=== PATIENT | female | born 1945 | race Caucasian/White ===

== ENCOUNTER 2016-11-19 14:57 | Inpatient (IN) ==
[2016-11-19] MEDS ORDERED: DUONEB NEB ONE (15:05)
[2016-11-19] MEDS ORDERED: SOLU-MEDROL 125 MG IVP STA ×2 (15:19→22:19)
[2016-11-19] MEDS ORDERED: DUONEB NEB STA ×2 (15:19→16:57)
[2016-11-19 15:28] LABS: ABG BASE EXCESS 1 (-2.0-2.0); ABG HCO3 25.6 (22.0-26.0); ABG PCO2 38.9 mmHg (35-45); ABG PH 7.426 (7.35-7.45); ABG TCO2 27 (22.0-28.0)
[2016-11-19 15:47] LABS: BASOPHILS % (AUTO) 0.5 % (0.0-3.0); EOSINOPHILS # (AUTO) 0.1 K/ul (0.0-0.7); EOSINOPHILS % (AUTO) 1.6 % (0.0-7.0); HEMATOCRIT 36.3 % (37.0-47.0); HEMOGLOBIN 12.2 g/dl (12.0-16.0); IMMATURE GRANULOCYTE % (AUTO) 1.1 % (0.0-5.0); LYMPHOCYTES # (AUTO) 1.6 K/uL (0.60-3.4); LYMPHOCYTES % (AUTO) 25.2 (10.0-50.0); MEAN CORPUSCULAR HEMOGLOBIN 30.3 pg (27.0-31.0); MEAN CORPUSCULAR HGB CONC 33.6 (31.8-35.4); MEAN CORPUSCULAR VOLUME 90.1 fl (81.0-99.0); MONOCYTES # (AUTO) 0.8 K/uL (0.4-2.0); NEUTROPHILS # (AUTO) 3.8 K/ul (2.0-6.9); NEUTROPHILS % (AUTO) 59.6; PLATELET COUNT 170 10^3/uL (140-440); RED BLOOD COUNT 4.03 10^6/ul (4.20-5.40); WHITE BLOOD COUNT 6.42 K/ul (4.6-10.2)
[2016-11-19 16:09] LABS: FLU INTERNAL QC INTERNAL QC VALID; RAPID FLU A NEGATIVE (NEGATIVE); RAPID FLU B NEGATIVE (NEGATIVE)
[2016-11-19 16:25] LABS: ALBUMIN 3.5 g/dL (3.4-5.0); ANION GAP 12.9; BILIRUBIN,TOTAL 0.55 mg/dL (0.00-1.20); BUN/CREATININE RATIO 10.58; CALCIUM 8.8 mg/dL (8.2-10.2); CREATININE 0.85 mg/dL (0.60-1.30); POTASSIUM 2.9 mmol/L (3.5-5.10); TROPONIN I 0.012 ng/ml (0.0000-0.4000)
--- NOTE | 2016-11-19 17:05 | DI ---
EXAM: Chest two views HISTORY: Shortness of air COMPARISON: 04/29/2014 TECHNIQUE: Two views of the chest were performed FINDINGS: No airspace consolidation. There is suture line in the right upper lung. Lungs are hype rinflated. There is no pleural effusion or pneumothorax. The heart is normal in size. The mediast inal contour is unchanged, noting atherosclerosis. There are no acute abnormalities of the bones. C alcified breast implant noted. IMPRESSION: 1. No acute cardiopulmonary process. 2. Hyperinflated lungs suggest chronic obstructive pulmonary disease.
--- NOTE | 2016-11-19 17:19 | ED.PDOC ---
General ED Provider: Dr. NORM GERMAIN Chief Complaint: Shortness of Air Stated Complaint: short of air Time Seen by Physician: 15:00 Mode of Arrival: Stretcher Information Source: Patient Exam Limitations: No limitations [facility] and Triage Documentation Reviewed and Agree: Yes Respiratory Complaint Exam - Respiratory Complaint/Exam Symptoms Are: Resolved Timing: Intermittent Initial Severity: Moderate Current Severity: Moderate Location: Chest Character: Reports: Non-productive cough Aggravating: Reports: Weather, Deep breaths, Recumbent position Alleviating: Reports: Bronchodilators Associated Signs and Symptoms: Denies: Rapid breathing, Dyspnea, Fever, Chills, Chest pain, Pleuritic chest pain, Wheezing, Hemoptysis, Dizziness, Calf pain, Calf swelling, Edema, URI, Nasal congestion, Hoarseness, Sinus discomfort, Vomiting, Sore throat, Weight loss, Decreased oral intake, Increased thirst, Increased appetite, Increased urination Related History: Reports: Similar episode History of Healthcare-Acquired Pneumonia: No Related Surgical History: Reports: None Pseudomonas Risk Factors: Reports: Chronic Lung Disease Review of Systems - Review Of Systems Constitutional: Reports: Malaise Eyes: Reports: No symptoms Ears, Nose, Mouth, Throat: Reports: No symptoms Respiratory: Reports: Cough, Short of air, Wheezing Cardiac: Reports: No symptoms GI: Reports: No symptoms : Reports: No symptoms Musculoskeletal: Reports: No symptoms Skin: Reports: No symptoms Neurological: Reports: No symptoms Endocrine: Reports: No symptoms Hematologic/Lymphatic: Reports: No symptoms All Other Systems: Reviewed and Negative Past Medical History - Past Medical History Previously Healthy: No Endocrine: Reports: None Cardiovascular: Reports: Hypertension Respiratory: Reports: COPD Hematological: Reports: None Gastrointestinal: Reports: None Genitourinary: Reports: None Neuro/Psych: Reports: None Musculoskeletal: Reports: None Cancer: Reports: None Last Menstrual Period: hysterectomy - Surgical History General Surgical History: Reports: Hysterectomy - Family History Family History: Reports: Unknown - Social History Smoking Status: Former smoker Hx Substance Use: No Alcohol Screening: Occasionally Physical Exam - Physical Exam Appearance: Ill-appearing Ill-appearing: Moderate Pain Distress: Moderate Eyes: LAURIE, EOMI, Conjunctiva clear ENT: Ears normal, Nose normal, Oropharynx normal Respiratory: Breath sounds diminished, Wheezes Cardiovascular: RRR, Pulses normal, No rub, No murmur GI/: Soft, Nontender, No masses, Bowel sounds normal, No Organomegaly Musculoskeletal: Normal strength, ROM intact, No edema, No calf tenderness Skin: Warm, Dry, Normal color Neurological: Sensation intact, Motor intact, Reflexes intact, Cranial nerves intact, Alert, Oriented Psychiatric: Affect appropriate, Mood appropriate Physician Notification - Case Discussed Physician Notified: pmd Time of Notification: 17:20 Admit To: Inpatient Critical Care Note - Critical Care Note Total Time (mins): 0 Course - Course Hematology/Chemistry: 11/19/16 15:30 11/19/16 15:30 Orders, Labs, Meds: Lab Review 11/19/16 11/19/16 11/19/16 15:19 15:30 15:42 WBC 6.42 RBC 4.03 L Hgb 12.2 Hct 36.3 L MCV 90.1 MCH 30.3 MCHC 33.6 RDW Coeff of Kizzy 12.3 Plt Count 170 Immature Gran % (Auto) 1.1 Neut % (Auto) 59.6 Lymph % (Auto) 25.2 [place] % (Auto) 12.0 H Eos % (Auto) 1.6 Baso % (Auto) 0.5 Immature Gran # (Auto) 0.1 Neut # 3.8 Lymph # 1.6 [place] # 0.8 Eos # 0.1 Baso # 0.0 D-Dimer 0.93 Puncture Site R radial O2 Saturation 89.0 L ABG pH 7.426 ABG pCO2 38.9 ABG pO2 56.0 L* ABG HCO3 25.6 ABG Total CO2 27 ABG Base Excess 1 Keenan Test + FiO2 % 21.0 Sodium 124 L Potassium 2.9 L Chloride 87 L Carbon Dioxide 27 Anion Gap 12.9 BUN 9 Creatinine 0.85 Estimated GFR (MDRD) 66.00 BUN/Creatinine Ratio 10.58 Glucose 116 H Calcium 8.8 Total Bilirubin 0.55 AST 53 H ALT 54 Alkaline Phosphatase 68 Total Creatine Kinase 113 Troponin I 0.0120 B-Natriuretic Peptide 43 Total Protein 7.0 Albumin 3.5 Globulin 3.5 Albumin/Globulin Ratio 1.00 Influenza A (Rapid) Negative Influenza B (Rapid) Negative Orders Category Date Time Status ABG DRAW REQUEST Stat CARDIO 11/19/16 15:19 Completed EKG-(ED ONLY) Stat CARDIO 11/19/16 15:19 Completed EKG-(ED ONLY) Stat CARDIO 11/19/16 17:13 Ordered NEBULIZER TREATMENT Routine CARDIO 11/19/16 17:12 Ordered NEBULIZER TREATMENT Stat CARDIO 11/19/16 15:19 Completed NEBULIZER TREATMENT Stat CARDIO 11/19/16 16:57 Ordered NEBULIZER TREATMENT Stat CARDIO 11/19/16 17:11 Ordered ED IV/MEDIPORT/POWERPORT .ONCE EMERGENCY 11/19/16 15:19 Active ABG Stat LAB 11/19/16 15:19 Completed B-TYPE NATRIURETIC PEPTIDE Stat LAB 11/19/16 15:30 Completed BLOOD CULTURE Stat LAB 11/19/16 15:30 Received CBC W/ AUTO DIFF Stat LAB 11/19/16 15:30 Completed COMPREHENSIVE METABOLIC PANEL Stat LAB 11/19/16 15:30 Completed CREATINE KINASE Stat LAB 11/19/16 15:30 Completed D-DIMER Stat LAB 11/19/16 15:30 Completed RAPID FLU A/B Stat LAB 11/19/16 15:42 Completed TROPONIN I Stat LAB 11/19/16 15:30 Completed 0.9 % Sodium Chloride [Saline Flush] MEDS 11/19/16 15:19 Active 1 syr IVF PRN PRN Albuterol Sulfate 0.083% Neb [Albuterol 0.083% Neb] MEDS 11/19/16 18:00 Ordered 1 vial NEB RTQ4H Ipratropium/Albuterol Neb [Duoneb] MEDS 11/19/16 15:05 Discontinued 1 vial NEB .STK-MED ONE Ipratropium/Albuterol Neb [Duoneb] MEDS 11/19/16 15:19 Discontinued 1 vial NEB ONCE STA Ipratropium/Albuterol Neb [Duoneb] MEDS 11/19/16 16:57 Discontinued 1 vial NEB ONCE STA Ipratropium/Albuterol Neb [Duoneb] MEDS 11/19/16 18:00 Ordered 1 vial NEB RTQ4H Methylprednisolone Sod Succ/Pf [Solu-Medrol 125 mg] MEDS 11/19/16 15:19 Discontinued 125 mg IVP ONCE STA CHEST, 2 VIEWS PA & LAT Stat RADS 11/19/16 16:25 Completed Medications Generic Name Dose Route Start Last Admin Trade Name Freq PRN Reason Stop Dose Admin Albuterol Sulfate 1 vial 11/19/16 18:00 Albuterol 0.083% Neb NEB RTQ4H DONOVAN Albuterol/Ipratropium 1 vial 11/19/16 18:00 Duoneb NEB RTQ4H DONOVAN Sodium Chloride 1 syr 11/19/16 15:19 Saline Flush IVF PRN PRN To flush IV Discontinued Medications Generic Name Dose Route Start Last Admin Trade Name Freq PRN Reason Stop Dose Admin Albuterol/Ipratropium 1 vial 11/19/16 15:19 11/19/16 17:09 Duoneb NEB 11/19/16 15:20 Not Given ONCE STA Albuterol/Ipratropium 1 vial 11/19/16 16:57 Duoneb NEB 11/19/16 16:58 ONCE STA Methylprednisolone Sodium Succinate 125 mg 11/19/16 15:19 11/19/16 15:55 Solu-Medrol 125 Mg IVP 11/19/16 15:20 125 mg ONCE STA Administration Vital Signs: Temp Pulse Resp BP Pulse Ox 11/19/16 14:58 99.1 F 89 28 H 135/70 92 L Departure - Departure Time of Disposition: 17:20 Disposition: ADMITTED INPATIENT Discharge Problem: Obstructive chronic bronchitis with exacerbation, Hyponatremia Instructions: COPD (Chronic Obstructive Pulmonary Disease) (ED) Condition: Good Pt referred to PMD for follow-up: Yes (admitt now) Allergies/Adverse Reactions: Allergies Iodinated Contrast Media - Oral and [Iodinated Contrast Media - IV Dye] Allergy (Verified 11/19/16 15:06) latex Allergy (Verified 11/19/16 15:06) TAPE Adverse Reaction (Mild, Uncoded 04/25/13 07:56) Rash Home Medications: Ambulatory Orders Aspirin [Aspirin Chewable] 81 mg PO DAILY 04/25/13 Losartan/Hydrochlorothiazide [Losartan-Hctz 100-12.5 mg Tab] 1 each PO DAILY 08/04 Pantoprazole Sodium [Protonix] 40 mg PO DAILY 04/29/14 Amlodipine Besylate 5 mg PO DAILY 07/11/15 Guaifenesin [Mucus Relief] 400 mg PO DAILY PRN tab-cap 04/02/16 Meloxicam 15 mg PO DAILY tab-cap 04/02/16 Umeclidinium Brm/Vilanterol Tr [Anoro Ellipta 62.5-25 Mcg Inh] 1 each IH DAILY inha 04/02/16 Albuterol Sulfate 0.083% Neb [Albuterol 0.083% Neb] 1 vial NEB RTQ4H PRN Levofloxacin [Levaquin] 750 mg PO DAILY 11/19/16 Disposition Discussed With: Patient, Family
[2016-11-19] MEDS ORDERED: POTASSIUM CHLORIDE PREMIX RUN 10 MEQ in PREMIX 100 ML WATER 1 BAG IV STA (17:28)
[2016-11-19] MEDS ORDERED: SODIUM CHLORIDE 1,000 ML IV SCH (17:30)
[2016-11-19] MEDS ORDERED: ALBUTEROL 0.083% NEB NEB SCH (18:00)
[2016-11-19] MEDS: DUONEB NEB SCH ×2 (18:00→22:15)
[2016-11-19] MEDS ORDERED: SOLU-CORTEF 250 MG IVP SCH (19:00)
[2016-11-19 19:48] VITALS: BMI 32.3
[2016-11-19] MEDS: ALBUTEROL 0.083% NEB NEB PRN (20:35)
[2016-11-19] MEDS ORDERED: ALBUTEROL 0.083% NEB NEB ONE ×2 (20:37→23:58)
[2016-11-19] MEDS ORDERED: ZITHROMAX 500 MG in SODIUM CHLORIDE 250 ML IV SCH (21:00)
[2016-11-19] MEDS ORDERED: POTASSIUM CHLORIDE 20 MEQ VIAL-ADDITIVE ONLY IV ONE (23:21)
[2016-11-19 23:28] LABS: ABG BASE EXCESS -1 (-2.0-2.0); ABG HCO3 23.4 (22.0-26.0); ABG PCO2 37.3 mmHg (35-45); ABG PH 7.405 (7.35-7.45); ABG TCO2 25 (22.0-28.0)
[2016-11-19] MEDS: [UNRECOGNIZED DRUG - MIXTURE] IV SCH (23:32)
[2016-11-19 23:43] LABS: ALBUMIN 3.7 g/dL (3.4-5.0); ALBUMIN/GLOBULIN RATIO 0.97; ANION GAP 18.6; BILIRUBIN,TOTAL 0.51 mg/dL (0.00-1.20); BUN/CREATININE RATIO 10.11; CALCIUM 9.1 mg/dL (8.2-10.2); CREATININE 0.89 mg/dL (0.60-1.30); TOTAL PROTEIN 7.5 g/dL (5.8-8.1); TROPONIN I 0.026 ng/ml (0.0000-0.4000)
[2016-11-19 23:46] LABS: CREATINE KINASE MB 4.8 ng/ml (0.0-3.6); POTASSIUM 2.6 mmol/L (3.5-5.10)
--- NOTE | 2016-11-19 23:47 | CT ---
Exam: CT of the chest without contrast History: Shortness of breath Technique: [address] of the chest without intravascular contrast FINDINGS: The lung windows show severe emphysematous change. Parenchymal scarring on the right wit h postoperative changes. No suspicious nodules masses or infiltrates. Medial left lung base scarrin g and atelectasis. Atherosclerotic calcification of the aorta and coronary arteries. No pathologic lymph node enlargement or abundance. No acute findings of the chest wall soft tissues or bony thora x. Bilateral breast prosthesis with capsule calcification. No acute findings of the upper abdomen. Impression: 1. Medial left lung base scarring and atelectasis. Otherwise, no acute findings of the chest 2. Emphysema. 3. Partial pneumonectomy on the right.
[2016-11-19] MEDS ORDERED: ROCEPHIN 1 GM in SODIUM CHLORIDE 50 ML IV STA (23:51)
[2016-11-20] MEDS: ALBUTEROL 0.083% NEB NEB PRN ×3 (00:05→12:35)
[2016-11-20] MEDS: SOLU-CORTEF 250 MG IVP SCH ×5 (00:48→23:43)
[2016-11-20] MEDS: POTASSIUM CHLORIDE PREMIX RUN 100 ML IV ONE ×2 (01:26→02:49)
[2016-11-20] MEDS: DUONEB NEB SCH ×6 (02:09→22:33)
[2016-11-20] MEDS ORDERED: HYDROCORTISONE ONE (05:41)
[2016-11-20 06:25] LABS: ABG BASE EXCESS -1 (-2.0-2.0); ABG HCO3 23.4 (22.0-26.0); ABG PCO2 37.3 mmHg (35-45); ABG PH 7.405 (7.35-7.45); ABG TCO2 25 (22.0-28.0)
[2016-11-20 07:27] LABS: ABG BASE EXCESS -3 (-2.0-2.0); ABG HCO3 21.8 (22.0-26.0); ABG PCO2 35.4 mmHg (35-45); ABG PH 7.397 (7.35-7.45); ABG TCO2 23 (22.0-28.0)
[2016-11-20] MEDS ORDERED: GUAIFENESIN 400 MG PO PRN (08:02)
[2016-11-20] MEDS ORDERED: MUCINEX PO PRN (08:09)
[2016-11-20 08:35] LABS: BASOPHILS % (AUTO) 0.3 % (0.0-3.0); HEMATOCRIT 35.2 % (37.0-47.0); HEMOGLOBIN 12.1 g/dl (12.0-16.0); IMMATURE GRANULOCYTE % (AUTO) 1.8 % (0.0-5.0); LYMPHOCYTES # (AUTO) 0.5 K/uL (0.60-3.4); LYMPHOCYTES % (AUTO) 7.8 (10.0-50.0); MEAN CORPUSCULAR HEMOGLOBIN 30.3 pg (27.0-31.0); MEAN CORPUSCULAR HGB CONC 34.4 (31.8-35.4); MEAN CORPUSCULAR VOLUME 88.2 fl (81.0-99.0); MONOCYTES # (AUTO) 0.3 K/uL (0.4-2.0); MONOCYTES % (AUTO) 4.1 (0-10); NEUTROPHILS # (AUTO) 5.3 K/ul (2.0-6.9); PLATELET COUNT 191 10^3/uL (140-440); RED BLOOD COUNT 3.99 10^6/ul (4.20-5.40); WHITE BLOOD COUNT 6.14 K/ul (4.6-10.2)
[2016-11-20] MEDS ORDERED: LASIX TAB PO PRN (08:36)
[2016-11-20] MEDS: COZAAR PO SCH (08:46)
[2016-11-20] MEDS: ASPIRIN CHEWABLE PO SCH (08:46)
[2016-11-20] MEDS: HYDROCHLOROTHIAZIDE PO SCH (08:46)
[2016-11-20] MEDS: ZITHROMAX 500 MG in SODIUM CHLORIDE 250 ML IV SCH (08:53)
[2016-11-20] MEDS: PROTONIX PO SCH (08:53)
[2016-11-20] MEDS: NON-FORMULARY MEDICATION (Umeclidinium Brm/Vilanterol Tr [Anoro Ellipta 62.5-25 Mcg Inh] 1 IH SCH ×2 (08:58→15:22)
[2016-11-20] MEDS ORDERED: ROCEPHIN 1 GM in SODIUM CHLORIDE 50 ML IV SCH (09:00)
[2016-11-20] MEDS ORDERED: NON-FORMULARY MEDICATION (Meloxicam [Meloxicam] 15 MG) PO SCH ×22 (09:00)
[2016-11-20] MEDS ORDERED: NORVASC PO SCH (09:00)
[2016-11-20] MEDS ORDERED: NON-FORMULARY MEDICATION (Losartan/Hydrochlorothiazide [Losartan-Hctz 100-12.5 Mg Tab] 1 E PO SCH (09:00)
[2016-11-20] MEDS ORDERED: LASIX TAB PO SCH (09:00)
[2016-11-20 09:30] LABS: ALBUMIN 3.5 g/dL (3.4-5.0); ALBUMIN/GLOBULIN RATIO 0.95; BILIRUBIN,TOTAL 0.33 mg/dL (0.00-1.20); BUN/CREATININE RATIO 8.33; CALCIUM 9.1 mg/dL (8.2-10.2); CREATININE 0.84 mg/dL (0.60-1.30); TOTAL PROTEIN 7.2 g/dL (5.8-8.1); TROPONIN I 0.035 ng/ml (0.0000-0.4000)
[2016-11-20 09:42] LABS: CREATINE KINASE MB 8.9 ng/ml (0.0-3.6)
[2016-11-20] MEDS ORDERED: POTASSIUM CHLORIDE 10 MEQ VIAL-ADDITIVE ONLY 40 MEQ in SODIUM CHLORIDE 1,000 ML IV SCH (13:00)
[2016-11-20] MEDS: CARDIZEM PO SCH ×2 (13:40→20:53)
[2016-11-20] MEDS ORDERED: TYLENOL PO STA (13:46)
[2016-11-20] MEDS ORDERED: SODIUM CHLORIDE 0.9%-KCL 40MEQ 1,000 ML IV SCH (15:30)
[2016-11-20] MEDS: [UNRECOGNIZED DRUG - MIXTURE] IV SCH (17:59)
[2016-11-20] MEDS ORDERED: ROCEPHIN ONE ×2 (20:53)
[2016-11-20] MEDS: ROCEPHIN 2 GM in SODIUM CHLORIDE 50 ML IV SCH (20:53)
[2016-11-21] MEDS: DUONEB NEB SCH ×6 (02:18→22:30)
[2016-11-21] MEDS: ALBUTEROL 0.083% NEB NEB PRN ×2 (04:12→23:50)
[2016-11-21] MEDS: SOLU-CORTEF 250 MG IVP SCH ×3 (05:31→17:33)
[2016-11-21] MEDS: PROTONIX PO SCH (05:33)
[2016-11-21 06:37] LABS: BASOPHILS % (AUTO) 0.1 % (0.0-3.0); HEMOGLOBIN 11.7 g/dl (12.0-16.0); IMMATURE GRANULOCYTE % (AUTO) 1.3 % (0.0-5.0); LYMPHOCYTES # (AUTO) 0.6 K/uL (0.60-3.4); LYMPHOCYTES % (AUTO) 3.7 (10.0-50.0); MEAN CORPUSCULAR HEMOGLOBIN 30.6 pg (27.0-31.0); MEAN CORPUSCULAR HGB CONC 34.4 (31.8-35.4); MONOCYTES # (AUTO) 0.6 K/uL (0.4-2.0); MONOCYTES % (AUTO) 3.7 (0-10); NEUTROPHILS # (AUTO) 14.7 K/ul (2.0-6.9); NEUTROPHILS % (AUTO) 91.2; PLATELET COUNT 197 10^3/uL (140-440); RED BLOOD COUNT 3.82 10^6/ul (4.20-5.40); WHITE BLOOD COUNT 16.15 K/ul (4.6-10.2)
[2016-11-21 06:57] LABS: ALBUMIN 3.3 g/dL (3.4-5.0); ANION GAP 13.9; BILIRUBIN,TOTAL 0.38 mg/dL (0.00-1.20); BUN/CREATININE RATIO 13.75; CALCIUM 8.9 mg/dL (8.2-10.2); CREATININE 0.8 mg/dL (0.60-1.30); POTASSIUM 2.9 mmol/L (3.5-5.10); TOTAL PROTEIN 6.6 g/dL (5.8-8.1)
[2016-11-21] MEDS: NON-FORMULARY MEDICATION (Umeclidinium Brm/Vilanterol Tr [Anoro Ellipta 62.5-25 Mcg Inh] 1 IH SCH (08:36)
[2016-11-21] MEDS: HYDROCHLOROTHIAZIDE PO SCH (08:36)
[2016-11-21] MEDS: COZAAR PO SCH (08:37)
[2016-11-21] MEDS: ZITHROMAX 500 MG in SODIUM CHLORIDE 250 ML IV SCH (08:38)
[2016-11-21] MEDS: ASPIRIN CHEWABLE PO SCH (08:38)
[2016-11-21] MEDS: CARDIZEM PO SCH ×2 (09:52→21:07)
[2016-11-21] MEDS ORDERED: NORCO 5-325 PO STA (10:58)
[2016-11-21] MEDS ORDERED: MILK OF MAGNESIA PO STA (17:51)
[2016-11-21] MEDS ORDERED: INFUVITE ADULT IV ONE (18:02)
[2016-11-21] MEDS: INFUVITE ADULT 10 ML in D5%-NS-KCL 20 MEQ/L IV SOL 1,000 ML IV SCH (18:08)
[2016-11-21] MEDS: K-DUR PO SCH (21:07)
[2016-11-21] MEDS: ROCEPHIN 2 GM in SODIUM CHLORIDE 50 ML IV SCH (21:07)
[2016-11-21] MEDS ORDERED: ROCEPHIN ONE ×2 (21:07)
[2016-11-22] MEDS: SOLU-CORTEF 250 MG IVP SCH ×4 (00:02→18:59)
[2016-11-22] MEDS: DUONEB NEB SCH ×6 (02:41→21:10)
[2016-11-22 04:47] LABS: BASOPHILS # (AUTO) 0.1 K/uL (0-0.2); BASOPHILS % (AUTO) 0.3 % (0.0-3.0); HEMOGLOBIN 12.1 g/dl (12.0-16.0); IMMATURE GRANULOCYTE % (AUTO) 2.5 % (0.0-5.0); LYMPHOCYTES # (AUTO) 0.8 K/uL (0.60-3.4); LYMPHOCYTES % (AUTO) 4.1 (10.0-50.0); MEAN CORPUSCULAR HEMOGLOBIN 30.3 pg (27.0-31.0); MEAN CORPUSCULAR HGB CONC 33.6 (31.8-35.4); MEAN CORPUSCULAR VOLUME 90.2 fl (81.0-99.0); MONOCYTES # (AUTO) 0.9 K/uL (0.4-2.0); MONOCYTES % (AUTO) 4.7 (0-10); NEUTROPHILS # (AUTO) 16.4 K/ul (2.0-6.9); NEUTROPHILS % (AUTO) 88.4; PLATELET COUNT 206 10^3/uL (140-440); RED BLOOD COUNT 3.99 10^6/ul (4.20-5.40)
[2016-11-22 05:14] LABS: ALBUMIN 3.5 g/dL (3.4-5.0); ALBUMIN/GLOBULIN RATIO 1.06; ANION GAP 13.7; BILIRUBIN,TOTAL 0.35 mg/dL (0.00-1.20); BUN/CREATININE RATIO 11.53; CALCIUM 8.4 mg/dL (8.2-10.2); CREATININE 0.78 mg/dL (0.60-1.30); TOTAL PROTEIN 6.8 g/dL (5.8-8.1)
[2016-11-22] MEDS: PROTONIX PO SCH (05:30)
[2016-11-22 05:53] LABS: POTASSIUM 2.7 mmol/L (3.5-5.10)
[2016-11-22] MEDS ORDERED: INFUVITE ADULT IV ONE ×3 (08:09→15:00)
[2016-11-22] MEDS: INFUVITE ADULT 10 ML in D5%-NS-KCL 20 MEQ/L IV SOL 1,000 ML IV SCH (08:23)
[2016-11-22] MEDS: COZAAR PO SCH (08:26)
[2016-11-22] MEDS: HYDROCHLOROTHIAZIDE PO SCH (08:26)
[2016-11-22] MEDS: ALBUTEROL 0.083% NEB NEB PRN ×2 (08:26→22:55)
[2016-11-22] MEDS: NON-FORMULARY MEDICATION (Umeclidinium Brm/Vilanterol Tr [Anoro Ellipta 62.5-25 Mcg Inh] 1 IH SCH (08:26)
[2016-11-22] MEDS: CARDIZEM PO SCH ×2 (08:26→21:20)
[2016-11-22] MEDS: K-DUR PO SCH ×2 (08:26→21:20)
[2016-11-22] MEDS: ZITHROMAX 500 MG in SODIUM CHLORIDE 250 ML IV SCH (08:27)
[2016-11-22] MEDS: ASPIRIN CHEWABLE PO SCH (08:27)
--- NOTE | 2016-11-22 10:06 | PN ---
DATE OF VISIT: 11/20/16 SUBJECTIVE: The patient today is much better, much more alert and less dyspneic or tachypneic. LUNGS: Now has some air exchange and no wheezing that is audible both anterior and posteriorly. She also generally feels better. VITALS SIGNS: Temperature 97, pulse 93, blood pressure 169/69, respiratory rate 28 and oxygen saturation 94% with Nebulizer Treatment. It was 95 at 35% venturi. I did advised the patient that she needed to lose weight, this is a must she should. MATTHIASD
[2016-11-22] MEDS ORDERED: INFUVITE ADULT IV SCH (11:00)
[2016-11-22] MEDS ORDERED: [UNRECOGNIZED DRUG - OTHER] IV SCH (11:00)
[2016-11-22 11:32] LABS: ABG PCO2 44.5 mmHg (35-45); ABG PH 7.467 (7.35-7.45)
[2016-11-22 11:35] LABS: ABG BASE EXCESS 8 (-2.0-2.0); ABG HCO3 32.2 (22.0-26.0); ABG TCO2 34 (22.0-28.0)
[2016-11-22] MEDS ORDERED: POTASSIUM CHLORIDE 20 MEQ VIAL-ADDITIVE ONLY IV ONE ×2 (12:25→12:27)
--- NOTE | 2016-11-22 14:13 | ECHO2D ---
Date of Exam: 11/20/16 Ordering Physician: HOSPITALIST--DOROTEO Reason for Echo: RESPIRATORY FAILURE M-Mode Normal Adult Results LV Dimensions Normal Adult Results AoV Opening excursions >1.6 >1.6 LVEDD-base- 3.5-5.8 4.6 Ao root dimensions 2.0-3.7 3.0 LVESD-base- 3.1-4.6 L. Atrium dimensions 1.9-3.8 3.7 Post. Wall thickness 0.8-1.1 1.0 IV septum (thickness) 0.7-1.2 1.1 Post. Wall excursion 0.72-1.3 NORMAL Septal motion NORMAL Systolic motion R. Ventricular cavity 1.5-2.0 NORMAL LVEF 60% 72% Paradoxical septal wall motion NORMAL 2-D : 2-D M Mode Echocardiogram was performed using apical four chamber and left parasternal long and short axis views. Mitral, tricuspid and aortic valves appear to be normal. Contractility of the left ventricle seems to be normal, so is the cavity size. Left atrial cavity size and aortic root appear to be normal. There is no pericardial effusion. There is no thrombus noted in the left ventricular or left aortic cavity. No mitral valve prolapse noted. M-MODE: MV: NORMAL AV: NORMAL TV: NORMAL PV: CHAMBER SIZE: NORMAL WALL MOTION: NORMAL PERICARDIUM: NORMAL INTERPRETATION: 1. NORMAL LEFT VENTRICULAR CONTRACTILITY 2. NORMAL VALVES MTDD
[2016-11-22] MEDS ORDERED: LASIX IVP STA (14:41)
[2016-11-22] MEDS: [UNRECOGNIZED DRUG - OTHER] IV SCH (15:00)
[2016-11-22] MEDS: INFUVITE ADULT IV SCH (15:00)
--- NOTE | 2016-11-22 15:11 | CONS ---
DATE OF CONSULTATION: 11/21/16 HISTORY OF PRESENT ILLNESS: The patient is a 71 year old white female hospitalized with acute bronchitis and chronic lung disease. The patient has hypokalemia and hyponatremia. The patient's condition has steadily improved and her blood pressure today looks better and the pulse rate is 82. The patient has been taken off of Norvasc and put on Cardizem. Saline has been infused with some potassium in it. REVIEW OF SYSTEMS: CONSTITUTIONAL: No night sweats. No fatigue, malaise, lethargy. No fever or chills. HEENT: Eyes: No visual changes. No eye pain. No eye discharge. ENT: No runny nose. No epistaxis. No sinus pain. No sore throat. No odynophagia. No ear pain. No congestion. RESPIRATORY: Cough and congestion is better. Feels better. No hemoptysis. CARDIOVASCULAR: No angina symptoms. No CHF symptoms. No atypical chest pain for CAD. No palpitations. No shortness of breath. No. PND. No Orthopnea. GASTROINTESTINAL: No abdominal pain. No nausea or vomiting. No diarrhea or constipation. No hematemesis. No hematochezia. GENITOURINARY: No urgency. No frequency. No dysuria. No hematuria. No obstructive symptoms. No discharge. No pain. No significant abnormal bleeding. MUSCULOSKELETAL: No musculoskeletal pain. No joint swelling. NEUROLOGICAL: No headache. No neck pain. No syncope. No seizures. No dizziness. PSYCHIATRIC: Not anxious. No depression. No suicidal thoughts. No homicidal thoughts. SKIN: No rash. No lesions. No wounds. ENDOCRINE: No unexplained weight loss. No weight gain. HEMATOLOGIC/LYMPHATIC: No anemia. No purpura. No petechiae. No prolonged or excessive bleeding. No palpable lymph nodes. PHYSICAL EXAMINATION: GENERAL: The patient is oriented to time, place and person. VITAL SIGNS: Temperature 97.3, pulse 82, respiratory 24, blood pressure 139/66 and pulse ox 94%. HEENT: Head normocephalic, atraumatic. Eyes: Extraocular muscles are intact. Pupils are equal, round and reactive to light and accommodation. Ears: No lesions. Nose appeared normal. Throat: No exudate or erythema. NECK: Supple. No JVD, no carotid bruit. No lymphadenopathy or thyromegaly. LUNGS: Decreased breath sounds but clear to auscultation. Percussion note normal. Chest symmetrical. HEART: S1, S2, no S3. No murmurs. No cyanosis or clubbing. No ascites. Pulses: Dorsalis pedis and posterior tibial pulses +1 to +2 both sides. ABDOMEN: Soft. Nontender. Bowel sounds active. No CVA tenderness. No mass felt. EXTREMITIES: No edema. Full range of motion of all extremities, equal. NEUROLOGIC: No focal deficit. Cranial nerves II through XII are grossly intact. No headache, no double vision or headache. SKIN: Not dry. Intact. Turgor - normal. LYMPHATIC: No palpable lymph nodes/no lymphedema. MUSCULOSKELETAL: Normal joints with no swelling. Muscle tone is normal. LABS: Yesterday echocardiogram 2DM- mode was done which showed normal LV contractility with borderline LVH. CK-MB with 8.9 likely source bronchitis and gastritis, seems to be non-cardiac. ASSESSMENT: 1. Acute bronchitis with sever chronic lung disease 2. Hypertension 3. Hyponatremia 4. Hypokalemia 5. CK-MB positive, borderline RECOMMENDATIONS: 1. No change. 2. Continue steroids 3. Continue antibiotic 4. Blood pressure within acceptable range 5. Continue Cardizem 60mg twice a day along with the rest of the medication. 6. Continue Sodium infusion with potassium supplement. 7. Monitor CBC and CMP daily 8. Monitor Cardiac rhythm. CONDITION: Stable MTDD
--- NOTE | 2016-11-22 16:20 | CT ---
EXAM: CT scan of the chest without contrast HISTORY: Extreme shortness of breath, wheezing, rales. TECHNIQUE: Imaging of the chest was performed without contrast. 5 mm thick axial images and bradford l and sagittal images were provided for interpretation. Comparison 11/19/2016 CT scan of the chest. FINDINGS: The heart is normal size. Emphysematous changes are seen throughout the lungs. There is no evidence of focal infiltrate. Bilateral breast implants are again seen. No lytic or blastic le sions are seen within the osseous structures. IMPRESSION: No evidence of infiltrate. Pulmonary emphysema.
[2016-11-22] MEDS ORDERED: SOLU-MEDROL 125 MG IVP STA (18:45)
[2016-11-22] MEDS ORDERED: ROCEPHIN ONE (21:20)
[2016-11-22] MEDS: ROCEPHIN 2 GM in SODIUM CHLORIDE 50 ML IV SCH (21:20)
[2016-11-23] MEDS: SOLU-CORTEF 250 MG IVP SCH ×4 (00:08→18:40)
[2016-11-23] MEDS: DUONEB NEB SCH ×6 (01:08→21:12)
[2016-11-23 05:23] LABS: BASOPHILS # (AUTO) 0.1 K/uL (0-0.2); BASOPHILS % (AUTO) 0.4 % (0.0-3.0); HEMATOCRIT 33.9 % (37.0-47.0); HEMOGLOBIN 11.6 g/dl (12.0-16.0); IMMATURE GRANULOCYTE % (AUTO) 4.1 % (0.0-5.0); LYMPHOCYTES # (AUTO) 0.9 K/uL (0.60-3.4); LYMPHOCYTES % (AUTO) 6.1 (10.0-50.0); MEAN CORPUSCULAR HGB CONC 34.2 (31.8-35.4); MEAN CORPUSCULAR VOLUME 87.6 fl (81.0-99.0); MONOCYTES # (AUTO) 1.3 K/uL (0.4-2.0); MONOCYTES % (AUTO) 8.5 (0-10); NEUTROPHILS # (AUTO) 12.3 K/ul (2.0-6.9); NEUTROPHILS % (AUTO) 80.9; PLATELET COUNT 200 10^3/uL (140-440); RED BLOOD COUNT 3.87 10^6/ul (4.20-5.40); WHITE BLOOD COUNT 15.21 K/ul (4.6-10.2)
[2016-11-23 05:40] LABS: ALBUMIN 3.5 g/dL (3.4-5.0); ALBUMIN/GLOBULIN RATIO 1.13; ANION GAP 11.6; BILIRUBIN,TOTAL 0.49 mg/dL (0.00-1.20); BUN/CREATININE RATIO 12.32; CALCIUM 8.7 mg/dL (8.2-10.2); CREATININE 0.73 mg/dL (0.60-1.30); TOTAL PROTEIN 6.6 g/dL (5.8-8.1)
[2016-11-23] MEDS: PROTONIX PO SCH (05:50)
[2016-11-23 05:54] LABS: POTASSIUM 2.6 mmol/L (3.5-5.10)
[2016-11-23] MEDS: K-DUR PO SCH ×4 (06:17→20:23)
[2016-11-23] MEDS: CARDIZEM PO SCH ×2 (08:00→20:24)
[2016-11-23] MEDS: HYDROCHLOROTHIAZIDE PO SCH (08:00)
[2016-11-23] MEDS: ASPIRIN CHEWABLE PO SCH (08:00)
[2016-11-23] MEDS: ZITHROMAX 500 MG in SODIUM CHLORIDE 250 ML IV SCH (08:01)
[2016-11-23] MEDS: COZAAR PO SCH (08:01)
[2016-11-23] MEDS: NON-FORMULARY MEDICATION (Umeclidinium Brm/Vilanterol Tr [Anoro Ellipta 62.5-25 Mcg Inh] 1 IH SCH (08:08)
[2016-11-23] MEDS ORDERED: K-DUR PO SCH (09:00)
[2016-11-23] MEDS ORDERED: LASIX IVP STA (10:45)
[2016-11-23] MEDS ORDERED: POTASSIUM CHLORIDE PREMIX RUN 10 MEQ in PREMIX 100 ML WATER 1 BAG IV STA (10:45)
[2016-11-23] MEDS ORDERED: K-DUR PO ONE (11:00)
--- NOTE | 2016-11-23 11:35 | PCM.CONS ---
CONSULTING PROVIDER: Dr. MAGDALENA FLETCHER ATTENDING PROVIDER: Dr. Kermit SADLER DATE OF SERVICE: 11/23/16 SUBJECTIVE: This 71 year old WHITE/ F was hospitalized 11/19/16. The patient was admitted with respiratory failure. Her condition is slowly improving. She was given IV Lasix yesterday which helped her. Respiratory status has improved. She is able to talk now and is no distress. REVIEW OF SYSTEMS: CONSTITUTIONAL: No night sweats. No fatigue, malaise, lethargy. No fever or chills. HEENT: Eyes: No visual changes. No eye pain. No eye discharge. ENT: No runny nose. No epistaxis. No sinus pain. No odynophagia. No congestion. RESPIRATORY: No cough, no congestion. No hemoptysis. CARDIOVASCULAR: No angina symptoms. No CHF symptoms. No atypical chest pain for CAD. No palpitations. Less shortness of breath. No PND, no orthopnea. GASTROINTESTINAL: No abdominal pain. No nausea or vomiting. No diarrhea or constipation. No hematemesis. No hematochezia. GENITOURINARY: No urgency. No frequency. No dysuria. No hematuria. No obstructive symptoms. No discharge. No pain. No significant abnormal bleeding. MUSCULOSKELETAL: No musculoskeletal pain; no joint swelling. NEUROLOGICAL: Awake, alert, oriented to time, place and person. No headache. No neck pain. No syncope. No seizures. No dizziness. PSYCHIATRIC: Not anxious. No depression. No suicidal thoughts. No homicidal thoughts. SKIN: No rash. No lesions. No wounds. ENDOCRINE: No unexplained weight loss. No weight gain. HEMATOLOGIC/LYMPHATIC: No anemia. No purpura. No petechiae. No prolonged or excessive bleeding. No palpable lymph nodes. PHYSICAL EXAMINATION: GENERAL: The patient is awake, alert and oriented, lying/sitting in bed in no distress. VITAL SIGNS: Temperature 97.7 F, Pulse 82, Respiratory Rate 26, BP 163/69, Pulse Ox 89% HEENT: Head normocephalic, atraumatic. Eyes: Extraocular muscles are intact. Pupils are equal, round and reactive to light and accommodation. Ears: No lesions. Nose appeared normal. Throat: No exudate or erythema. NECK: Supple. No JVD, no carotid bruit. No lymphadenopathy or thyromegaly. LUNGS: Decreased breath sounds with mild wheeze. Percussion note normal. Chest symmetrical. HEART: S1, S2, no S3. No murmurs. No cyanosis or clubbing. No ascites. Pulses: Dorsalis pedis and posterior tibial pulses +1 to +2 both sides. ABDOMEN: Soft. Non-tender. Bowel sounds active. No CVA tenderness. No mass felt. EXTREMITIES: No edema. Full range of motion of all extremities, equal. NEUROLOGIC: No focal deficit. Cranial nerves II through XII are grossly intact. No headache, no double vision or headache. SKIN: Not dry. Intact. Turgor-normal. LYMPHATIC: No palpable lymph nodes/no lymphedema. MUSCULOSKELETAL: Normal joints with no swelling. Muscle tone is normal. LAB REVIEW: 11/23/16 05:20 11/23/16 05:20 11/23/16 05:20: WBC 15.21 H, RBC 3.87 L, Hgb 11.6 L, Hct 33.9 L, MCV 87.6, MCH 30.0, MCHC 34.2, RDW Coeff of Kizzy 12.8, Plt Count 200, Immature Gran % (Auto) 4.1, Neut % (Auto) 80.9, Lymph % (Auto) 6.1 L, [place] % (Auto) 8.5, Eos % (Auto) 0.0, Baso % (Auto) 0.4, Immature Gran # (Auto) 0.6, Neut # 12.3 H, Lymph # 0.9, [place] # 1.3, Eos # 0.0, Baso # 0.1, Sodium 129 L, Potassium 2.6 L*, Chloride 82 L , Carbon Dioxide 38 H D, Anion Gap 11.6, BUN 9, Creatinine 0.73, Estimated GFR ( MDRD) 78.00, BUN/Creatinine Ratio 12.32, Glucose 148 H, Calcium 8.7, Total Bilirubin 0.49, AST 91 H, ALT 72, Alkaline Phosphatase 54, B-Natriuretic Peptide 194 H, Total Protein 6.6, Albumin 3.5, Globulin 3.1, Albumin/Globulin Ratio 1.13 11/22/16 13:55: B-Natriuretic Peptide 263 H 11/22/16 11:00: Puncture Site Rbrach, O2 Saturation 92.0 L, ABG pH 7.467 H, ABG pCO2 44.5, ABG pO2 59.0 L*, ABG HCO3 32.2 H, ABG Total CO2 34 H, ABG Base Excess 8 H, O2 Delivery Device Vm, Oxygen Liter Flow 3.00, FiO2 % 35.0 ASSESSMENT: 1. Respiratory failure seems to be resolving. 2. Bronchitis is resolving. 3. Hyponatremia resolving. RECOMMENDATIONS/PLAN: 1. Continue same treatment with steroids and antibiotics. 2. Potassium 40 mEq about [address] scan showed no pneumonia. 4. The patient is being given potassium supplements IV and p.o. for hypokalemia , will monitor. Plan and coordination of the patient's care discussed in the presence of Technology Sales Representative and Nurse. CONDITION: Stable SCRIBED BY: TONI BUTCHER Supervisor [employer] scribed while in presence of service performed by Dr. MAGDALENA FLETCHER on 11/23/16 ([id number])
--- NOTE | 2016-11-23 13:07 | CONS ---
DATE OF SERVICE: 11/22/16 CONSULT FOLLOWUP SUBJECTIVE: The patient is a 71 year old white female hospitalized with acute respiratory failure with severe COPD. The patient's respiratory status is stable as long as she is at rest but with any exertion she gets out of breath. The patient is being treated with steroids and antibiotics and NEBS treatment. The patient's pulse rate has been brought under control to some extent with Cardizem. We will increase the Cardizem to 90mg twice a day and may have to go up to 120mg twice a day. The systolic blood pressure is still elevated but it fluctuates. The patient has history of right pneumonectomy and C of the lung. Total right upper lobe was removed in 2010. She quit smoking in 1985. Her other problems are hypernatremia and hypokalemia which are being taken care with the supplements. REVIEW OF SYSTEMS: CONSTITUTIONAL: No night sweats. No fatigue, malaise, lethargy. No fever or chills. HEENT: Eyes: No visual changes. No eye pain. No eye discharge. ENT: No runny nose. No epistaxis. No sinus pain. No sore throat. No odynophagia. No ear pain. No congestion. RESPIRATORY: Mild cough, no congestion. No hemoptysis. CARDIOVASCULAR: No angina symptoms. No CHF symptoms. No atypical chest pain for CAD. No palpitations. Shortness of breath on minimal exertion. No PND. No orthopnea. GASTROINTESTINAL: No abdominal pain. No nausea or vomiting. No diarrhea or constipation. No hematemesis. No hematochezia. GENITOURINARY: No urgency. No frequency. No dysuria. No hematuria. No obstructive symptoms. No discharge. No pain. No significant abnormal bleeding. MUSCULOSKELETAL: No musculoskeletal pain. No joint swelling. No arthritis. NEUROLOGICAL: No headache. No neck pain. No syncope. No seizures. No dizziness. PSYCHIATRIC: Not anxious. No depression. No suicidal thoughts. No homicidal thoughts. SKIN: No rash. No lesions. No wounds. ENDOCRINE: No unexplained weight loss. No weight gain. HEMATOLOGIC/LYMPHATIC: No anemia. No purpura. No petechiae. No prolonged or excessive bleeding. No palpable lymph nodes. PHYSICAL EXAMINATION: GENERAL: The patient is oriented to time, place and person. VITAL SIGNS: Temperature 96.8, pulse 90, respiratory 24, blood pressure 190/74 and pulse ox 92% on 2 liters. HEENT: Head normocephalic, atraumatic. Eyes: Extraocular muscles are intact. Pupils are equal, round and reactive to light and accommodation. Ears: No lesions. Nose appeared normal. Throat: No exudate or erythema. NECK: Supple. No JVD, no carotid bruit. No lymphadenopathy or thyromegaly. LUNGS: Decreased breath sounds with mild wheeze bilaterally. Percussion note normal. Chest symmetrical. HEART: S1, S2, no S3. No murmurs. No cyanosis or clubbing. No ascites. Pulses: Dorsalis pedis and posterior tibial pulses +1 to +2 both sides. ABDOMEN: Soft. Nontender. Bowel sounds active. No CVA tenderness. No mass felt. EXTREMITIES: No edema. Full range of motion of all extremities, equal. NEUROLOGIC: No focal deficit. Cranial nerves II through XII are grossly intact. No headache, no double vision or headache. SKIN: Not dry. Intact. Turgor - normal. LYMPHATIC: No palpable lymph nodes/no lymphedema. MUSCULOSKELETAL: Normal joints with no swelling. Muscle tone is normal. LABS: Hgb 12.1, hct 36, WBC 18,000 normal differential, creatinine 1.7, BUN 9, sodium has gone up to 129, potassium 2.7, glucose 157, BNP and D-dimer negative. As mentioned in earlier notes Echo 2DM- Mode showed normal LV contractility. ASSESSMENT: 1. Acute respiratory failure with chronic lung disease with acute bronchitis 2. Obesity 3. Hypokalemia 4. Hyponatremia 5. C of the lung with severe chronic lung disease with pneumonectomy RECOMMENDATIONS: 1. Continue the same management with IV steroids, antibiotics, NEBS treatment and potassium supplements 2. Continue Sodium infusion 3. Watch for fluid overload 4. The patient's in the room and this discussed. CONDITION: Stable MTDD
--- NOTE | 2016-11-23 13:36 | CONS ---
DATE OF CONSULTATION: 11/20/16 REASON FOR CONSULTATION: Chronic lung disease, bronchitis and shortness of breath. HISTORY OF PRESENT ILLNESS: The patient is a 71 year old white female was hospitalized on 11/19/16 with acute respiratory failure with pO2 less then 50. The patient has been treated as an outpatient by the primary physician for past three weeks with two rounds of Levaquin. The patient was hospitalized after being seen in the ER by the ER attending. The patient's condition has improved according to the patient she is feeling a lot of better. REVIEW OF SYSTEMS: CONSTITUTIONAL: No night sweats. Weakness and fatigue. No fever or chills. HEENT: Eyes: No visual changes. No eye pain. No eye discharge. ENT: No runny nose. No epistaxis. No sinus pain. No sore throat. No odynophagia. No ear pain. No congestion. RESPIRATORY: Cough and congestion with yellowish sputum production. No hemoptysis. CARDIOVASCULAR: No angina symptoms. No CHF symptoms. No atypical chest pain for CAD. No palpitations. Shortness of breath on minimal exertion. No PND. No Orthopnea. GASTROINTESTINAL: No abdominal pain. No nausea or vomiting. No diarrhea or constipation. No hematemesis. No hematochezia. Appetite is improving. GENITOURINARY: No urgency. No frequency. No dysuria. No hematuria. No obstructive symptoms. No discharge. No pain. No significant abnormal bleeding. MUSCULOSKELETAL: No musculoskeletal pain. No joint swelling. NEUROLOGICAL: No headache. No neck pain. No syncope. No seizures. No dizziness. PSYCHIATRIC: Not anxious. No depression. No suicidal thoughts. No homicidal thoughts. SKIN: No rash. No lesions. No wounds. ENDOCRINE: No unexplained weight loss. No weight gain. HEMATOLOGIC/LYMPHATIC: No anemia. No purpura. No petechiae. No prolonged or excessive bleeding. No palpable lymph nodes. MEDICATIONS: Aspirin 81mg PO daily Losartan/ Hydrochlorothiazide 100-12.5 PO daily Protonix 40mg PO daily Amlodipine 5mg PO daily Meloxicam 15mg PO daily Lasix 20mg PO daily Albuterol NEBS Q 4 as needed ALLERGIES: Iodinated Contrast Latex Tape PAST MEDICAL HISTORY/PAST SURGICAL HISTORY: Hypertension Dyslipidemia Severe chronic lung disease Osteoarthritis Hysterectomy SOCIAL/PERSONAL/FAMILY HISTORY: The patient is non-smoker, no alcohol abuse, leaves by herself with help from family members. She does all activity of daily living. The patient is a heavy former smoker. PHYSICAL EXAMINATION: GENERAL: The patient is oriented to time, place and person. VITAL SIGNS: Temperature 97.4, pulse 94, respiratory 24, blood pressure 170/82 and pulse ox 93%. HEENT: Head normocephalic, atraumatic. Eyes: Extraocular muscles are intact. Pupils are equal, round and reactive to light and accommodation. Ears: No lesions. Nose appeared normal. Throat: No exudate or erythema. NECK: Supple. No JVD, no carotid bruit. No lymphadenopathy or thyromegaly. LUNGS: Decreased breath sounds but clear to auscultation. Percussion note normal. Chest symmetrical. HEART: S1, S2, no S3. No murmurs. No cyanosis or clubbing. No ascites. Pulses: Dorsalis pedis and posterior tibial pulses +2 bilaterally. Increased AP Diameter of the chest. ABDOMEN: Soft. Nontender. Bowel sounds active. No CVA tenderness. No mass felt. EXTREMITIES: No edema. Full range of motion of all extremities, equal. NEUROLOGIC: No focal deficit. Cranial nerves II through XII are grossly intact. No headache, no double vision or headache. SKIN: Not dry. Intact. Turgor - normal. LYMPHATIC: No palpable lymph nodes/no lymphedema. MUSCULOSKELETAL: Normal joints with no swelling. Muscle tone is normal. LABS: hgb 12.1, hct 35, WBC 6,100 normal differential, creatinine 0.8, BUN 7, potassium 3, sodium 123, D-dimer negative, BNP normal, CK-MB positive borderline high 9.0 likely non-cardiac. EKG sinus rhythm, no acute changes. Telemetry strips sinus rhythm, no ST-T wave change. ABG on admission pO2 56, pCO2 38, pH 7.42 with 89% saturation done on 11/19/16. Troponin was negative on admission. Influenza A & B negative. ASSESSMENT: 1. Acute respiratory failure with acute bronchitis 2. Severe chronic lung disease 3. Hypertension 4. Obesity PLAN: 1. The patient had Dobutamine Stress echo done which no evidence of ischemia by ST-T wave change. This was done on 09/27/16. 2. Echocardiogram was done today. 2DM-Mode which showed LVH with normal LV contractility, paradoxical septal wall motion and LV size is normal. RECOMMENDATION: 1. Discontinue Norvasc 2. Add Cardizem 60mg twice a day. The change will be beneficial and will try to increase the dose of Cardizem depending upon the systolic blood pressures. Systolic blood pressure is high because of possibility of mild respiratory distress with cough and congestion. The patient has been running heart rate of more than 90 with Cardizem we can bring it down to 70-80. 3. The patient has hyponatremia and hypokalemia we will change the IV fluids to 1,000cc normal saline with 40 meq KCL. 4. There is no evidence of acute MA or ischemia. The patient's source CK-MB could be from respiratory failure with acute pneumonitis/bronchitis. 5. The rest of the of the patient's management agreed with it. CONDITION: Stable The patient's case discussed with attending. Will follow. Thank you. KING
[2016-11-23] MEDS: NYSTATIN ORAL SUSP PO SCH (20:23)
[2016-11-23] MEDS ORDERED: ROCEPHIN ONE (20:26)
[2016-11-23] MEDS: ROCEPHIN 2 GM in SODIUM CHLORIDE 50 ML IV SCH (20:26)
[2016-11-24] MEDS: SOLU-CORTEF 250 MG IVP SCH ×4 (00:47→17:14)
[2016-11-24] MEDS: DUONEB NEB SCH ×6 (01:23→22:43)
[2016-11-24] MEDS ORDERED: INFUVITE ADULT IV ONE ×2 (05:14→05:26)
[2016-11-24 05:22] LABS: BASOPHILS # (AUTO) 0.1 K/uL (0-0.2); BASOPHILS % (AUTO) 0.7 % (0.0-3.0); HEMATOCRIT 34.9 % (37.0-47.0); HEMOGLOBIN 11.8 g/dl (12.0-16.0); IMMATURE GRANULOCYTE % (AUTO) 4.7 % (0.0-5.0); LYMPHOCYTES # (AUTO) 1.1 K/uL (0.60-3.4); LYMPHOCYTES % (AUTO) 7.2 (10.0-50.0); MEAN CORPUSCULAR HEMOGLOBIN 29.8 pg (27.0-31.0); MEAN CORPUSCULAR HGB CONC 33.8 (31.8-35.4); MEAN CORPUSCULAR VOLUME 88.1 fl (81.0-99.0); MONOCYTES # (AUTO) 1.2 K/uL (0.4-2.0); MONOCYTES % (AUTO) 8.1 (0-10); NEUTROPHILS # (AUTO) 11.8 K/ul (2.0-6.9); NEUTROPHILS % (AUTO) 79.3; PLATELET COUNT 215 10^3/uL (140-440); RED BLOOD COUNT 3.96 10^6/ul (4.20-5.40); WHITE BLOOD COUNT 14.94 K/ul (4.6-10.2)
[2016-11-24] MEDS: INFUVITE ADULT IV SCH (05:26)
[2016-11-24] MEDS: [UNRECOGNIZED DRUG - OTHER] IV SCH (05:26)
[2016-11-24] MEDS: NYSTATIN ORAL SUSP PO SCH ×4 (05:30→22:17)
[2016-11-24] MEDS: PROTONIX PO SCH (05:30)
[2016-11-24 05:51] LABS: ALBUMIN 3.5 g/dL (3.4-5.0); ALBUMIN/GLOBULIN RATIO 1.17; ANION GAP 10.4; BILIRUBIN,TOTAL 0.55 mg/dL (0.00-1.20); BUN/CREATININE RATIO 14.49; CALCIUM 9.2 mg/dL (8.2-10.2); CREATININE 0.69 mg/dL (0.60-1.30); POTASSIUM 3.4 mmol/L (3.5-5.10); TOTAL PROTEIN 6.5 g/dL (5.8-8.1)
[2016-11-24] MEDS: ASPIRIN CHEWABLE PO SCH (07:59)
[2016-11-24] MEDS: COZAAR PO SCH (08:00)
[2016-11-24] MEDS: CARDIZEM PO SCH ×3 (08:00→22:16)
[2016-11-24] MEDS: K-DUR PO SCH ×3 (08:00→22:16)
[2016-11-24] MEDS: HYDROCHLOROTHIAZIDE PO SCH (08:01)
[2016-11-24] MEDS: NON-FORMULARY MEDICATION (Umeclidinium Brm/Vilanterol Tr [Anoro Ellipta 62.5-25 Mcg Inh] 1 IH SCH (08:02)
[2016-11-24] MEDS: ZITHROMAX 500 MG in SODIUM CHLORIDE 250 ML IV SCH (09:28)
[2016-11-24] MEDS ORDERED: LASIX IVP STA (10:20)
[2016-11-24] MEDS: COLACE PO SCH ×2 (11:48→22:16)
[2016-11-24] MEDS: ROCEPHIN 2 GM in SODIUM CHLORIDE 100 ML IV SCH (22:41)
[2016-11-25] MEDS: SOLU-CORTEF 250 MG IVP SCH ×4 (00:47→19:10)
[2016-11-25] MEDS: DUONEB NEB SCH ×6 (01:52→22:50)
[2016-11-25] MEDS: PROTONIX PO SCH (06:20)
[2016-11-25] MEDS: NYSTATIN ORAL SUSP PO SCH ×4 (06:20→20:24)
[2016-11-25 06:36] LABS: HEMATOCRIT 35.2 % (37.0-47.0); HEMOGLOBIN 11.9 g/dl (12.0-16.0); MEAN CORPUSCULAR HEMOGLOBIN 30.4 pg (27.0-31.0); MEAN CORPUSCULAR HGB CONC 33.8 (31.8-35.4); PLATELET COUNT 201 10^3/uL (140-440); RED BLOOD COUNT 3.91 10^6/ul (4.20-5.40)
[2016-11-25 06:38] LABS: ANISOCYTOSIS NOT PRESENT (NOT PRESENT)
[2016-11-25 07:04] LABS: ALBUMIN 3.4 g/dL (3.4-5.0); CALCIUM 9.1 mg/dL (8.2-10.2); POTASSIUM 3.3 mmol/L (3.5-5.10); TOTAL PROTEIN 6.3 g/dL (5.8-8.1)
[2016-11-25 07:05] LABS: ALBUMIN/GLOBULIN RATIO 1.17; ANION GAP 10.3; BILIRUBIN,TOTAL 0.51 mg/dL (0.00-1.20); BUN/CREATININE RATIO 12.85; CREATININE 0.7 mg/dL (0.60-1.30)
[2016-11-25] MEDS: ASPIRIN CHEWABLE PO SCH (08:51)
[2016-11-25] MEDS: CARDIZEM PO SCH ×4 (08:51→20:25)
[2016-11-25] MEDS: COZAAR PO SCH (08:53)
[2016-11-25] MEDS: COLACE PO SCH ×2 (08:53→20:24)
[2016-11-25] MEDS: HYDROCHLOROTHIAZIDE PO SCH (08:54)
[2016-11-25] MEDS: ZITHROMAX 500 MG in SODIUM CHLORIDE 250 ML IV SCH (08:55)
[2016-11-25] MEDS: K-DUR PO SCH ×3 (08:55→20:25)
[2016-11-25] MEDS: NON-FORMULARY MEDICATION (Umeclidinium Brm/Vilanterol Tr [Anoro Ellipta 62.5-25 Mcg Inh] 1 IH SCH (08:55)
[2016-11-25] MEDS ORDERED: LASIX IVP STA (11:28)
--- NOTE | 2016-11-25 13:25 | CONS ---
DATE OF SERVICE: 11/24/16 CONSULT FOLLOWUP SUBJECTIVE: The patient is a 71 year old white female hospitalized with COPD, acute bronchitis/pneumonitis, hypokalemia and hyponatremia. The patient's condition has slowly improved and today she is resting well with no distress. REVIEW OF SYSTEMS: CONSTITUTIONAL: No night sweats. No fatigue, malaise, lethargy. No fever or chills. HEENT: Eyes: No visual changes. No eye pain. No eye discharge. ENT: No runny nose. No epistaxis. No sinus pain. No sore throat. No odynophagia. No ear pain. No congestion. RESPIRATORY: Mild cough, no congestion. No hemoptysis. CARDIOVASCULAR: No angina symptoms. No CHF symptoms. No atypical chest pain for CAD. No palpitations. No shortness of breath. Mild distress with exertion. GASTROINTESTINAL: No abdominal pain. No nausea or vomiting. No diarrhea or constipation. No hematemesis. No hematochezia. GENITOURINARY: No urgency. No frequency. No dysuria. No hematuria. No obstructive symptoms. No discharge. No pain. No significant abnormal bleeding. MUSCULOSKELETAL: No musculoskeletal pain. No joint swelling. No arthritis. NEUROLOGICAL: No headache. No neck pain. No syncope. No seizures. No dizziness. PSYCHIATRIC: Not anxious. No depression. No suicidal thoughts. No homicidal thoughts. SKIN: No rash. No lesions. No wounds. ENDOCRINE: No unexplained weight loss. No weight gain. HEMATOLOGIC/LYMPHATIC: No anemia. No purpura. No petechiae. No prolonged or excessive bleeding. No palpable lymph nodes. PHYSICAL EXAMINATION: GENERAL: The patient is oriented to time, place and person. VITAL SIGNS: Temperature 97., pulse 93, respiratory rate 17, blood pressure 150/ 76 and pulse ox 95%. HEENT: Head normocephalic, atraumatic. Eyes: Extraocular muscles are intact. Pupils are equal, round and reactive to light and accommodation. Ears: No lesions. Nose appeared normal. Throat: No exudate or erythema. NECK: Supple. No JVD, no carotid bruit. No lymphadenopathy or thyromegaly. LUNGS: Decreased breath sounds but clear to auscultation. Percussion note normal. Chest symmetrical. HEART: S1, S2, no S3. No murmurs. No cyanosis or clubbing. No ascites. Pulses: Dorsalis pedis and posterior tibial pulses +1 to +2 both sides. ABDOMEN: Soft. Nontender. Bowel sounds active. No CVA tenderness. No mass felt. EXTREMITIES: No edema. Full range of motion of all extremities, equal. NEUROLOGIC: No focal deficit. Cranial nerves II through XII are grossly intact. No headache, no double vision or headache. SKIN: Not dry. Intact. Turgor - normal. LYMPHATIC: No palpable lymph nodes/no lymphedema. MUSCULOSKELETAL: Normal joints with no swelling. Muscle tone is normal. LABS: hgb 11.8, hct 34, Wbc14,000 normal differential, creatinine 0.6, BUN 10, potassium 3.4, BNP 194 done on 11/23/16. ASSESSMENT: 1. Acute respiratory failure with severe chronic lung disease. The patient's CK- MB elevated likely from pulled muscle from the stomach and or respiratory muscles. There is no evidence of acute marker event. RECOMMENDATIONS: 1. Agreed with patient's present management. 2. The patient has been on 90mg Cardizem twice a day. 3. Norvasc as been discontinued CONDITION: Stable. MTDD
[2016-11-25] MEDS: ROCEPHIN 2 GM in SODIUM CHLORIDE 100 ML IV SCH (20:25)
[2016-11-25] MEDS ORDERED: INFUVITE ADULT IV ONE ×2 (21:59→22:22)
[2016-11-25] MEDS ORDERED: POTASSIUM CHLORIDE 20 MEQ VIAL-ADDITIVE ONLY IV ONE (22:07)
[2016-11-25] MEDS: [UNRECOGNIZED DRUG - OTHER] IV SCH ×2 (22:11→22:22)
[2016-11-25] MEDS: INFUVITE ADULT IV SCH ×2 (22:11→22:22)
[2016-11-26] MEDS: SOLU-CORTEF 250 MG IVP SCH ×4 (00:06→18:10)
[2016-11-26] MEDS: DUONEB NEB SCH ×6 (01:22→22:48)
[2016-11-26] MEDS: PROTONIX PO SCH (06:14)
[2016-11-26] MEDS: NYSTATIN ORAL SUSP PO SCH ×4 (06:14→20:53)
[2016-11-26 06:55] LABS: BASOPHILS # (AUTO) 0.1 K/uL (0-0.2); BASOPHILS % (AUTO) 0.7 % (0.0-3.0); HEMATOCRIT 35.6 % (37.0-47.0); HEMOGLOBIN 11.9 g/dl (12.0-16.0); IMMATURE GRANULOCYTE % (AUTO) 6.5 % (0.0-5.0); LYMPHOCYTES # (AUTO) 1.3 K/uL (0.60-3.4); LYMPHOCYTES % (AUTO) 7.9 (10.0-50.0); MEAN CORPUSCULAR HEMOGLOBIN 30.4 pg (27.0-31.0); MEAN CORPUSCULAR HGB CONC 33.4 (31.8-35.4); MEAN CORPUSCULAR VOLUME 90.8 fl (81.0-99.0); MONOCYTES # (AUTO) 1.4 K/uL (0.4-2.0); MONOCYTES % (AUTO) 8.6 (0-10); NEUTROPHILS # (AUTO) 12.1 K/ul (2.0-6.9); NEUTROPHILS % (AUTO) 76.3; PLATELET COUNT 217 10^3/uL (140-440); RED BLOOD COUNT 3.92 10^6/ul (4.20-5.40)
[2016-11-26 07:02] LABS: ALBUMIN 3.3 g/dL (3.4-5.0); ALBUMIN/GLOBULIN RATIO 1.22; ANION GAP 9.1; BILIRUBIN,TOTAL 0.47 mg/dL (0.00-1.20); BUN/CREATININE RATIO 14.7; CREATININE 0.68 mg/dL (0.60-1.30); POTASSIUM 3.1 mmol/L (3.5-5.10)
[2016-11-26] MEDS ORDERED: LASIX IVP STA (07:53)
[2016-11-26] MEDS: CARDIZEM PO SCH ×4 (09:10→20:54)
[2016-11-26] MEDS: ASPIRIN CHEWABLE PO SCH (09:10)
[2016-11-26] MEDS: ZITHROMAX 500 MG in SODIUM CHLORIDE 250 ML IV SCH (09:10)
[2016-11-26] MEDS: K-DUR PO SCH ×3 (09:10→20:55)
[2016-11-26] MEDS: COLACE PO SCH ×2 (09:10→20:54)
[2016-11-26] MEDS: HYDROCHLOROTHIAZIDE PO SCH (09:11)
[2016-11-26] MEDS: COZAAR PO SCH (09:11)
[2016-11-26] MEDS: NON-FORMULARY MEDICATION (Umeclidinium Brm/Vilanterol Tr [Anoro Ellipta 62.5-25 Mcg Inh] 1 IH SCH (09:12)
[2016-11-26] MEDS: ALDACTONE PO SCH (09:12)
--- NOTE | 2016-11-26 11:08 | CONS ---
DATE OF SERVICE: 11/25/16 CONSULT FOLLOWUP SUBJECTIVE: The patient is a 71 year old white female hospitalized with multiple medical problems, mainly chronic lung disease with exacerbation. The patient has chronic respiratory failure with hypokalemia. The patient seems to be stabilizing she is laughing, cutting up and feeling somewhat better. The blood pressure clearly was noted to be high. REVIEW OF SYSTEMS: CONSTITUTIONAL: No night sweats. No fatigue, malaise, lethargy. No fever or chills. HEENT: Eyes: No visual changes. No eye pain. No eye discharge. ENT: No runny nose. No epistaxis. No sinus pain. No sore throat. No odynophagia. No ear pain. No congestion. RESPIRATORY: No cough, no congestion. No hemoptysis. CARDIOVASCULAR: No angina symptoms. No CHF symptoms. No atypical chest pain for CAD. No palpitations. Shortness of breath on minimal exertion but not at rest anymore. No chest pain. No PND. No orthopnea. GASTROINTESTINAL: No abdominal pain. No nausea or vomiting. No diarrhea or constipation. No hematemesis. No hematochezia. GENITOURINARY: No urgency. No frequency. No dysuria. No hematuria. No obstructive symptoms. No discharge. No pain. No significant abnormal bleeding. MUSCULOSKELETAL: No musculoskeletal pain. No joint swelling. No arthritis. NEUROLOGICAL: No headache. No neck pain. No syncope. No seizures. No dizziness. PSYCHIATRIC: Not anxious. No depression. No suicidal thoughts. No homicidal thoughts. SKIN: No rash. No lesions. No wounds. ENDOCRINE: No unexplained weight loss. No weight gain. HEMATOLOGIC/LYMPHATIC: No anemia. No purpura. No petechiae. No prolonged or excessive bleeding. No palpable lymph nodes. PHYSICAL EXAMINATION: GENERAL: The patient is oriented to time, place and person. VITAL SIGNS: Temperature 98.2, pulse 80, respiratory rate 17, blood pressure 140 /79 and pulse 99%. HEENT: Head normocephalic, atraumatic. Eyes: Extraocular muscles are intact. Pupils are equal, round and reactive to light and accommodation. Ears: No lesions. Nose appeared normal. Throat: No exudate or erythema. NECK: Supple. No JVD, no carotid bruit. No lymphadenopathy or thyromegaly. LUNGS:Decreased breath sounds but clear to auscultation. Percussion note normal. Chest symmetrical. HEART: S1, S2, no S3. No murmurs. No cyanosis or clubbing. No ascites. Pulses: Dorsalis pedis and posterior tibial pulses +1 to +2 both sides. ABDOMEN: Soft. Nontender. Bowel sounds active. No CVA tenderness. No mass felt. The patient has intercostal space retractions and abdominal breathing. EXTREMITIES: No edema. Full range of motion of all extremities, equal. NEUROLOGIC: No focal deficit. Cranial nerves II through XII are grossly intact. No headache, no double vision or headache. SKIN: Not dry. Intact. Turgor - normal. LYMPHATIC: No palpable lymph nodes/no lymphedema. MUSCULOSKELETAL: Normal joints with no swelling. Muscle tone is normal. LABS: hgb 11.9, hct 35, WBC 13,000 normal differential, creatinine 0.6, BUN 10, potassium 3.4, glucose 141, CK-MB 8.9 on . So far the patient has no evidence of any acute marker event or problems. The patient's pulse is 80, the Cardizem seems to be working. Fluctuations in the blood pressure dependants on the DVT and distress. ASSESSMENT: 1. Acute on chronic respiratory failure seems to be under control 2. Chronic lung disease with bronchitis, seems to be improving some. 3. Hypertension 4. Obesity 5. Hypokalemia, seems to be resolving slowly 6. Hyponatremia, seems to be resolving slowly. RECOMMENDATIONS: 1. Will monitor blood pressure. 2. Advised weight loss diet 3. The patient's cardiovascular status is stable, the patient's echo showed normal LV contractility. I will sign out of the case. Thanks for referral. [facility]
--- NOTE | 2016-11-26 11:11 | PN ---
The patient was seen on Consultation, Hospitalist. Last time the patient was seen was 11/25/16. The patient was seen in the hospital 4-5 times MTDD
[2016-11-27] MEDS: SOLU-CORTEF 250 MG IVP SCH ×5 (00:15→23:05)
[2016-11-27] MEDS: DUONEB NEB SCH ×6 (02:06→22:50)
[2016-11-27] MEDS: LASIX TAB PO SCH ×2 (05:12→14:40)
[2016-11-27] MEDS: MUCINEX PO SCH ×3 (05:12→20:30)
[2016-11-27] MEDS: PROTONIX PO SCH (06:02)
[2016-11-27] MEDS: NYSTATIN ORAL SUSP PO SCH ×4 (06:02→20:29)
[2016-11-27 06:51] LABS: BASOPHILS # (AUTO) 0.1 K/uL (0-0.2); BASOPHILS % (AUTO) 0.6 % (0.0-3.0); HEMATOCRIT 35.7 % (37.0-47.0); IMMATURE GRANULOCYTE % (AUTO) 7.6 % (0.0-5.0); LYMPHOCYTES % (AUTO) 6.1 (10.0-50.0); MEAN CORPUSCULAR HEMOGLOBIN 30.4 pg (27.0-31.0); MEAN CORPUSCULAR HGB CONC 33.6 (31.8-35.4); MEAN CORPUSCULAR VOLUME 90.4 fl (81.0-99.0); MONOCYTES # (AUTO) 1.1 K/uL (0.4-2.0); MONOCYTES % (AUTO) 6.7 (0-10); NEUTROPHILS # (AUTO) 12.8 K/ul (2.0-6.9); PLATELET COUNT 209 10^3/uL (140-440); RED BLOOD COUNT 3.95 10^6/ul (4.20-5.40); WHITE BLOOD COUNT 16.23 K/ul (4.6-10.2)
[2016-11-27 07:10] LABS: ALBUMIN 3.3 g/dL (3.4-5.0); ALBUMIN/GLOBULIN RATIO 1.18; BILIRUBIN,TOTAL 0.71 mg/dL (0.00-1.20); BUN/CREATININE RATIO 15.38; CALCIUM 8.9 mg/dL (8.2-10.2); CREATININE 0.65 mg/dL (0.60-1.30); TOTAL PROTEIN 6.1 g/dL (5.8-8.1)
[2016-11-27] MEDS: NON-FORMULARY MEDICATION (Umeclidinium Brm/Vilanterol Tr [Anoro Ellipta 62.5-25 Mcg Inh] 1 IH SCH (08:51)
[2016-11-27] MEDS: CARDIZEM PO SCH ×4 (08:52→20:30)
[2016-11-27] MEDS: COLACE PO SCH ×2 (08:53→20:29)
[2016-11-27] MEDS: ASPIRIN CHEWABLE PO SCH (08:53)
[2016-11-27] MEDS: COZAAR PO SCH (08:53)
[2016-11-27] MEDS: ALDACTONE PO SCH (08:53)
[2016-11-27] MEDS: K-DUR PO SCH ×3 (08:54→20:29)
[2016-11-27] MEDS: HYDROCHLOROTHIAZIDE PO SCH (08:54)
[2016-11-27] MEDS ORDERED: INFUVITE ADULT IV ONE ×2 (09:51→09:56)
[2016-11-27] MEDS: [UNRECOGNIZED DRUG - OTHER] IV SCH (09:56)
[2016-11-27] MEDS: INFUVITE ADULT IV SCH (09:56)
[2016-11-28] MEDS: DUONEB NEB SCH ×6 (02:16→22:53)
[2016-11-28] MEDS: NYSTATIN ORAL SUSP PO SCH ×4 (05:43→21:05)
[2016-11-28] MEDS: PROTONIX PO SCH (05:43)
[2016-11-28] MEDS: LASIX TAB PO SCH ×2 (05:43→15:52)
[2016-11-28] MEDS: SOLU-CORTEF 250 MG IVP SCH ×4 (05:44→23:08)
[2016-11-28] MEDS: NON-FORMULARY MEDICATION (Umeclidinium Brm/Vilanterol Tr [Anoro Ellipta 62.5-25 Mcg Inh] 1 IH SCH (08:32)
[2016-11-28] MEDS: COZAAR PO SCH (08:33)
[2016-11-28] MEDS: ALDACTONE PO SCH (08:33)
[2016-11-28] MEDS: CARDIZEM PO SCH ×4 (08:33→21:06)
[2016-11-28] MEDS: ASPIRIN CHEWABLE PO SCH (08:34)
[2016-11-28] MEDS: MUCINEX PO SCH ×2 (08:34→21:06)
[2016-11-28] MEDS: COLACE PO SCH ×2 (08:34→21:05)
[2016-11-28] MEDS: K-DUR PO SCH ×3 (08:34→21:05)
[2016-11-28] MEDS: HYDROCHLOROTHIAZIDE PO SCH (08:35)
[2016-11-28] MEDS ORDERED: INFUVITE ADULT IV ONE ×2 (16:29→16:39)
[2016-11-28] MEDS: INFUVITE ADULT IV SCH (16:39)
[2016-11-28] MEDS: [UNRECOGNIZED DRUG - OTHER] IV SCH (16:39)
[2016-11-28 19:10] LABS: ALBUMIN 3.2 g/dL (3.4-5.0); ANION GAP 14.4; BUN/CREATININE RATIO 19.48; CREATININE 0.77 mg/dL (0.60-1.30); PHOSPHORUS 2.9 mg/dL (2.8-4.1)
[2016-11-28 19:11] LABS: POTASSIUM 2.4 mmol/L (3.5-5.10)
[2016-11-28] MEDS: MAG-OX PO SCH (21:12)
[2016-11-29] MEDS: DUONEB NEB SCH ×4 (02:10→14:16)
[2016-11-29] MEDS ORDERED: LASIX TAB ONE (02:33)
[2016-11-29] MEDS: LASIX TAB PO SCH ×2 (04:41→15:58)
[2016-11-29 05:12] LABS: BILIRUBIN,URINE Negative (NEGATIVE); KETONES,URINE Negative (NEGATIVE); LEUKOCYTE ESTERASE ,URINE Trace (NEGATIVE); NITRITE,URINE Negative (NEGATIVE); PH,URINE 7.5 (5-9); PROTEIN,URINE Negative (NEGATIVE); URINE, BLOOD 2+ (NEGATIVE)
[2016-11-29 05:15] LABS: ADD URINE MICROSCOPIC YES
[2016-11-29] MEDS: PROTONIX PO SCH (05:39)
[2016-11-29] MEDS: NYSTATIN ORAL SUSP PO SCH ×2 (05:39→12:00)
[2016-11-29] MEDS ORDERED: SOLU-CORTEF 100 MG IVP SCH (06:00)
[2016-11-29] MEDS ORDERED: SODIUM CHLORIDE IV SCH (06:00)
[2016-11-29] MEDS ORDERED: SOLU CORTEF IV SCH (06:00)
[2016-11-29] MEDS: ASPIRIN CHEWABLE PO SCH (08:18)
[2016-11-29] MEDS: K-DUR PO SCH ×2 (08:19→15:58)
[2016-11-29] MEDS: MUCINEX PO SCH (08:19)
[2016-11-29] MEDS: CARDIZEM PO SCH ×2 (08:19)
[2016-11-29] MEDS: ALDACTONE PO SCH (08:19)
--- NOTE | 2016-11-29 08:19 | PN ---
DATE OF VISIT: 11/25/16 SUBJECTIVE: The patient seems to be better and the breath sounds are now audible and wheezing is mostly in the right side lower. The wheezing is also much less. She seemed to be comfortable and indeed was able to sleep well during the day. HEART: Normal sinus rhythm LABS: Potassium today has been more or less the same as yesterday 3.3 from 3.4. Previous to the other potassium was from 2.6 to 2.7. Blood sugars 155, AST and ALT is still elevated although the AST is declining. Serology showed that the influenza A antibody titer is 1:128 and B 1:32, IgG CMV is greater than 10, IGM is less than 30, Dinora-Arredondo IgG is less than 9, Dinora-Arredondo Nuclear antigen 232 markedly elevated. CONDITION: Improved. MTDD
[2016-11-29] MEDS: COLACE PO SCH (08:20)
[2016-11-29] MEDS: NON-FORMULARY MEDICATION (Umeclidinium Brm/Vilanterol Tr [Anoro Ellipta 62.5-25 Mcg Inh] 1 IH SCH (08:20)
[2016-11-29] MEDS: COZAAR PO SCH (08:20)
[2016-11-29] MEDS: SOLU-CORTEF 100 MG IVP SCH ×2 (08:31→12:14)
[2016-11-29] MEDS: MAG-OX PO SCH (08:31)
--- NOTE | 2016-11-29 08:58 | PN ---
DATE OF VISIT: 11/26/16 SUBJECTIVE: The patient is alert and cheerful and now has a smile. She is not significantly dyspneic or tachypneic. She is now using nasal oxygen. The patient had a CO2 rise with 35% FiO2 via venturi. It was reduced to 28. VITAL SIGNS: Temperature 97.9, pulse 77, blood pressure 134/74, respiratory rate 21, oxygen saturation 91 at 2 liter per nasal. This patient was advised to take a breath and blow it out slowly and take three breaths in a row and rest. She should do this several times a day. LABS: Blood cultures negative after 5 days. PLAN: 1. This patient had received 7 days of Zithromax and will discontinued today. 2. The patient has not had any lose bowel movements. 3. Also we will try to decrease the frequency of the Solu-Cortef beginning tomorrow depending upon how she looks and how she feels as well as the labs reports and physical exam. The patient has improved remarkably from admission. KING
--- NOTE | 2016-11-29 09:57 | PN ---
DATE OF VISIT: 11/26/16 SUBJECTIVE: The patient today is alert and feeling better but not well. She does have audible breath sounds with rales and minimal wheezing more on the right. Her potassium is 3.1 and CO2 is 42, O2 Sat from 88-97%. The patient is getting 35% Venturi this will decreased to 28%. Respiratory rate is about 20. We will see what a decreased FiO2 will do to the CO2. General condition improved, general appearance improved. MTDD
--- NOTE | 2016-11-29 10:05 | PN ---
DATE OF VISIT: 11/27/16 SUBJECTIVE: The patient is alert and examined in the sitting posture in the chair. Her color is good and she is significantly dyspneic or tachypneic. Respiratory rate counted at 18 at 6:00 this morning. LUNG: Breath sounds are markedly diminished in both sides with minimal expiratory wheeze. HEART: Normal sinus rhythm Oxygen saturation at 10:00 in the morning was 95% at 2 liter and 93% at 2 liters at 2:00pm. LABS: Hgb and hct essentially the same, WBC still elevated secondary to the steroids most likely. CO2 is now decreased to 39 from 42. Sugars are slightly elevated 151, AST and ALT slightly elevated at 59 and 88 respectively and has been for the last 4 days. The patient had received 7-8 days of Zithromax and that was discontinued and also Rocephin. This patient had been receiving antibiotics prior to this admission. Solu-Cortef dose and frequency will be left in place. Once the patient has been improved remarkably then this will be converted to oral. She still has come burning in the mouth but no obvious whitish collections on tongue or the buccal mucosa. MTDD
--- NOTE | 2016-11-29 13:12 | PN ---
DATE OF VISIT: 11/28/16 SUBJECTIVE: The patient is alert and sitting and cheerful with smiles. Her daughter is combing her hair. VITAL SIGNS: Temperature 97.6, pules 77, blood pressure 145/66, respiratory rate 18 and oxygen saturation 93% at 2 liters. It was 96% before that on three occasions. LUNGS: Has better air exchange with still some expiratory wheeze in the upper posterior chest. PRESENT MEDICATIONS: DUONEB one vial Q 4 hours by nebulizer Lasix 20mg PO on empty stomach listed as PRN Cozaar 100mg daily Hydrochlorothiazide 12.5mg daily Protonix 40mg daily Anoro Ellipta one inhalation daily IV with potassium plus multivitamin Solu-Cortef 125mg Q 6 hours scheduled K-Dur 40 milliequivalent three times a day Nystatin oral susp one teaspoon four times a day, swish around the mouth either spit or swallow Colace 100mg twice a day Cardizem 60mg twice a day Cardizem 30mg twice a day Aspirin 81mg daily Aldactone 25mg daily Mucinex 1,200mg twice a day Lasix scheduled 40mg at 5am and 3pm No antibiotics onboard. Both were discontinued. Renal panel to see what the potassium and it may need to be discontinued. The IV would be discontinued also. Heparin lock will be inserted. OBJECTIVE: PLAN: MTDD
[2016-11-29 15:02] VITALS: BP 135/61; TEMP 98.7
--- NOTE | 2016-12-02 11:33 | PN ---
The patient was last seen on Consultation on 11/29/16 [facility]
--- NOTE | 2016-12-03 14:13 | HP ---
CHIEF COMPLAINT: Wheezing, increasing shortness of breath. HISTORY OF PRESENT ILLNESS: The patient had experienced cough, some nasal congestion and fullness of the head. She had consulted the wreath machine operator and was seen by midlevel. She was prescribed Levaquin and had finished the medication. The problem improved but reoccurred and was again given another round of the pain medication. The patient 's shortness of breath has increased remarkably the last two days. The patient presented to the emergency room and was transported by ambulance from home. The patient, while in the emergency room, received a Duoneb nebulization plus Solu-Medrol intravenously. The patient may have improved. The patient was admitted. When I first examined the patient, the patient is markedly dyspneic and tachypneic. She was wheezing both anteriorly and posteriorly, both inspiratory and expiratory. She was in a significant respiratory distress. PAST PERSONAL HISTORY: 1. Left breast carcinoma treated with segmental resection plus radiation 2. 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 Colonoscopy with polyp, no malignancy 4. Also had endoscopy 5. Cataract surgery 2010 6. Lung surgery 2010 7. Previous pneumonitis times three 8. Hypertension 9. GERD 10. Hysterectomy 1979 11. Chronic tobacco use, stopped in 1985 FAMILY HISTORY: No significant hereditary disease in the family. SOCIAL HISTORY: The patient is , retired from the [employer] [place], the [employer]. She stopped smoking in 1985. She is I, Para I. Denies any significant use of alcohol. MEDICATIONS: (Prior to admission) 1. Aspirin 81 mg daily 2. Protonix 40 mg daily 3. Losartan/Hydrochlorothiazide 100/12.5 daily 4. Amlodipine 5 mg daily 7. Guiafenisin 400 mg tablet daily 8. Meloxicam 15 mg tablet daily 9. Anoro Ellipta one inhalation daily 10. Lasix 20 mg daily 11. Albuterol Sulfate 0.083 3 cc vial for nebulizer q.4hr p.r.n. 12. Levaquin prescribed from the wreath machine operator midlevel provider ALLERGIES: IODOINE CONTRAST MEDIA, LATEX (TAPE) REVIEW OF SYSTEMS: CONSTITUTIONAL: The patient had no fever or chills but markedly weak from the dyspnea and tachypnea. TRAVEL JOURNALIST: No significant headaches. No loss of consciousness. No seizure disorder. VISUAL: Denies any double vision, blurred or transient loss of vision. AUDITORY: Hearing is adequate. No tinnitus. No pain. No drainage. RESPIRATORY: The patient is markedly dyspneic or tachypneic, respiratory distress. The patient is wheezing all over. CARDIOVASCULAR: Denies any chest pain or chest oppression. GASTROINTESTINAL: The patient has difficulty eating because of the significant shortness of breath. No abdomoinal pain. No diarrhea. GENITOURINARY: The patient has no pain or frequency of urination or urgency. INTEGUMENT: No rash or pruritus. MUSCULOSKELETAL: The patient does have some joint pains with ambulation. ENDOCRINE: Negative. HEMATOLOGIC: The patient has no history of prolonged bleeding. PSYCHIATRIC: Affect normal although the patient is having difficulty even to smile because of the difficulty of breathing. PHYSICAL EXAMINATION: GENERAL: 72-year-old female , who is admitted to the hospital because of increased respiratory distress in spite of two rounds of antibiotics. The patient was given Solu-Medrol in the emergency room plus nebulizer consisting of Duonebs. The patient's problem however persisted in spite of what the documentation in the emergency room mentioned that the patient's problem has resolved. HEAD: Unremarkable. Face is symmetrical and equal with no facial weakness. The patient denies any remarkable tenderness to palpation and/or pressure in the frontomaxillary sinus areas. EYES: Pupils equal/reactive to light about 3 mm in size. Conjunctivae not pale. Sclerae not icteric. MOUTH: Unremarkable. THROAT: No inflammation, tumors or exudate. NECK: No masses. No bruit. No tenderness. No rigidity. CHEST: Essentially symmetrical and equal with diminished expansion. LUNGS: Breath sounds are not audible. The patient has inspiratory plus expiratory wheezing. No rales appreciated probably because of limited air exchange. HEART: Audible, tachycardic. ABDOMEN: Protuberant, soft with no remarkable tenderness. No guarding. Bowel sounds active. No masses palpable. LOWER EXTREMITIES: Some ankle, leg edema. UPPER EXTREMITIES: Symmetrical and equal. ASSESSMENT: 1. ACUTE EXACERBATION OF CHRONIC BRONCHITIS, SEVERE 2. RESPIRATORY FAILURE SECONDARY TO #1 3. HISTORY OF COPD FOLLOWED BY CARDROOM MANAGER 4. HISTORY OF LEFT BREAST CARCINOMA TREATED WITH LUMPECTOMY AND RADIATION 5. HISTORY OF RIGHT UPPER LOBE CARCINOMA RESECTED 6. HISTORY OF HYPERTENSION 7. ELEVATED BMI MTDD
--- NOTE | 2016-12-07 14:12 | DS ---
HOSPITAL COURSE: The patient on admission had hypokalemia with 2.6 potassium. D -Dimer normal 0.93. Blood sugar 217. The patient was given FIO2 55% and the PO2 was 106. PCO2 37.3, pH 7.405. Oxygen saturation 98. The FIO2 was decreased to 35 and the arterial blood gases showed a PO2 of 72, PCO2 35.4, pH 7.397, oxygen saturation 94. The patient was continued on Solu-Cortef 250 mg every 6 hours IV. She also received Zithromax 500 mg daily and Rocephin 1 gram IV daily. The patient had gradually improved over time, but developed some gurgling rales. The patient was felt to have developed some congestive heart failure. The patient was given Lasix IV. Cardiology consultation also was requested. The patient's hypokalemia persisted in spite of increasing oral potassium supplementation of 40 mEq three times a day. She also was given 10 meq at the emergency room with 100 cc of saline and also on the floor. The serum potassium level, however, did not go below 2.6. The patient was maintained on 35 FIO2. The patient's general condition had improved after the IV Lasix. The AST and ALT has elevated to about 3 to 4 times above the upper limits of normal. The Influenza A antibody titers elevated as 1:128 and the B is 1:32. CMV IGG is greater than 10. IGM is less than 30. Nayeli Arredondo Virus IGG 9. Nayeli Arredondo nuclear antigen 232. Both of them are elevated. This was on 11/25/16 and the patient had improved from where she was. She continued to improve and the Zithromax was discontinued and later the Rocephin. The patient still had a Stallworth catheter in place. The patient is still receiving pulmonary nebulization for her problems. On 11/27/16, the patient's breath sounds are still markedly diminished with minimal expiratory wheeze mostly in the upper posterior chest. This patient was then discharged from acute care to [facility] since she is still receiving pulmonary treatment and her condition has not improved to the point that she can go home and be managed at home. She is still receiving also Solu-Cortef IV. The patient was discharged on 2016 to [facility]. FINAL DIAGNOSES: 1. ACUTE EXACERBATION OF CHRONIC BRONCHITIS, SEVERE 2. RESPIRATORY FAILURE, ACUTE. SECONDARY TO #1. 3. HISTORY OF CHRONIC OBSTRUCTIVE PULMONARY DISEASE 4. HISTORY OF RIGHT UPPER LOBE CARCINOMA, STATUS POST SURGERY 5. HISTORY OF LEFT BREAST CARCINOMA, STATUS POST LUMPECTOMY AND RADIATION 6. INFLUENZA A AND B TITER ELEVATION 7. NAYELI ARREDONDO VIRUS INFECTION 8. CMV EXPOSURE PROGNOSIS: Guarded. MTDD
== END 2016-11-29 16:53 | disposition swing bed (61) | DRG 190 ==
LOC: ED 14:57 → MEDSURG B 17:34
PROVIDERS: ADMIT General Practice; ATTEND General Practice
DX: J44.0 Chronic obstructive pulmonary disease with (acute) lower respiratory infection (principal); J96.00 Acute respiratory failure, unspecified whether with hypoxia or hypercapnia; E87.1 Hypo-osmolality and hyponatremia; B25.9 Cytomegaloviral disease, unspecified; J44.1 Chronic obstructive pulmonary disease with (acute) exacerbation; J20.9 Acute bronchitis, unspecified; B34.8 Other viral infections of unspecified site; R76.0 Raised antibody titer; E87.6 Hypokalemia; R79.89 Other specified abnormal findings of blood chemistry; I10 Essential (primary) hypertension; E66.9 Obesity, unspecified; Z87.891 Personal history of nicotine dependence; Z79.899 Other long term (current) drug therapy; Z85.118 Personal history of other malignant neoplasm of bronchus and lung; Z90.2 Acquired absence of lung [part of]
CPT/HCPCS: 36415; 80053; 80069; 81001; 82550; 82553; 82803; 83735; 83880; 84132; 84145; 84484; 85007; 85025; 85379; 86644; 86645; 86663; 86664; 86710; 87040; 87804; 93005; 93010; 94640; 96374; 99284

== ENCOUNTER 2016-11-29 17:02 | Inpatient (IN) ==
[2016-11-29] MEDS ORDERED: DUONEB IH SCH (18:00)
[2016-11-29] MEDS: DUONEB NEB ONE ×2 (18:55→22:35)
[2016-11-29 20:29] VITALS: BMI 32.2
[2016-11-29] MEDS ORDERED: K-DUR PO SCH (21:00)
[2016-11-29] MEDS ORDERED: CARDIZEM PO SCH ×2 (21:00)
[2016-11-29] MEDS: NYSTATIN ORAL SUSP PO SCH (21:33)
[2016-11-29] MEDS: MUCINEX PO SCH (21:33)
[2016-11-29] MEDS: COLACE PO SCH (21:34)
[2016-11-29] MEDS: CARDIZEM PO SCH ×2 (21:34)
[2016-11-29] MEDS: MAG-OX PO SCH (21:34)
[2016-11-29] MEDS: SOLU-CORTEF 100 MG IVP SCH (21:35)
[2016-11-30] MEDS: DUONEB NEB PRN ×2 (02:23→04:45)
[2016-11-30 05:27] LABS: HEMOGLOBIN 12.7 g/dl (12.0-16.0); MEAN CORPUSCULAR HGB CONC 32.6 (31.8-35.4); PLATELET COUNT 186 10^3/uL (140-440); RED BLOOD COUNT 4.24 10^6/ul (4.20-5.40); WHITE BLOOD COUNT 17.61 K/ul (4.6-10.2)
[2016-11-30 05:36] LABS: ANISOCYTOSIS NOT PRESENT (NOT PRESENT)
[2016-11-30] MEDS: NYSTATIN ORAL SUSP PO SCH ×4 (05:55→20:35)
[2016-11-30] MEDS: PROTONIX PO SCH (05:55)
[2016-11-30] MEDS: LASIX TAB PO SCH ×2 (05:55→14:18)
[2016-11-30] MEDS: SOLU-CORTEF 100 MG IVP SCH ×3 (05:56→20:35)
[2016-11-30 06:03] LABS: ALBUMIN 3.1 g/dL (3.4-5.0); ALBUMIN/GLOBULIN RATIO 1.15; ANION GAP 11.7; BILIRUBIN,TOTAL 0.79 mg/dL (0.00-1.20); BUN/CREATININE RATIO 20.27; CALCIUM 9.2 mg/dL (8.2-10.2); CREATININE 0.74 mg/dL (0.60-1.30); MAGNESIUM 2.2 mg/dL (1.7-2.2); POTASSIUM 3.7 mmol/L (3.5-5.10); TOTAL PROTEIN 5.8 g/dL (5.8-8.1)
[2016-11-30] MEDS: COZAAR PO SCH (08:47)
[2016-11-30] MEDS: CARDIZEM PO SCH ×4 (08:47→20:32)
[2016-11-30] MEDS: ASPIRIN CHEWABLE PO SCH (08:47)
[2016-11-30] MEDS: MUCINEX PO SCH ×2 (08:47→20:31)
[2016-11-30] MEDS: MAG-OX PO SCH ×2 (08:47→20:32)
[2016-11-30] MEDS: NON-FORMULARY MEDICATION (Umeclidinium Brm/Vilanterol Tr [Anoro Ellipta 62.5-25 Mcg Inh] 1 IH SCH (08:48)
[2016-11-30] MEDS: K-DUR PO SCH ×2 (08:48→20:31)
[2016-11-30] MEDS: ALDACTONE PO SCH (08:48)
[2016-11-30] MEDS: COLACE PO SCH ×2 (08:48→20:31)
[2016-11-30] MEDS ORDERED: PROTONIX PO SCH (09:00)
[2016-11-30] MEDS: DUONEB NEB SCH ×4 (10:02→22:45)
--- NOTE | 2016-11-30 11:44 | PN ---
DATE OF VISIT: 11/29/16 The patient is alert and sitting in a chair and feeling some better. She is still short of breath. LUNGS: The lungs still have diminished breath sounds, but now air is audible in both sides. She still has some expiratory wheezing with minimal. HEART: Audible and regular with good tones. The potassium is low in spite of the potassium replacement. Her Solu-Cortef was decreased believing that this might also be contributory to the lower potassium. The diuretic also was decreased from 40 to 20 twice a day. She is still on Aldactone. She was initiated on Magnesium Oxide 800 mg twice a day and see what would be the results of the potassium tomorrow. This patient should have a CBC, CMP and BNP tomorrow. MTDD
[2016-11-30 19:34] LABS: ALBUMIN 2.9 g/dL (3.4-5.0); ANION GAP 14.8; CALCIUM 8.5 mg/dL (8.2-10.2); CREATININE 0.8 mg/dL (0.60-1.30); PHOSPHORUS 2.8 mg/dL (2.8-4.1); POTASSIUM 3.8 mmol/L (3.5-5.10)
[2016-12-01] MEDS: DUONEB NEB SCH ×6 (01:50→22:55)
[2016-12-01] MEDS: SOLU-CORTEF 100 MG IVP SCH ×3 (04:12→20:14)
[2016-12-01] MEDS: LASIX TAB PO SCH ×2 (04:14→14:48)
[2016-12-01] MEDS: PROTONIX PO SCH (05:35)
[2016-12-01] MEDS: NYSTATIN ORAL SUSP PO SCH ×4 (05:35→20:13)
[2016-12-01 05:38] LABS: ALBUMIN 2.9 g/dL (3.4-5.0); ANION GAP 12.2; BUN/CREATININE RATIO 17.56; CALCIUM 8.7 mg/dL (8.2-10.2); CREATININE 0.74 mg/dL (0.60-1.30); PHOSPHORUS 3.2 mg/dL (2.8-4.1); POTASSIUM 4.2 mmol/L (3.5-5.10)
[2016-12-01] MEDS: COZAAR PO SCH (08:19)
[2016-12-01] MEDS: NON-FORMULARY MEDICATION (Umeclidinium Brm/Vilanterol Tr [Anoro Ellipta 62.5-25 Mcg Inh] 1 IH SCH (08:19)
[2016-12-01] MEDS: CARDIZEM PO SCH ×4 (08:20→20:12)
[2016-12-01] MEDS: K-DUR PO SCH ×2 (08:20→20:11)
[2016-12-01] MEDS: ASPIRIN CHEWABLE PO SCH (08:20)
[2016-12-01] MEDS: COLACE PO SCH ×2 (08:20→20:12)
[2016-12-01] MEDS: ALDACTONE PO SCH (08:20)
[2016-12-01] MEDS: MUCINEX PO SCH ×2 (08:21→20:12)
[2016-12-01] MEDS: MAG-OX PO SCH ×2 (08:21→20:13)
--- NOTE | 2016-12-01 12:37 | RS.OTINEVL ---
Subjective - Patient information Date of Evaluation: 12/01/16 Date of Arrival on Unit: 11/19/16 Admitted From:: Emergency Dept Usual Living Arrangement: With Spouse Living Arrangement Comments: Patient lives at home with . Patient did not use an assistive device to ambulate with at home. Patient was sleeping with 02 at night. Patient sleeps in a bed that elevates the head. Pt was able to drive. Home Environment: House, Stairs (few), Rail Medical History: COPD, Cancer Medical History Comments:: COPD, Breast cancer (lumpectomy), lung cancer, Bronchitis, Flu A&B, Ware, Latex Allergy LATEX ALLERGY?: Yes - Level of function Current Equipment Used at Home: oxygen, bipap Pain Assessment - Pain Pain Score: 0 Interventions - Objective Patient Orientation: Person, Place, Time, Situation Current Interventions: IV's, Oxygen, Stallworth Catheter Observation: Pt is sleeping in her reclining chair. Patient uses pillows to support her. Patient has bruising on bilateral forearms. Pt ambulates with 02 at 2 liters and RW approximately 30 feet. Interventions - ROM Right Upper Extremity AROM: WFL's Left Upper Extremity AROM: WFL's - Strength Right Upper Extremity Strength: Severe Weakness Left Upper Extremity Strength: Mild Weakness - Sensation Right Upper Extremity Sensation: Intact/Normal Left Upper Extremity Sensation: Intact/Normal Balance - Sitting Balance Static Sitting Balance: Good Dynamic Sitting Balance: Good - Standing Balance Static Standing Balance: Fair Dynamic Standing Balance: Fair - Comments Balance Assessment Comments: Standing balance is Fair with Rolling Walker. ADL Skills - Self Feeding Self Feeding: Independent - Grooming Grooming: Min Assist - Bathing Bathing UE: Min Assist Bathing LE: Max Assist - Dressing Dressing UE: Min Assist Dressing LE: Max Assist - Toilet Management Toileting Management: Min Assist Functional Mobility - Bed Mobility Rolling R/L: Min Assist Scooting: Min Assist Supine to Sit: Min Assist Sit to Supine: Mod Assist, 1 person assist - Transfers Sit to Stand: Min Assist Stand to Sit: CGA Stand Pivot Transfers: Min Assist - Ambulation Weight Bearing Status: FWB Assistive Device Used: Rolling Walker Orthotic/Prosthetic Device: No Assistance needed with Ambulation: Min Assist - Safety Awareness Safety Awareness: Good Additional Treatment Performed - Additional units charged ADL: 15 - Time with patient Total treatment time: 32 Activities Patient Interests:: Reading Books/Magazines, Watching Television, Puzzles/Games , Visiting/Socializing Patient Education Patient Education: Education of diagnosis, Home Exercise Program, Home Safety, Education of Plan of Care Teaching Recipient: Patient Teaching Methods: Discussion Assessment Problem List:: Decreased level of function, Requires training/education, Decreased safety/Risk of falls, Weakness Rehab Potential: Good Further Therapy Indicated?: Yes Short Term Goals - Goals GOAL 1: Patient to increase activity tolerance in standing to 15 min. w/ rest PRN Goal to be met by: 12/08/16 GOAL 2: Pt to increase BUE strength to 4/5 to increase I with ADLS. Goal to be met by: 12/08/16 GOAL 3: Pt to be CGA with dressing using AE PRN. Goal to be met by: 12/08/16 Assisted Goals GOAL 1: Pt to tolerate standing activity for 20-25 minutes w/rests PRN. Goal to be met by: 12/15/16 GOAL 2: Pt to increase BUE strength to 4+/5 to increase I of ADLS. Goal to be met by: 12/15/16 GOAL 3: Pt to be independent with home exercise program Goal to be met by: 12/15/16 Plan Plan of Care: Therapeutic EX, Neuromuscular Re-Educ, Therapeutic Activity, Self- Care/Home Management Frequency of Treatment: 1-2 X day, as tolerated Duration of Treatment: 2 Weeks Anticipated Discharge Destination: Home
[2016-12-01 15:06] LABS: BASOPHILS # (AUTO) 0.1 K/uL (0-0.2); BASOPHILS % (AUTO) 0.4 % (0.0-3.0); EOSINOPHILS % (AUTO) 0.1 % (0.0-7.0); HEMATOCRIT 38.5 % (37.0-47.0); HEMOGLOBIN 12.4 g/dl (12.0-16.0); IMMATURE GRANULOCYTE % (AUTO) 4.1 % (0.0-5.0); LYMPHOCYTES # (AUTO) 1.2 K/uL (0.60-3.4); LYMPHOCYTES % (AUTO) 7.4 (10.0-50.0); MEAN CORPUSCULAR HEMOGLOBIN 30.4 pg (27.0-31.0); MEAN CORPUSCULAR HGB CONC 32.2 (31.8-35.4); MEAN CORPUSCULAR VOLUME 94.4 fl (81.0-99.0); MONOCYTES # (AUTO) 1.1 K/uL (0.4-2.0); MONOCYTES % (AUTO) 6.7 (0-10); NEUTROPHILS # (AUTO) 13.5 K/ul (2.0-6.9); NEUTROPHILS % (AUTO) 81.3; PLATELET COUNT 177 10^3/uL (140-440); RED BLOOD COUNT 4.08 10^6/ul (4.20-5.40); WHITE BLOOD COUNT 16.65 K/ul (4.6-10.2)
[2016-12-01 15:10] LABS: BILIRUBIN,URINE Negative (NEGATIVE); KETONES,URINE Negative (NEGATIVE); LEUKOCYTE ESTERASE ,URINE 1+ (NEGATIVE); NITRITE,URINE Negative (NEGATIVE); PROTEIN,URINE Negative (NEGATIVE); URINE, BLOOD 3+ (NEGATIVE)
[2016-12-01 15:12] LABS: ADD URINE MICROSCOPIC YES
[2016-12-01 15:23] LABS: ALBUMIN 3.1 g/dL (3.4-5.0); ALBUMIN/GLOBULIN RATIO 1.15; ANION GAP 17.2; BILIRUBIN,TOTAL 0.8 mg/dL (0.00-1.20); BUN/CREATININE RATIO 18.66; CALCIUM 8.7 mg/dL (8.2-10.2); CREATININE 0.75 mg/dL (0.60-1.30); POTASSIUM 4.2 mmol/L (3.5-5.10); TOTAL PROTEIN 5.8 g/dL (5.8-8.1)
[2016-12-02] MEDS: DUONEB NEB SCH ×6 (02:28→21:33)
[2016-12-02] MEDS: LASIX TAB PO SCH ×2 (05:34→15:55)
[2016-12-02] MEDS: PROTONIX PO SCH (05:34)
[2016-12-02] MEDS: SOLU-CORTEF 100 MG IVP SCH ×2 (05:35→13:46)
[2016-12-02] MEDS: NYSTATIN ORAL SUSP PO SCH ×4 (05:35→20:23)
[2016-12-02] MEDS: MUCINEX PO SCH ×2 (08:44→20:23)
[2016-12-02] MEDS: ALDACTONE PO SCH (08:44)
[2016-12-02] MEDS: CARDIZEM PO SCH ×4 (08:44→20:23)
[2016-12-02] MEDS: COLACE PO SCH ×2 (08:44→20:23)
[2016-12-02] MEDS: NON-FORMULARY MEDICATION (Umeclidinium Brm/Vilanterol Tr [Anoro Ellipta 62.5-25 Mcg Inh] 1 IH SCH (08:44)
[2016-12-02] MEDS: COZAAR PO SCH (08:44)
[2016-12-02] MEDS: ASPIRIN CHEWABLE PO SCH (08:45)
[2016-12-02 11:11] LABS: ALBUMIN 3.1 g/dL (3.4-5.0); ALBUMIN/GLOBULIN RATIO 1.19; ANION GAP 14.5; BILIRUBIN,DIRECT 0.28 mg/dL (0.00-0.30); BILIRUBIN,TOTAL 0.58 mg/dL (0.00-1.20); BUN/CREATININE RATIO 18.66; CALCIUM 8.4 mg/dL (8.2-10.2); CREATININE 0.75 mg/dL (0.60-1.30); POTASSIUM 4.5 mmol/L (3.5-5.10); TOTAL PROTEIN 5.7 g/dL (5.8-8.1)
--- NOTE | 2016-12-02 15:09 | PN ---
DATE OF VISIT: 12/01/16 The patient is alert and feeling better. The Stallworth catheter was removed after it had bladder training for two days. The patient claimed to be feeling better , although not back to where she was prior to the illness. LUNGS: Has audible breath sounds with minimal expiratory wheeze. No obvious rales head. HEART: Normal sinus rhythm and no chest pain. VITAL SIGNS: 12/01/2016 at 5:40 p.m. showed a temperature of 97.4, pulse 62, blood pressure 124/74, respiratory rate 21, oxygen saturation 95 at room air. LABS: The serum potassium is 4.2 now normal. The sodium and chlorides are slightly lower. Fasting blood sugar 132. AST lower than previous 55 from 65. 111 ALT from 116. Urinalysis 3+ blood, probably secondary to the catheter. The urine RBC microscopic 10-20, WBC 2-5, 1+ leukocyte esterase, nitrite negative. Epithelial cells not present. This is a catheterized specimen. Her appetite is improving and is eating anywhere between 50 to 100% now. ASSESSMENT: Improved. MTDD
[2016-12-02] MEDS: PREDNISONE PO SCH (17:06)
[2016-12-03] MEDS: DUONEB NEB SCH ×6 (02:07→22:19)
[2016-12-03] MEDS: LASIX TAB PO SCH ×2 (05:30→14:19)
[2016-12-03] MEDS: PROTONIX PO SCH (05:31)
[2016-12-03] MEDS: NYSTATIN ORAL SUSP PO SCH ×4 (05:31→20:10)
[2016-12-03 06:30] LABS: ALBUMIN 3.2 g/dL (3.4-5.0); BILIRUBIN,DIRECT 0.3 mg/dL (0.00-0.30); BILIRUBIN,TOTAL 0.63 mg/dL (0.00-1.20); TOTAL PROTEIN 5.9 g/dL (5.8-8.1)
[2016-12-03 06:33] LABS: ALBUMIN 3.1 g/dL (3.4-5.0); ANION GAP 11.2; BUN/CREATININE RATIO 21.91; CALCIUM 9.1 mg/dL (8.2-10.2); CREATININE 0.73 mg/dL (0.60-1.30); PHOSPHORUS 3.9 mg/dL (2.8-4.1); POTASSIUM 4.2 mmol/L (3.5-5.10)
[2016-12-03] MEDS: CARDIZEM PO SCH ×4 (08:33→20:09)
[2016-12-03] MEDS: COZAAR PO SCH (08:33)
[2016-12-03] MEDS: ALDACTONE PO SCH (08:33)
[2016-12-03] MEDS: MUCINEX PO SCH ×2 (08:34→20:09)
[2016-12-03] MEDS: PREDNISONE PO SCH ×3 (08:34→16:32)
[2016-12-03] MEDS: ASPIRIN CHEWABLE PO SCH (08:34)
[2016-12-03] MEDS: COLACE PO SCH ×2 (08:34→20:10)
[2016-12-03] MEDS: NON-FORMULARY MEDICATION (Umeclidinium Brm/Vilanterol Tr [Anoro Ellipta 62.5-25 Mcg Inh] 1 IH SCH (08:34)
[2016-12-03] MEDS: NYSTOP POWDER TP SCH ×3 (11:10→20:15)
--- NOTE | 2016-12-03 14:11 | PN ---
DATE OF VISIT: 12/02/16 SUBJECTIVE: The patient is a 71 year old female who was admitted to the hospital because of acute respiratory failure, which is improving. She feels much better today. VITAL SIGNS: early this morning Blood pressure 149/67, temperature 97.9, pulse 91, respiratory 20 and oxygen saturation 93% at 2 liters. Subsequently to that the oxygen saturation was at 94 and 94. She claims that she is feeling better. She had been able to walk and tolerated that and also had washed her face in the bathroom. This she was not able to do two to three days ago. LUNGS: Breath sounds heard in both sides with no expiratory wheeze. There is an expiratory course breath sounds in both sides. HEART: Normal sinus rhythm She is much cheerful today and again feeling much better. Her electrolytes are close to normal. Sodium 134, chloride 94, potassium 4.5. This patient has a fairly low potassium for some time probably secondary to the steroid medication plus the diarrhetic. The BNP has been back to normal. The Solu-Cortef is continued and replaced with Prednisone 10mg three times a day. The patient denies any burning sensation on urination. This Stallworth Catheter was removed yesterday. ASSESSMENT: General condition much improved. Pulmonary condition improved. MTDD
[2016-12-03] MEDS: LOVENOX SUBCUT SCH (14:20)
[2016-12-03 14:39] LABS: ALBUMIN 3.2 g/dL (3.4-5.0); ALBUMIN/GLOBULIN RATIO 0.97; ANION GAP 12.6; BILIRUBIN,TOTAL 0.67 mg/dL (0.00-1.20); BUN/CREATININE RATIO 21.42; CREATININE 0.84 mg/dL (0.60-1.30); POTASSIUM 4.6 mmol/L (3.5-5.10); TOTAL PROTEIN 6.5 g/dL (5.8-8.1)
--- NOTE | 2016-12-03 17:25 | US ---
EXAM: Bilateral lower extremity venous Doppler. HISTORY: Bilateral lower extremity swelling. TECHNIQUE: Real time duplex ultrasound is performed on the common femoral, greater saphenous, profu nda femoris, superficial femoral, popliteal, peroneal, anterior tibial, and posterior tibial veins. COMPARISON: None FINDINGS: The veins are free of intraluminal filling defects. The veins are compressible and show increased flow with augmentation. Normal variability with respiration is noted. IMPRESSION: Negative exam for bilateral lower extremity DVT.
[2016-12-04] MEDS: DUONEB NEB SCH ×4 (01:45→13:51)
[2016-12-04] MEDS: LASIX TAB PO SCH ×2 (05:50→15:55)
[2016-12-04] MEDS: PROTONIX PO SCH (05:50)
[2016-12-04] MEDS: NYSTATIN ORAL SUSP PO SCH ×3 (05:51→17:30)
[2016-12-04 05:54] LABS: BASOPHILS # (AUTO) 0.1 K/uL (0-0.2); BASOPHILS % (AUTO) 0.4 % (0.0-3.0); EOSINOPHILS # (AUTO) 0.1 K/ul (0.0-0.7); EOSINOPHILS % (AUTO) 0.4 % (0.0-7.0); HEMATOCRIT 38.2 % (37.0-47.0); HEMOGLOBIN 12.6 g/dl (12.0-16.0); IMMATURE GRANULOCYTE % (AUTO) 4.2 % (0.0-5.0); LYMPHOCYTES # (AUTO) 0.9 K/uL (0.60-3.4); LYMPHOCYTES % (AUTO) 7.4 (10.0-50.0); MEAN CORPUSCULAR HEMOGLOBIN 30.4 pg (27.0-31.0); NEUTROPHILS # (AUTO) 9.5 K/ul (2.0-6.9); NEUTROPHILS % (AUTO) 79.6; PLATELET COUNT 173 10^3/uL (140-440); RED BLOOD COUNT 4.15 10^6/ul (4.20-5.40); WHITE BLOOD COUNT 11.96 K/ul (4.6-10.2)
[2016-12-04 06:26] VITALS: BP 139/70; TEMP 98
[2016-12-04] MEDS: PREDNISONE PO SCH ×3 (08:55→17:30)
[2016-12-04] MEDS: ASPIRIN CHEWABLE PO SCH (09:30)
[2016-12-04] MEDS: CARDIZEM PO SCH ×2 (09:30→09:31)
[2016-12-04] MEDS: MUCINEX PO SCH (09:30)
[2016-12-04] MEDS: ALDACTONE PO SCH (09:30)
[2016-12-04] MEDS: NYSTOP POWDER TP SCH ×2 (09:31→16:11)
[2016-12-04] MEDS: LOVENOX SUBCUT SCH (09:31)
[2016-12-04] MEDS: COZAAR PO SCH (09:31)
[2016-12-04] MEDS: COLACE PO SCH (09:31)
[2016-12-04] MEDS: NON-FORMULARY MEDICATION (Umeclidinium Brm/Vilanterol Tr [Anoro Ellipta 62.5-25 Mcg Inh] 1 IH SCH (10:20)
--- NOTE | 2016-12-04 10:37 | CT ---
EXAM: CT scan of the chest without contrast HISTORY: Shortness of breath followup TECHNIQUE: Helical imaging of the chest was performed without contrast. 5 mm thin axial images and coronal and sagittal reconstructions were provided for interpretation. Comparison 11/22/2016 CT scan of the chest. FINDINGS: Emphysematous changes are again seen throughout the lungs. No definite infiltrates are s een. There is no consolidation. The heart is normal size. No mediastinal masses are seen. Bilate ral breast implants are seen. No lytic or blastic lesions are seen within the osseous structures. T here has been previous cholecystectomy. IMPRESSION: Pulmonary emphysema. No definite infiltrates are seen.
[2016-12-04 15:25] LABS: BILIRUBIN,URINE Negative (NEGATIVE); KETONES,URINE Negative (NEGATIVE); LEUKOCYTE ESTERASE ,URINE 1+ (NEGATIVE); NITRITE,URINE Negative (NEGATIVE); PROTEIN,URINE Negative (NEGATIVE); URINE, BLOOD Trace-intact (NEGATIVE)
[2016-12-04 15:28] LABS: ADD URINE MICROSCOPIC YES
[2016-12-04 15:53] LABS: ALBUMIN 3.3 g/dL (3.4-5.0); ALBUMIN/GLOBULIN RATIO 1.14; ANION GAP 18.7; BILIRUBIN,TOTAL 0.6 mg/dL (0.00-1.20); BUN/CREATININE RATIO 24.67; CALCIUM 9.2 mg/dL (8.2-10.2); CREATININE 0.77 mg/dL (0.60-1.30); POTASSIUM 4.7 mmol/L (3.5-5.10); TOTAL PROTEIN 6.2 g/dL (5.8-8.1)
--- NOTE | 2017-01-17 08:18 | PN ---
DATE OF VISIT: 11/30/16 SUBJECTIVE: The patient is alert and feeling some better. VITALS: Temperature 97.3, pulse 85, blood pressure 133/59, respiratory 25 and oxygen saturation 95 at 2 liters. General appearance is good and she doesn't appear to be tachypneic at rest. No dyspneic. LUNGS: diminished breath sounds but air exchange is now audible. Still has some expiratory wheezing. HEART: Audible and normal sinus rhythm ABDOMEN: No remarkable tenderness. EXTREMITIES: Calf muscle has no tenderness CONDITION: Stable and improved. MTDD
--- NOTE | 2017-01-19 08:55 | DS ---
PATIENT IDENTIFICATION: 71 year old female was admitted from acute care to [facility] after she had improved, but not well. She was discharged 11/29/16 from acute care and then admitted on the same day to [facility]. HOSPITAL COURSE: She was feeling better, but still short of breath with minimal exertion. LUNGS: Still has markedly diminished breath sounds, although air exchange is now audible in both sides. She still has expiratory wheezing, although much less. HEART: Normal sinus rhythm. The potassium was below normal and the Lasix was reduced from 40 mg twice a day to 20 mg twice a day. She is also on Aldactone. The patient had leg cramps and was treated with 800 mg of Magnesium Oxide twice a day. The patient had some swelling on both lower extremities and Doppler studies was done showing no DVT's. She also had a chest CT on 12/04/16. The chest CT indicated emphysematous changes throughout the lungs. No definite infiltrate. No mediastinal masses. No lytic or blastic lesions noted. The patient's temperature since 11/29/2016 until 12/04/2016 was normal. The pulse had fluctuated from 62 to as high as 91. Blood pressure remained normal with some slight fluctuation to slightly above normal, but not clinically significant. Respiratory rate was between 18 to 20. Oxygen saturation was predominately 90 at 2 liters of oxygen. This was increased to 2.5 and then 3 and still the oxygen saturation was 90. Oxygen saturation did improve to 96 at 3 liters on 11/30/2016 and the oxygen was then reduced to liters per minute. The oxygen saturation has improved to 95 with 2 liters. The patient, at the time of discharge, was alert and feeling much better and no significant tachypnea, nor dyspnea at rest. This patient is now able to move around the room. VITAL SIGNS: Her temperature was 98, pulse 82, blood pressure 139/70, respiratory rate 20, oxygen saturation 97 at room air. LUNGS: Has better air exchange and no wheezing. PLAN: 1. The patient on discharge was given the new prescription for Albuterol 0.083 % om 3 cc's with use of nebulizer, Lotrisone cream 45 grams to be applied to the red areas twice daily, Diltiazem 60 mg every 12 hours, Lasix 20 mg twice a day, Mucinex 1200 mg twice a day, Prednisone 5 mg twice daily with meals, Aldactone 25 mg daily. 2. Resume aspirin 81 mg daily and Losartan Hydrochlorothiazide 100/12.5 mg daily. 3. The patient was given instructions as to diet, as well as activity and medications to be taken. 4. The patient is to see me on 12/10/2016 at the office and before if there is any concerns. FINAL DIAGNOSES: 1. CHRONIC OBSTRUCTIVE PULMONARY DISEASE WITH ACUTE EXACERBATION, SEVERE 2. RESPIRATORY FAILURE SECONDARY TO #1 3. HISTORY OF LEFT BREAST CARCINOMA TREATED WITH LUMPECTOMY AND RADIATION 4. HISTORY OF RIGHT UPPER LOBE CARCINOMA, RESECTED 5. HISTORY OF HYPERTENSION 6. ELEVATED BMI MTDD
--- NOTE | 2017-02-15 12:20 | PN ---
DATE OF VISIT: 12/03/2016 The patient, today, is alert and feeling better and smiling. She does not appear to be dyspneic, nor tachypneic. VITAL SIGNS: Respiratory rate is 18. Temperature 97.7, pulse 64, blood pressure 144/68. LUNGS: Still has diminished breath sounds, but air exchange is audible on both sides, which was not previously on admission. No rales and very minimal location of expiratory wheeze. Doppler studies of both lower extremities showed a negative studies for DVT. CONDITION: Markedly improved. MTDD
== END 2016-12-04 18:04 | disposition home or self-care (01) | DRG 190 ==
LOC: MEDSURG B 17:02
PROVIDERS: ADMIT General Practice; ATTEND General Practice
DX: J44.1 Chronic obstructive pulmonary disease with (acute) exacerbation (principal); J96.90 Respiratory failure, unspecified, unspecified whether with hypoxia or hypercapnia; I10 Essential (primary) hypertension; R60.0 Localized edema; R25.2 Cramp and spasm; Z85.3 Personal history of malignant neoplasm of breast; Z85.118 Personal history of other malignant neoplasm of bronchus and lung; Z79.899 Other long term (current) drug therapy
CPT/HCPCS: 36415; 80053; 80069; 80076; 81001; 82248; 83525; 83735; 83880; 84100; 85007; 85025; 87086; 94640; 97802; 99308; 99316

== ENCOUNTER 2016-12-10 10:06 | Outpatient (CLI) ==
[2013-04-25 07:59] VITALS: TEMP 98
[2013-04-25 09:19] VITALS: BP 127/47
[2016-12-10 10:43] LABS: BILIRUBIN,URINE Negative (NEGATIVE); KETONES,URINE 1+ (NEGATIVE); LEUKOCYTE ESTERASE ,URINE 2+ (NEGATIVE); NITRITE,URINE Negative (NEGATIVE); PROTEIN,URINE Negative (NEGATIVE); URINE, BLOOD 1+ (NEGATIVE)
[2016-12-10 10:45] LABS: BASOPHILS % (AUTO) 0.5 % (0.0-3.0); EOSINOPHILS # (AUTO) 0.1 K/ul (0.0-0.7); EOSINOPHILS % (AUTO) 1.1 % (0.0-7.0); HEMATOCRIT 36.1 % (37.0-47.0); HEMOGLOBIN 12.5 g/dl (12.0-16.0); IMMATURE GRANULOCYTE % (AUTO) 1.8 % (0.0-5.0); LYMPHOCYTES # (AUTO) 0.9 K/uL (0.60-3.4); LYMPHOCYTES % (AUTO) 13.7 (10.0-50.0); MEAN CORPUSCULAR HEMOGLOBIN 30.7 pg (27.0-31.0); MEAN CORPUSCULAR HGB CONC 34.6 (31.8-35.4); MEAN CORPUSCULAR VOLUME 88.7 fl (81.0-99.0); MONOCYTES # (AUTO) 0.7 K/uL (0.4-2.0); MONOCYTES % (AUTO) 10.1 (0-10); NEUTROPHILS # (AUTO) 4.8 K/ul (2.0-6.9); NEUTROPHILS % (AUTO) 72.8; PLATELET COUNT 146 10^3/uL (140-440); RED BLOOD COUNT 4.07 10^6/ul (4.20-5.40); WHITE BLOOD COUNT 6.52 K/ul (4.6-10.2)
[2016-12-10 10:55] LABS: ADD URINE MICROSCOPIC YES
[2016-12-10 10:56] LABS: BACTERIA,URINE 1+ (NOT PRESENT)
[2016-12-10 11:07] LABS: ALBUMIN 3.3 g/dL (3.4-5.0); ANION GAP 13.3; BUN/CREATININE RATIO 25.33; CALCIUM 9.3 mg/dL (8.2-10.2); CHOL/HDL RATIO 2.8 (4.5-5.5); CREATININE 0.75 mg/dL (0.60-1.30); POTASSIUM 4.3 mmol/L (3.5-5.10); TOTAL PROTEIN 6.6 g/dL (5.8-8.1)
== END 2016-12-10 10:07 | disposition home or self-care (01) ==
LOC: LAB 10:06
PROVIDERS: ATTEND General Practice
DX: I10 Essential (primary) hypertension (principal); E88.81 Metabolic syndrome and other insulin resistance; Z68.32 Body mass index [BMI] 32.0-32.9, adult; Z79.899 Other long term (current) drug therapy
CPT/HCPCS: 36415; 80053; 80061; 81001; 83525; 85025; 87086

== ENCOUNTER 2016-12-24 15:46 | Outpatient (CLI) ==
[2013-04-25 07:59] VITALS: TEMP 98
[2013-04-25 09:19] VITALS: BP 127/47
[2016-12-24 16:51] LABS: ALBUMIN 3.4 g/dL (3.4-5.0); ANION GAP 14.1; BUN/CREATININE RATIO 15.66; CALCIUM 9.8 mg/dL (8.2-10.2); CREATININE 0.83 mg/dL (0.60-1.30); PHOSPHORUS 3.6 mg/dL (2.8-4.1); POTASSIUM 4.1 mmol/L (3.5-5.10)
== END 2016-12-24 15:47 | disposition home or self-care (01) ==
LOC: LAB 15:46
PROVIDERS: ATTEND General Practice
DX: I10 Essential (primary) hypertension (principal); Z79.899 Other long term (current) drug therapy
CPT/HCPCS: 36415; 80069

== ENCOUNTER 2017-01-04 12:16 | Outpatient (RCR) ==
[2017-01-18 13:30] VITALS: BP 110/52
== END 2017-01-18 ==
LOC: PUL.REHAB 12:16
PROVIDERS: ATTEND General Practice
DX: J44.1 Chronic obstructive pulmonary disease with (acute) exacerbation (principal); Z85.118 Personal history of other malignant neoplasm of bronchus and lung; R05 Cough; R06.02 Shortness of breath

== ENCOUNTER 2017-01-04 14:31 | Outpatient (CLI) ==
[2013-04-25 07:59] VITALS: TEMP 98
--- NOTE | 2017-01-04 14:54 | DI ---
EXAM: Chest two view, frontal and lateral views. HISTORY: Cough. COMPARISON: 12/04/2016, 11/19/2016, 04/29/2014. FINDINGS: The heart size is normal. There is no pulmonary vascular congestion. Staple line in the right upper lung with adjacent scarring again noted. Otherwise, the lungs are clear. No pleural e ffusion or pneumothorax is seen. No acute osseous abnormality identified. Peripherally calcified l eft breast implant noted. Atherosclerotic calcifications present in the aorta. Clips seen in the u pper abdomen. Since the prior study, there has been no significant interval change. IMPRESSION: No acute cardiopulmonary process.
== END 2017-01-04 14:32 | disposition home or self-care (01) ==
LOC: RAD 14:31
PROVIDERS: ATTEND General Practice
DX: R05 Cough (principal); R06.02 Shortness of breath; J44.1 Chronic obstructive pulmonary disease with (acute) exacerbation

== ENCOUNTER 2017-01-19 09:53 | Outpatient (RCR) ==
[2017-01-04 14:36] VITALS: BMI 32.2
[2017-02-17 13:36] VITALS: BP 128/62
== END 2017-02-18 ==
LOC: PUL.REHAB 09:53
PROVIDERS: ATTEND General Practice
DX: J44.1 Chronic obstructive pulmonary disease with (acute) exacerbation (principal); Z85.118 Personal history of other malignant neoplasm of bronchus and lung

== ENCOUNTER 2017-02-10 11:46 | Outpatient (CLI) ==
[2013-04-25 07:59] VITALS: TEMP 98
[2017-01-04 14:36] VITALS: BMI 32.2
[2017-02-10 13:54] LABS: ALBUMIN 3.9 g/dL (3.4-5.0); BUN/CREATININE RATIO 14.11; CALCIUM 9.8 mg/dL (8.2-10.2); CREATININE 0.85 mg/dL (0.60-1.30); PHOSPHORUS 3.1 mg/dL (2.8-4.1)
[2017-02-10 15:03] LABS: ERYTHROCYTE SEDIMENTATION RATE 41 mm/hr (0-20); ESR INTERNAL QC INTERNAL QC VALID
== END 2017-02-10 11:47 | disposition home or self-care (01) ==
LOC: LAB 11:46
PROVIDERS: ATTEND General Practice
DX: R51 Headache (principal); I10 Essential (primary) hypertension; J44.1 Chronic obstructive pulmonary disease with (acute) exacerbation; Z85.118 Personal history of other malignant neoplasm of bronchus and lung
CPT/HCPCS: 36415; 80069; 85651

== ENCOUNTER 2017-02-19 00:01 | Outpatient (RCR) ==
[2017-01-04 14:36] VITALS: BMI 32.2
[2017-03-17 14:07] VITALS: BP 118/52
== END 2017-03-20 ==
LOC: PUL.REHAB 00:01
PROVIDERS: ATTEND General Practice
DX: J44.1 Chronic obstructive pulmonary disease with (acute) exacerbation (principal); Z85.118 Personal history of other malignant neoplasm of bronchus and lung

== ENCOUNTER 2017-03-21 09:41 | Outpatient (RCR) ==
[2017-01-04 14:36] VITALS: BMI 32.2
[2017-04-19 13:06] VITALS: BP 120/62
== END 2017-04-20 ==
LOC: PUL.REHAB 09:41
PROVIDERS: ATTEND General Practice
DX: J44.1 Chronic obstructive pulmonary disease with (acute) exacerbation (principal); Z85.118 Personal history of other malignant neoplasm of bronchus and lung

== ENCOUNTER 2017-04-21 07:23 | Outpatient (RCR) ==
[2017-01-04 14:36] VITALS: BMI 32.2
[2017-05-12 13:25] VITALS: BP 132/64
== END 2017-05-20 ==
LOC: PUL.REHAB 07:23
PROVIDERS: ATTEND General Practice
DX: J44.1 Chronic obstructive pulmonary disease with (acute) exacerbation (principal); Z85.118 Personal history of other malignant neoplasm of bronchus and lung

== ENCOUNTER 2017-05-03 07:35 | Outpatient (CLI) ==
[2013-04-25 07:59] VITALS: TEMP 98
[2017-01-04 14:36] VITALS: BMI 32.2
[2017-05-03 07:51] LABS: BASOPHILS # (AUTO) 0.1 K/uL (0-0.2); BASOPHILS % (AUTO) 0.9 % (0.0-3.0); EOSINOPHILS # (AUTO) 0.1 K/ul (0.0-0.7); EOSINOPHILS % (AUTO) 1.6 % (0.0-7.0); HEMATOCRIT 35.1 % (37.0-47.0); IMMATURE GRANULOCYTE % (AUTO) 1.1 % (0.0-5.0); LYMPHOCYTES # (AUTO) 1.2 K/uL (0.60-3.4); LYMPHOCYTES % (AUTO) 22.2 (10.0-50.0); MEAN CORPUSCULAR HEMOGLOBIN 29.9 pg (27.0-31.0); MEAN CORPUSCULAR HGB CONC 34.2 (31.8-35.4); MEAN CORPUSCULAR VOLUME 87.5 fl (81.0-99.0); MONOCYTES # (AUTO) 0.7 K/uL (0.4-2.0); MONOCYTES % (AUTO) 13.4 (0-10); NEUTROPHILS # (AUTO) 3.4 K/ul (2.0-6.9); NEUTROPHILS % (AUTO) 60.8; PLATELET COUNT 232 10^3/uL (140-440); RED BLOOD COUNT 4.01 10^6/ul (4.20-5.40); WHITE BLOOD COUNT 5.53 K/ul (4.6-10.2)
[2017-05-03 07:53] LABS: BILIRUBIN,URINE Negative (NEGATIVE); KETONES,URINE Negative (NEGATIVE); LEUKOCYTE ESTERASE ,URINE 1+ (NEGATIVE); NITRITE,URINE Negative (NEGATIVE); PROTEIN,URINE Negative (NEGATIVE); URINE, BLOOD Negative (NEGATIVE)
[2017-05-03 07:57] LABS: ADD URINE MICROSCOPIC YES
[2017-05-03 08:12] LABS: ALBUMIN 3.6 g/dL (3.4-5.0); ALBUMIN/GLOBULIN RATIO 1.06; ANION GAP 12.5; BILIRUBIN,TOTAL 0.58 mg/dL (0.00-1.20); BUN/CREATININE RATIO 11.62; CALCIUM 9.9 mg/dL (8.2-10.2); CHOL/HDL RATIO 2.3 (4.5-5.5); CREATININE 0.86 mg/dL (0.60-1.30); POTASSIUM 4.5 mmol/L (3.5-5.10)
== END 2017-05-03 07:36 | disposition home or self-care (01) ==
LOC: LAB 07:35
PROVIDERS: ATTEND General Practice
DX: E88.81 Metabolic syndrome and other insulin resistance (principal); I10 Essential (primary) hypertension; J44.9 Chronic obstructive pulmonary disease, unspecified; Z79.899 Other long term (current) drug therapy
CPT/HCPCS: 36415; 80053; 80061; 81001; 85025

== ENCOUNTER 2017-06-10 08:33 | Outpatient (CLI) ==
[2013-04-25 07:59] VITALS: TEMP 98
[2017-01-04 14:36] VITALS: BMI 32.2
== END 2017-06-10 08:34 | disposition home or self-care (01) ==
LOC: LAB 08:33
PROVIDERS: ATTEND General Practice
DX: L65.9 Nonscarring hair loss, unspecified (principal)
CPT/HCPCS: 36415; 84443

== ENCOUNTER 2017-06-16 10:42 | Outpatient (CLI) ==
[2013-04-25 07:59] VITALS: TEMP 98
[2017-01-04 14:36] VITALS: BMI 32.2
[2017-06-16 11:09] LABS: BASOPHILS % (AUTO) 0.5 % (0.0-3.0); EOSINOPHILS # (AUTO) 0.2 K/ul (0.0-0.7); EOSINOPHILS % (AUTO) 1.8 % (0.0-7.0); HEMOGLOBIN 11.1 g/dl (12.0-16.0); IMMATURE GRANULOCYTE % (AUTO) 1.5 % (0.0-5.0); LYMPHOCYTES # (AUTO) 1.8 K/uL (0.60-3.4); LYMPHOCYTES % (AUTO) 21.6 (10.0-50.0); MEAN CORPUSCULAR HGB CONC 33.6 (31.8-35.4); MEAN CORPUSCULAR VOLUME 92.2 fl (81.0-99.0); MONOCYTES # (AUTO) 0.8 K/uL (0.4-2.0); MONOCYTES % (AUTO) 9.3 (0-10); NEUTROPHILS # (AUTO) 5.6 K/ul (2.0-6.9); NEUTROPHILS % (AUTO) 65.3; PLATELET COUNT 220 10^3/uL (140-440); RED BLOOD COUNT 3.58 10^6/ul (4.20-5.40); WHITE BLOOD COUNT 8.52 K/ul (4.6-10.2)
--- NOTE | 2017-06-16 11:44 | CT ---
EXAM: CT of the chest without contrast History: Cough. Comparison: Chest radiograph 01/04/2017, chest CT 12/04/2016 Technique: Multiplanar CT images through the thorax were obtained without the administration of IV contrast Findings: Bilateral breast implants with calcified regions again noted. Heart size is normal. Coronary calcifications. Great vessels are unremarkable. No pathologically enlarged thoracic lymph nodes. Emphysema again noted. Postsurgical changes within the right upper lung again appreciated. No foca l consolidation. No appreciable pleural fluid and no pneumothorax. No suspicious lung masses or stevie ng nodules. Within the visualized upper abdomen, status post cholecystectomy. Colonic diverticulosis. No acute osseous abnormalities. Impression: 1. No acute cardiopulmonary process. 2. Emphysema. 3. Coronary artery disease. 4. Colonic diverticulosis.
== END 2017-06-16 10:43 | disposition home or self-care (01) ==
LOC: RAD 10:42
PROVIDERS: ATTEND General Practice
DX: R05 Cough (principal); R04.2 Hemoptysis
CPT/HCPCS: 36415; 85025

== ENCOUNTER 2017-08-09 07:37 | Outpatient (CLI) ==
[2013-04-25 07:59] VITALS: TEMP 98
[2017-01-04 14:36] VITALS: BMI 32.2
[2017-08-09 08:01] LABS: BASOPHILS # (AUTO) 0.1 K/uL (0-0.2); BASOPHILS % (AUTO) 0.9 % (0.0-3.0); EOSINOPHILS # (AUTO) 0.1 K/ul (0.0-0.7); EOSINOPHILS % (AUTO) 1.2 % (0.0-7.0); HEMATOCRIT 36.4 % (37.0-47.0); HEMOGLOBIN 12.4 g/dl (12.0-16.0); IMMATURE GRANULOCYTE % (AUTO) 1.4 % (0.0-5.0); LYMPHOCYTES # (AUTO) 1.3 K/uL (0.60-3.4); LYMPHOCYTES % (AUTO) 22.4 (10.0-50.0); MEAN CORPUSCULAR HEMOGLOBIN 30.9 pg (27.0-31.0); MEAN CORPUSCULAR HGB CONC 34.1 (31.8-35.4); MEAN CORPUSCULAR VOLUME 90.8 fl (81.0-99.0); MONOCYTES # (AUTO) 0.6 K/uL (0.4-2.0); MONOCYTES % (AUTO) 10.4 (0-10); NEUTROPHILS # (AUTO) 3.7 K/ul (2.0-6.9); NEUTROPHILS % (AUTO) 63.7; PLATELET COUNT 211 10^3/uL (140-440); RED BLOOD COUNT 4.01 10^6/ul (4.20-5.40); WHITE BLOOD COUNT 5.77 K/ul (4.6-10.2)
[2017-08-09 08:21] LABS: ALBUMIN 3.5 g/dL (3.4-5.0); ALBUMIN/GLOBULIN RATIO 0.92; ANION GAP 13.7; BILIRUBIN,TOTAL 0.75 mg/dL (0.00-1.20); BUN/CREATININE RATIO 18.18; CHOL/HDL RATIO 2.4 (4.5-5.5); CREATININE 0.88 mg/dL (0.60-1.30); POTASSIUM 4.7 mmol/L (3.5-5.10); TOTAL PROTEIN 7.3 g/dL (5.8-8.1)
[2017-08-09 08:50] LABS: BILIRUBIN,URINE Negative (NEGATIVE); KETONES,URINE Negative (NEGATIVE); LEUKOCYTE ESTERASE ,URINE 1+ (NEGATIVE); NITRITE,URINE Negative (NEGATIVE); PROTEIN,URINE Negative (NEGATIVE); URINE, BLOOD Negative (NEGATIVE)
[2017-08-09 08:55] LABS: ADD URINE MICROSCOPIC YES
[2017-08-09 08:56] LABS: BACTERIA,URINE TRACE (NOT PRESENT)
== END 2017-08-09 07:38 | disposition home or self-care (01) ==
LOC: LAB 07:37
PROVIDERS: ATTEND General Practice
DX: E88.81 Metabolic syndrome and other insulin resistance (principal); I10 Essential (primary) hypertension; J44.9 Chronic obstructive pulmonary disease, unspecified; L65.9 Nonscarring hair loss, unspecified; Z79.899 Other long term (current) drug therapy; Z85.118 Personal history of other malignant neoplasm of bronchus and lung; Z85.3 Personal history of malignant neoplasm of breast
CPT/HCPCS: 36415; 80053; 80061; 81001; 85025; 87086

== ENCOUNTER 2017-12-13 07:55 | Outpatient (CLI) ==
[2013-04-25 07:59] VITALS: TEMP 98
[2017-01-04 14:36] VITALS: BMI 32.2
== END 2017-12-13 07:56 | disposition home or self-care (01) ==
LOC: LAB 07:55
PROVIDERS: ATTEND General Practice
DX: E88.81 Metabolic syndrome and other insulin resistance (principal); I10 Essential (primary) hypertension; J44.9 Chronic obstructive pulmonary disease, unspecified; Z79.899 Other long term (current) drug therapy
CPT/HCPCS: 36415; 80053; 80061; 81001; 85025

== ENCOUNTER 2017-12-19 11:13 | Inpatient (IN) ==
[2017-12-19 12:31] VITALS: BMI 29.5
--- NOTE | 2017-12-19 14:10 | CT ---
EXAM: CT chest without contrast HISTORY: Cough, shortness of breath COMPARISON: 06/16/2017 TECHNIQUE: CT chest performed without intravenous contrast. Coronal and sagittal reformatted images obtained. FINDINGS: Thoracic inlet unremarkable. Heart normal in size. Coronary calcifications. No pericard ial effusion. Aorta normal in caliber. Moderate atherosclerosis. Esophagus unremarkable. Bilatera l calcified breast implants. Patient status post cholecystectomy. Liver decreased attenuation. No acute abnormalities of the bones. Central airway patent. Severe centrilobular emphysema. Postsurgi renny change right upper lobe. Minimal chronic nodularity right major fissure appears unchanged. No ai rspace consolidation. No pleural effusion. No pneumothorax. Evaluation for lymphadenopathy limited without contrast. No lymphadenopathy identified. IMPRESSION: 1. No acute cardiopulmonary process. 2. Severe emphysema. 3. Coronary calcifications. Atherosclerosis. 4. Hepatic steatosis
[2017-12-19] MEDS ORDERED: PROAIR HFA IH PRN (16:11)
[2017-12-19] MEDS: SOLU-CORTEF 250 MG IVP SCH ×2 (16:41→20:51)
[2017-12-19] MEDS: DUONEB NEB SCH (17:49)
[2017-12-19] MEDS: MUCINEX PO SCH (20:28)
[2017-12-19] MEDS: CARDIZEM PO SCH (20:28)
[2017-12-20] MEDS: DUONEB NEB SCH ×2 (05:00→16:55)
[2017-12-20] MEDS: PROTONIX PO SCH (05:43)
[2017-12-20] MEDS: NON-FORMULARY MEDICATION (Fluticasone/Umeclidin/Vilanter [Trelegy Ellipta 100-62.5-25] 1 E IH SCH (08:54)
[2017-12-20] MEDS: HYDROCHLOROTHIAZIDE PO SCH (08:54)
[2017-12-20] MEDS: COZAAR PO SCH (08:54)
[2017-12-20] MEDS: SOLU-CORTEF 250 MG IVP SCH ×2 (08:54→21:53)
[2017-12-20] MEDS: MUCINEX PO SCH ×2 (08:55→20:33)
[2017-12-20] MEDS: CARDIZEM PO SCH ×2 (08:55→20:33)
[2017-12-20] MEDS ORDERED: NON-FORMULARY MEDICATION (Losartan/Hydrochlorothiazide [Losartan-Hctz 100-12.5 Mg Tab] 1 E PO SCH (09:00)
[2017-12-20] MEDS: TUSSIONEX PO SCH ×2 (13:00→20:33)
[2017-12-20] MEDS ORDERED: ROCEPHIN 2 GM in SODIUM CHLORIDE 100 ML IV SCH (19:30)
[2017-12-20] MEDS ORDERED: ROCEPHIN ONE (21:37)
[2017-12-21] MEDS: PROTONIX PO SCH (05:33)
[2017-12-21] MEDS: DUONEB NEB SCH ×2 (05:45→17:01)
[2017-12-21] MEDS: NON-FORMULARY MEDICATION (Fluticasone/Umeclidin/Vilanter [Trelegy Ellipta 100-62.5-25] 1 E IH SCH (09:50)
[2017-12-21] MEDS: ALDACTONE PO SCH (09:50)
[2017-12-21] MEDS: HYDROCHLOROTHIAZIDE PO SCH (09:50)
[2017-12-21] MEDS: CARDIZEM PO SCH ×2 (09:50→20:41)
[2017-12-21] MEDS: SOLU-CORTEF 250 MG IVP SCH ×2 (09:50→20:40)
[2017-12-21] MEDS: COZAAR PO SCH (09:50)
[2017-12-21] MEDS: TUSSIONEX PO SCH ×2 (09:51→20:40)
[2017-12-21] MEDS: MUCINEX PO SCH ×2 (09:51→20:41)
--- NOTE | 2017-12-21 13:48 | PN ---
DATE OF VISIT: 12/20/17 SUBJECTIVE: The patient is alert and oriented times four, not dyspneic or tachypneic. She was sitting when I made my rounds. It was slightly beyond 12:00. The cough has improved remarkably with Tussionex. She also made that comment that she was not coughing after the medication was given and she asked me what it was. LUNGS: No wheezing, breath sounds are diminished The was present when I advised her to really try to lose some weight because she has a fatty liver and a fatty will lead to cirrhosis. Cirrhosis caused by fatty liver does not improved very much after the liver has failed. The liver at this time hasn't. 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 I do believe weight loss would also improve her pulmonary problems. This patient is being followed by a crusher tender in [place] and was last seen 12/14/17. Pulmonary function was done 03/17/16 and compared to 03/13/15 there was a deterioration of FEV1 2nd from 55% to 50.86%. Again this probably would improve if she had lost a significant amount of weight. No antibiotic is given at this time. CONDITION: Guarded. MTDD
[2017-12-21] MEDS: ROCEPHIN 2 GM in SODIUM CHLORIDE 100 ML IV SCH (20:40)
[2017-12-22] MEDS: DUONEB NEB SCH ×3 (05:10→23:45)
[2017-12-22] MEDS: PROTONIX PO SCH (05:38)
[2017-12-22] MEDS: TUSSIONEX PO SCH ×2 (09:17→20:02)
[2017-12-22] MEDS: NON-FORMULARY MEDICATION (Fluticasone/Umeclidin/Vilanter [Trelegy Ellipta 100-62.5-25] 1 E IH SCH (09:17)
[2017-12-22] MEDS: COZAAR PO SCH (09:18)
[2017-12-22] MEDS: SOLU-CORTEF 250 MG IVP SCH ×2 (09:18→18:46)
[2017-12-22] MEDS: CARDIZEM PO SCH ×2 (09:18→20:02)
[2017-12-22] MEDS: MUCINEX PO SCH ×2 (09:18→20:02)
[2017-12-22] MEDS: HYDROCHLOROTHIAZIDE PO SCH (09:19)
[2017-12-22] MEDS ORDERED: DUONEB NEB PRN (09:34)
[2017-12-22] MEDS ORDERED: ALBUTEROL 0.083% NEB NEB PRN (13:02)
[2017-12-22] MEDS ORDERED: SOLU-CORTEF 250 MG IVP STA (13:10)
--- NOTE | 2017-12-22 17:16 | RS.OTINEVL ---
Subjective - Patient information Date of Evaluation: 12/22/17 Date of Arrival on Unit: 12/19/17 Admitted From:: Home Diagnosis: COPD with bronchitis exacerbation Usual Living Arrangement: With Spouse Living Arrangement Comments: Patient lives at home with . Patient did not use an assistive device to ambulate with at home. Patient sleeps with 02 at night. Patient sleeps in a bed that elevates the head. Pt was able to drive. Home Environment: House Medical History: COPD Medical History Comments:: SOA, Cough, hx of DVT/PE, Bronchitis Subjective Information/ Patient Comments:: "I coughed up so much stuff today my ribs are hurting." - Level of function Current Equipment Used at Home: Nebulizer, Oxygen Pain Assessment - Pain Pain Score: 2 Side: bilateral Pain Location Body Site: ribs (Pt hurts when she coughs or laughs.) Interventions - Objective Patient Orientation: Person, Place, Time, Situation Current Interventions: IV's, Oxygen Observation: Pt sitting up in the chair leaning forward to help with breathing. Interventions - ROM Right Upper Extremity AROM: Slight limitation Left Upper Extremity AROM: Slight limitation - Strength Right Upper Extremity Strength: Mild Weakness Left Upper Extremity Strength: Mild Weakness - Sensation Right Upper Extremity Sensation: Intact/Normal Left Upper Extremity Sensation: Intact/Normal Balance - Sitting Balance Static Sitting Balance: Fair Dynamic Sitting Balance: Fair - Standing Balance Static Standing Balance: Fair Dynamic Standing Balance: Fair ADL Skills - Self Feeding Self Feeding: Independent - Grooming Grooming: CGA - Bathing Bathing UE: Min Assist Bathing LE: Min Assist - Dressing Dressing UE: CGA Dressing LE: CGA - Toilet Management Toileting Management: CGA Functional Mobility - Bed Mobility Rolling R/L: CGA Scooting: CGA Supine to Sit: CGA Sit to Supine: CGA - Transfers Sit to Stand: CGA Stand to Sit: CGA Stand Pivot Transfers: CGA - Ambulation Weight Bearing Status: FWB Assistive Device Used: No Assistive Device Assistance needed with Ambulation: CGA - Safety Awareness Safety Awareness: Good Additional Treatment Performed - Additional units charged OT 1 to 1 Activity: 25 - Time with patient Total treatment time: 58 Activities Patient Interests:: Watching Television, Visiting/Socializing Patient Education Patient Education: Education of diagnosis, Home Safety, Activity Modification Comments: OT educating patient and her regarding COPD and energy conservation for the home. Assessment Problem List:: Decreased level of function, Requires training/education, Decreased safety/Risk of falls, Weakness Rehab Potential: Good Further Therapy Indicated?: Yes Evaluation Complexity: HISTORY: Medium, EXAM OF BODY SYSTEMS: Medium, CLINICAL DECISION MAKING: Medium Short Term Goals - Goals GOAL 1: Patient to increase activity tolerance in standing to 10 min. w/ rest PRN Goal to be met by: 12/29/16 Progress towards goal: Partially Met GOAL 2: Pt to increase BUE strength to 4/5 to increase I with ADLS. Goal to be met by: 12/29/16 Progress towards goal: Met GOAL 3: Pt to be CGA with dressing using AE PRN. Goal to be met by: 12/29/16 Progress towards goal: Met [employer] Goals GOAL 1: Pt to tolerate standing activity for 20-25 minutes w/rests PRN. Goal to be met by: 01/05/17 GOAL 2: Pt to increase BUE strength to 4+/5 to increase I of ADLS. Goal to be met by: 01/05/17 GOAL 3: Pt to be independent with home exercise program Goal to be met by: 01/05/17 Plan Plan of Care: Therapeutic EX, Neuromuscular Re-Educ, Therapeutic Activity, Self- Care/Home Management Frequency of Treatment: 1-2 X day, as tolerated Duration of Treatment: 2 Weeks Anticipated Discharge Destination: Home Has the Physician been added for Co-signature?: Yes
[2017-12-22] MEDS: ROCEPHIN 2 GM in SODIUM CHLORIDE 100 ML IV SCH (20:02)
[2017-12-23] MEDS: SOLU-CORTEF 250 MG IVP SCH ×4 (00:29→17:35)
[2017-12-23] MEDS: DUONEB NEB SCH ×3 (05:11→19:33)
[2017-12-23] MEDS: PROTONIX PO SCH (05:33)
[2017-12-23] MEDS: HYDROCHLOROTHIAZIDE PO SCH (08:45)
[2017-12-23] MEDS: TUSSIONEX PO SCH ×2 (08:45→20:32)
[2017-12-23] MEDS: ALDACTONE PO SCH (08:47)
[2017-12-23] MEDS: CARDIZEM PO SCH ×2 (08:47→20:33)
[2017-12-23] MEDS: MUCINEX PO SCH ×2 (08:47→20:33)
[2017-12-23] MEDS: COZAAR PO SCH (08:47)
[2017-12-23] MEDS: NON-FORMULARY MEDICATION (Fluticasone/Umeclidin/Vilanter [Trelegy Ellipta 100-62.5-25] 1 E IH SCH (08:48)
--- NOTE | 2017-12-23 13:25 | HP ---
CHIEF COMPLAINT: Cough and shortness of breath HISTORY OF PRESENT ILLNESS: The patient was seen at the office about a week with some nasal congestion and cough. No antibiotic was given. The patient was seen again on the day of admission because of increasing problems and increasing shortness of breath and cough was becoming repetitive. The patient during the course of the examination expiratory wheezing bilateral as well as anterior. The patient was then advised admission because of the progression of the problem. PAST PERSONAL HISTORY: The patient was admitted 11/19/16 and had been in the hospital several day because of severe dyspnea and tachypnea. The patient had gradually improved and was finally discharged. 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 She also had limited vulvectomy secondary to carcinoma done in [place] 2010, colonoscopy and endoscopy, cataract extraction 2010. She had previous diagnosis of pneumonia several time. Hypertension, GERD. Total abdominal hysterectomy in 1979, chronic tobacco use stopped in 1985. Markedly elevated BMI. FAMILY HISTORY: Denies any significantly hereditary diseases in the family. SOCIAL HISTORY: The patient is and resides with her . She is retired from the [employer]. She stopped in smoking in 1985. She denies any use of alcohol or drugs other than prescribed medications. MEDICATIONS: Protonix 40mg daily Albuterol Nebulizer 0.083% 3cc vial Nebulize Q 6 hours Mucinex 1200mg twice a day Losartan/Hydrochlorothiazide 100/12.5mg daily Aldactone 25mg every other day Diltiazem 60mg Q 12 hours Fluticasone/Umeclidinium/Vilanterol 100-62.5-25 one inhalation daily Albuterol ProAir two puffs every 6 hours PRN as rescue inhaler. ALLERGIES: Iodinated contrast-oral and IV dye Latex Tape REVIEW OF SYSTEMS: CONSTITUTIONAL: The patient is alert without any fever or chills. She is somewhat tired because of the cough. She also has some increasing shortness of breath. CERAMIC COATER MACHINE: Denies any significant headaches and no history of seizure problems or syncope or ataxia. VISUAL: Denies any blurred vision, double vision or transient loss of vision. AUDITORY: The patient denies any tinnitus, pain or drainage. RESPIRATORY: The patient has repetitive cough mostly nonproductive with shortness of breath. The patient is known to have COPD. CARDIOVASCULAR: The patient denies any chest pain or chest tightness. GASTROINTESTINAL: The patient has no nausea or anorexia. No abdominal pain, no diarrhea. Appetite is good. GENITOURINARY: Denies any burning on urination. MUSCULOSKELETAL: The patient does have some joint pains, not significant not requiring any medication ENDOCRINE: Negative. INTEGUMENT: Denies any rash or pleuritis HEMATOLOGIC: negative PSYCHIATRIC: Affect is normal PHYSICAL EXAMINATION: GENERAL: 72 year old female admitted to the hospital because of increasing shortness of breath with worsening cough. She is 5'3 and 167 pounds. BMI 29.6. VITAL SIGNS: Temperature 97.6, pulse 73, blood pressure 118/70, respiratory rate 24, oxygen saturation 96% at room air. HEAD: unremarkable, scalp no active dermitis. FACE: Symmetrical and equal with no facial weakness. No remarkable tenderness in the frontal maxillary sinus areas. EYES: Pupils equal/reactive to light. Conjunctivae not pale. Sclerae not icteric. 3mm in size and rounded. MOUTH: Unremarkable THROAT: No inflammation, tumors or exudate. NECK: No masses. No bruit. No tenderness. No rigidity. CHEST: Symmetrical and equal with acceptable expansion LUNGS: Breath sounds are diminished in both sides with expiratory wheezing both anteriorly and posteriorly. HEART: Audible and regular with good tones. No murmurs. Not tachycardiac ABDOMEN: Protuberant, soft with no remarkably tenderness. No guarding. Bowel sounds are active. No masses palpable. EXTERNAL GENITALIA: Not examined RECTAL: Not performed LOWER EXTREMITIES: Essentially symmetrical and equal with some ankle edema UPPER EXTREMITIES: Symmetrical and equal. ASSESSMENT: 1. Acute exacerbation of chronic bronchitis 2. COPD severe 3. History of chronic tobacco use and abuse, stopped 1985. 4. History of left breast carcinoma treated with wide resection and radiation 5. Right upper lobe carcinoma treated with resection 6. Vulvar malignancies treated with limited vulvectomy 7. History of sleep apnea not using CPAP 8. GERD 9. History of Dinora Arredondo virus and Cytomegalovirus infection MTDD
[2017-12-23] MEDS: AVELOX PO SCH (13:53)
[2017-12-23] MEDS: SODIUM CHLORIDE IV SCH ×2 (15:18→20:32)
[2017-12-23] MEDS: MAXIPIME IV SCH ×2 (15:18→20:32)
[2017-12-24] MEDS: SOLU-CORTEF 250 MG IVP SCH ×5 (00:44→23:02)
[2017-12-24] MEDS: DUONEB NEB SCH ×4 (05:20→22:00)
[2017-12-24] MEDS: MAXIPIME IV SCH ×3 (05:39→20:18)
[2017-12-24] MEDS: PROTONIX PO SCH (05:39)
[2017-12-24] MEDS: SODIUM CHLORIDE IV SCH ×3 (05:39→20:18)
[2017-12-24] MEDS: TUSSIONEX PO SCH ×2 (08:28→20:19)
[2017-12-24] MEDS: AVELOX PO SCH (08:28)
[2017-12-24] MEDS: NON-FORMULARY MEDICATION (Fluticasone/Umeclidin/Vilanter [Trelegy Ellipta 100-62.5-25] 1 E IH SCH (08:28)
[2017-12-24] MEDS: CARDIZEM PO SCH ×2 (08:29→20:19)
[2017-12-24] MEDS: COZAAR PO SCH (08:29)
[2017-12-24] MEDS: MUCINEX PO SCH ×2 (08:29→20:19)
[2017-12-24] MEDS: HYDROCHLOROTHIAZIDE PO SCH (08:29)
[2017-12-24] MEDS: LOVENOX SUBCUT SCH (14:52)
[2017-12-25] MEDS: MAXIPIME IV SCH ×3 (05:03→20:55)
[2017-12-25] MEDS: SODIUM CHLORIDE IV SCH ×3 (05:03→20:55)
[2017-12-25] MEDS: SOLU-CORTEF 250 MG IVP SCH ×4 (05:03→23:12)
[2017-12-25] MEDS: DUONEB NEB SCH ×4 (05:20→20:20)
[2017-12-25] MEDS: PROTONIX PO SCH (05:37)
[2017-12-25] MEDS: TUSSIONEX PO SCH ×2 (08:38→20:56)
[2017-12-25] MEDS: NON-FORMULARY MEDICATION (Fluticasone/Umeclidin/Vilanter [Trelegy Ellipta 100-62.5-25] 1 E IH SCH (08:38)
[2017-12-25] MEDS: LOVENOX SUBCUT SCH (08:38)
[2017-12-25] MEDS: CARDIZEM PO SCH ×2 (08:39→20:56)
[2017-12-25] MEDS: HYDROCHLOROTHIAZIDE PO SCH (08:39)
[2017-12-25] MEDS: MUCINEX PO SCH ×2 (08:39→20:56)
[2017-12-25] MEDS: AVELOX PO SCH (08:39)
[2017-12-25] MEDS: COZAAR PO SCH (08:40)
[2017-12-25] MEDS: ALDACTONE PO SCH (08:40)
[2017-12-25] MEDS: COLACE PO SCH (20:56)
[2017-12-26] MEDS: MAXIPIME IV SCH ×2 (04:08→13:03)
[2017-12-26] MEDS: SODIUM CHLORIDE IV SCH ×2 (04:08→13:03)
[2017-12-26] MEDS: DUONEB NEB SCH ×3 (05:05→14:07)
[2017-12-26] MEDS: PROTONIX PO SCH (06:02)
[2017-12-26] MEDS: SOLU-CORTEF 250 MG IVP SCH ×2 (06:02→13:03)
--- NOTE | 2017-12-26 08:11 | PN ---
DATE OF VISIT: 12/22/17 SUBJECTIVE: The patient had increased shortness of breath after going to the bathroom about noon. The patient has a little bit more wheezing inspiratory plus expiratory wheezing. HEART: Normal sinus rhythm The DUO NEBS are to be given every 6 hours. Solu-Cortef is going to be given every 6 hours. I again advised her to really consider losing weight. VITAL SIGNS: Temperature 97.6, pulse 80, blood pressure 139/56, respiratory rate 24 and oxygen saturation 97% at 2 liters. LABS: CBC today showed WBC 12,680 probably secondary to steroids. Hgb and hct has decreased compared to the 12/19/17. We will order CBC and CMP for tomorrow. MTDD
--- NOTE | 2017-12-26 08:35 | PN ---
DATE OF VISIT: 12/24/17 SUBJECTIVE: The patient is alert and oriented, not dyspneic or tachypneic at rest. She is still using 2 liters of nasal oxygen. The mentioned that while she is asleep that her mouth is open and whether that cuts down on the oxygen and I told him yes. If the oxygen saturation is below 90 then we will have to put a mask on her. The level of the oxygen at this time is about 94 and about 97% at 2 liters. VITALS: Temperature 98.1, pulse 81, blood pressure 151/64 and respiratory rate 24 and oxygen saturation 95% at 2 liters of oxygen. LUNGS: Diminished breath sounds with minimal expiratory wheeze. The sounds is mostly coming from the neck or the throat. HEART: Audible and regular with good tones EXTREMITIES: No tenderness in the calf muscles. CONDITION: Stable although still has shortness of breath on exertion. This patient was seen by Dr. Gooden for a general consultation and evaluation. Dr. Gooden is an hollow tile partition erector Alterations Expert. KING
--- NOTE | 2017-12-26 08:48 | PN ---
DATE OF VISIT: 12/25/17 SUBJECTIVE: The patient at 6:00pm jeannie had a temperature 98.1, pulse 82, blood pressure 147/69, respiratory rate 20, oxygen saturation 95 at 2 liters. The oxygen saturation before that was between 96-98 at 2 liters. The patient claimed to be feeling somewhat better. She still has shortness of breath on exertion and she is walking around the room. LUNGS: Breath sounds are diminished on both sides with no rales or wheezing. HEART: Audible and regular with good tones. Chest CT will be ordered today and this patient was advised. Initial CT does not show any acute processes. CBC and CMP also will be ordered for tomorrow. The last test she had was 12/23/17. KING
[2017-12-26] MEDS: TUSSIONEX PO SCH (08:52)
[2017-12-26] MEDS: NON-FORMULARY MEDICATION (Fluticasone/Umeclidin/Vilanter [Trelegy Ellipta 100-62.5-25] 1 E IH SCH (08:52)
[2017-12-26] MEDS: COLACE PO SCH (08:53)
[2017-12-26] MEDS: LOVENOX SUBCUT SCH (08:53)
[2017-12-26] MEDS: COZAAR PO SCH (08:54)
[2017-12-26] MEDS: HYDROCHLOROTHIAZIDE PO SCH (08:54)
[2017-12-26] MEDS: CARDIZEM PO SCH (08:54)
[2017-12-26] MEDS: MUCINEX PO SCH (08:56)
[2017-12-26] MEDS: AVELOX PO SCH (08:56)
[2017-12-26 10:20] VITALS: BP 153/73; TEMP 98.5
--- NOTE | 2017-12-26 11:42 | CT ---
EXAM: CT chest without contrast. HISTORY: Bronchitis. Shortness of breath. Wheezing. Follow up. COMPARISON: 12/19/2017, 06/16/2017, 12/04/2016 and 08/24/16. TECHNIQUE: Multiple axial images of the chest were obtained without intravenous contrast. Images we re reformatted in the sagittal and coronal planes. FINDINGS: Peripherally calcified breast implants again noted bilaterally. Evaluation for lymphadeno reynold is limited by lack of intravenous contrast. The heart size is normal. No pericardial effusion identified. Atherosclerotic calcifications are present. Staple line seen in the right apex. Severe emphysematous changes noted bilaterally. Thin linear opa cities in both lung bases noted. No consolidation, pleural effusion or pneumothorax identified. Limited images of the upper abdomen demonstrate no acute abnormality. No acute osseous abnormality i dentified. Old right rib fractures noted. Since prior study, there has been no significant interval change. IMPRESSION: 1. No acute cardiopulmonary process. 2. Stable severe emphysema.
--- NOTE | 2017-12-27 13:35 | CONS ---
The patient was seen on consult: 12/24/17: Level 5 12/25/17: Intermediate 12/26/17: Intermediate 12/27/17: Intermediate MTDD
--- NOTE | 2017-12-29 10:32 | DS ---
PATIENT IDENTIFICATION: 72 year old female who is known to have chronic obstructive lung disease, severe followed by a engine dispatcher. The patient was seen a week prior to the day of admission at the office because of nasal congestion and cough. No antibiotics were given at that time since there were no findings to indicate that she does have a bacterial infection. She was seen on follow up on the day of admission and her problem had increased with increasing shortness of breath and now with inspiratory, plus expiratory wheezing. This patient had been admitted previously because of a severe bout of shortness of breath which required many days of hospitalization. HOSPITAL COURSE: The patient's present medications consisted of Protonix 40 mg daily, Albuterol nebulizer 0.083% at 3 cc vial, nebulize every 6 hours as needed. Mucinex 1200 mg twice a day, Losartan/Hydrochlorothiazide 100/12.5 daily, Aldactone 25 mg every other day, Diltiazem 60 mg every 12 hours, Fluticasone/Umeclidin/Vilanter 100/62.25/25 one inhalation daily. Albuterol ProAir two puffs every 6 hours prn, rescue inhaler. The patient is allergic to Iodine and iodine contrast medium, plus Latex and adhesive tape. The patient's admission vital signs showed tachypnea. Respiratory rate of 24, oxygen saturation 96 probably room air, temperature 97.6, pulse 73. BMI 29.6. LUNGS: The lungs again has markedly diminished breath sounds with expiratory wheezing and some inspiratory wheeze. Her wheezing is heard both anteriorly and posteriorly. HEART: Audible and regular with good tones. No murmurs and not tachycardic. ABDOMEN: Protuberant, soft. LOWER EXTREMITIES: Some ankle edema bilateral. The patient had a chest CT 12/19/17 showing no acute cardiopulmonary processes, severe emphysema, coronary artery calcifications and hepatic steatosis. She had a repeat CT prior to discharge from acute care done 12/26/2017 again showing no acute cardiopulmonary processes, stable, severe emphysema. The patient's CBC showed a slight leukocytosis, may be secondary to steroids. Neutrophils were elevated. Arterial Blood gases with oxygen saturation 94, pH 7.410, PCO2 40.4, PO2 70, HC03 25.6, total CO2 27. Done at room air. Chemistries done times three, 12/19/17, 12/23/17 and 12/26/17 showed no significant abnormalities. There is some mild changes, but not clinically significant. The sputum culture did show Klebsiella Oxytoca and Pseudomonas Aeruginosa. Both bacteria are sensitive to Cefepime and the Klebsiella is sensitive to Levofloxacin, but the Pseudomonas Aeruginosa is resistant to Levo. This patient was placed on Moxifloxacin, plus Cefepime. This patient will be continued on this antibiotic. Expected discharge in maybe three or four days. The patient at the time of discharge was alert, ambulatory with short distances. She is feeling some better, but she is still short of breath with some exertion. LUNGS: Markedly diminished breath sounds in both sides with no wheezing. HEART: Audible with good tones. No murmurs. ABDOMEN: Protuberant, soft with no remarkable tenderness and no guarding. Bowel sounds are active. No masses palpable. LOWER EXTREMITIES: Essentially symmetrical and equal with no significant edema. UPPER EXTREMITIES: Symmetrical and equal. The patient is then discharged to today from acute care to Transitional Care. Orders for Transitional Care were written, including the antibiotics. FINAL DIAGNOSES: 1. CHRONIC OBSTRUCTIVE PULMONARY DISEASE, SEVERE WITH ACUTE EXACERBATION 2. ACUTE BRONCHITIS WITH RESPIRATORY BACTERIA CONSISTING OF PSEUDOMONAS AERUGINOSA AND KLEBSIELLA OXYTOCA The patient will be continued on the antibiotics at discharge consisting of Cefepime, as well as Moxifloxacin. [facility]
== END 2017-12-26 16:52 | disposition swing bed (61) | DRG 192 ==
LOC: MEDSURG A 11:13
PROVIDERS: ADMIT General Practice; ATTEND General Practice
DX: J44.1 Chronic obstructive pulmonary disease with (acute) exacerbation (principal); J20.8 Acute bronchitis due to other specified organisms; J44.0 Chronic obstructive pulmonary disease with (acute) lower respiratory infection; K76.0 Fatty (change of) liver, not elsewhere classified; R06.02 Shortness of breath; G47.30 Sleep apnea, unspecified; Z86.19 Personal history of other infectious and parasitic diseases; Z87.891 Personal history of nicotine dependence; Z79.899 Other long term (current) drug therapy
CPT/HCPCS: 36415; 80053; 80061; 81001; 82803; 83880; 85007; 85025; 87040; 87070; 87186; 93005; 93010; 94640

== ENCOUNTER 2017-12-26 17:12 | Inpatient (IN) ==
[2017-12-26] MEDS ORDERED: ALBUTEROL 0.083% NEB NEB PRN ×2 (17:37→17:45)
[2017-12-26] MEDS ORDERED: PROAIR HFA IH PRN (18:05)
[2017-12-26] MEDS: DUONEB NEB SCH (19:40)
[2017-12-26] MEDS ORDERED: DUONEB NEB SCH (20:00)
[2017-12-26] MEDS ORDERED: NON-FORMULARY MEDICATION (Guaifenesin [Mucinex] 1,200 MG) PO SCH (21:00)
[2017-12-26] MEDS: MAXIPIME 2 GM in SODIUM CHLORIDE 100 ML IV SCH (21:41)
[2017-12-26] MEDS: CARDIZEM PO SCH (21:46)
[2017-12-26] MEDS: COLACE PO SCH (21:46)
[2017-12-26] MEDS: TUSSIONEX PO SCH (21:50)
[2017-12-26] MEDS: NYSTATIN ORAL SUSP PO SCH (22:43)
[2017-12-26] MEDS: SOLU-CORTEF 250 MG IVP SCH (23:02)
[2017-12-27] MEDS: PROTONIX PO SCH (05:40)
[2017-12-27] MEDS: MAXIPIME 2 GM in SODIUM CHLORIDE 100 ML IV SCH (05:40)
[2017-12-27] MEDS: NYSTATIN ORAL SUSP PO SCH ×4 (05:48→20:29)
[2017-12-27] MEDS: SOLU-CORTEF 250 MG IVP SCH ×4 (05:49→23:30)
[2017-12-27] MEDS: DUONEB NEB SCH ×4 (05:50→21:29)
[2017-12-27] MEDS ORDERED: NON-FORMULARY MEDICATION (Losartan/Hydrochlorothiazide [Losartan-Hctz 100-12.5 Mg Tab] 1 E PO SCH (09:00)
[2017-12-27] MEDS ORDERED: AVELOX PO SCH (09:00)
[2017-12-27] MEDS: LOVENOX SUBCUT SCH (10:03)
[2017-12-27] MEDS: COLACE PO SCH ×2 (10:03→20:29)
[2017-12-27] MEDS: COZAAR PO SCH (10:03)
[2017-12-27] MEDS: K-DUR PO SCH (10:03)
[2017-12-27] MEDS: CARDIZEM PO SCH ×2 (10:03→20:30)
[2017-12-27] MEDS: HYDROCHLOROTHIAZIDE PO SCH (10:04)
[2017-12-27] MEDS: MUCINEX PO SCH ×2 (10:04→20:30)
[2017-12-27] MEDS: TUSSIONEX PO SCH ×2 (10:05→20:29)
[2017-12-27] MEDS: NON-FORMULARY MEDICATION (Fluticasone/Umeclidin/Vilanter [Trelegy Ellipta 100-62.5-25] 1 E IH SCH (10:05)
[2017-12-27] MEDS ORDERED: MAXIPIME IV SCH (13:00)
[2017-12-27] MEDS ORDERED: SODIUM CHLORIDE IV SCH (13:00)
--- NOTE | 2017-12-27 16:34 | RS.PTINEVL ---
Subjective - Patient information Date of Evaluation: 12/27/17 Date of Arrival on Unit: 12/26/17 Admitted From:: In-House Transfer Diagnosis: acute exacerbation of chronic bronchitis, COPD Usual Living Arrangement: Alone Living Arrangement Comments: pt lives at home with . pt has 3 steps to enter home with handrail. pt has rolling walker at home but was not having to use it prior to this illness. Home Environment: House, Stairs (few), Rail Medical History: Hypertension, Arthritis, Cancer Medical History Comments:: L breast CA with resection and radiation, R upper lobe CA, vulvar malignancies, sleep apnea, GERD, hepatic stenosis LATEX ALLERGY?: No Surgical History: Cholecystectomy, Hysterectomy Surgical History Comments:: limited vulvectomy Medications: see chart Subjective Information/ Patient Comments:: pt states that she has had a rash today and has notified nurse and thinks it may be reaction to IV antibiotics. 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 pulse ox prior to amb 93%, after amb 89% Range of Motion - ROM Right Upper Extremity AROM: WFL's Left Upper Extremity AROM: WFL's Right Lower Extremity AROM: WFL's Left Lower Extremity AROM: WFL's Muscle Strength - Muscle Strength Right Upper Extremity Strength: Mild Weakness (grossly 4/5) Left Upper Extremity Strength: Mild Weakness (grossly 4/5) Right Lower Extremity Strength: Mild Weakness (hip flex 4-/5, knee flex/ext 4/5 , ankle Df/PF 4/5) Left Lower Extremity Strength: Mild Weakness (hip flex 4-/5, knee flex/ext 4/5, ankle Df/PF 4/5) Sensation - Sensation Right Upper Extremity Sensation: Impaired Left Upper Extremity Sensation: Impaired Right Lower Extremity Sensation: Intact/Normal Left Lower Extremity Sensation: Intact/Normal Comments: n/t B hands Palpation Palpation Findings: None/Normal Balance - Sitting Balance and Reactions Static Sitting Balance: Good Dynamic Sitting Balance: Good - Standing Balance and Reactions Static Standing Balance: Fair Dynamic Standing Balance: Poor Standing Equilibrium Reactions: Delayed Left, Delayed Right Standing Protective Reactions: Delayed Left, Delayed Right Functional Mobility - Transfers Sit to Stand: CGA Stand to Sit: CGA - Safety Awareness Safety Awareness: Good Ambulation - Ambulation Assistive Device Used: Rolling Walker Orthotic/Prosthetic Device: No Distance: 70ft Assistance needed with Ambulation: Min Assist Quality of Ambulation: min assist of 1 +1 for IV and O2 Gait Deviations: Forward posture, Short stride Ambulation Comments: pt amb with increased lat sway. pt with increased SOA with amb. Factors Affecting Ambulation: Decreased Balance, Breathing/O2 Saturation, Decreased Safety, Limited Endurance Treatment time - Time with patient Total treatment time: 26 Patient Education - Education Patient Education: Education of diagnosis, Education of Plan of Care Teaching Recipient: Patient Teaching Methods: Discussion, Demonstration Comments: Discussed POC with patient and Assessment - Assessment Problem List:: Decreased level of function, Requires training/education, Decreased safety/Risk of falls, Weakness Rehab Potential: Good Further Therapy Indicated?: Yes Evaluation Complexity: HISTORY: High (COPD, acute exacerbation, CA, OA, HTN), EXAM OF BODY SYSTEMS: Medium (strength, balance, gait), CLINICAL PRESENTATION: Medium (evolving), CLINICAL DECISION MAKING: Medium Short Term Goals GOAL #1: pt demonstrate independence with bed mobility Goal to be met by: 12/31/17 GOAL #2: pt transfer sup to/from sit to/from stand CGA Goal to be met by: 12/31/17 GOAL #3: pt amb with/without rwx 100ft with CGA with no LOB Goal to be met by: 12/31/17 Director Of Financial Reporting Goals GOAL #1: pt transfer sup to/from sit to/from stand independently Goal to be met by: 01/03/18 GOAL #2: pt amb with/without rwx functional household distances with SBA Goal to be met by: 01/03/18 GOAL #3: pt with improved BLE strength 4 to 4+/5 and independent with HEP Goal to be met by: 01/03/18 Plan Plan of Care: Therapeutic EX, Therapeutic Activity Other:: gait training Frequency of Treatment: 1-2 X day, as tolerated Duration of Treatment: 1 Week Anticipated Discharge Destination: Home Has the Physician been added for Co-signature?: Yes
--- NOTE | 2017-12-27 16:34 | RS.OTINEVL ---
Subjective - Patient information Date of Evaluation: 12/27/17 Date of Arrival on Unit: 12/26/17 Admitted From:: In-House Transfer Usual Living Arrangement: Alone Living Arrangement Comments: pt lives at home with . pt has 3 steps to enter home with handrail. pt has rolling walker at home but was not having to use it prior to this illness. Home Environment: House, Stairs (few), Rail Medical History: Hypertension, Arthritis, Cancer Medical History Comments:: L breast CA with resection and radiation, R upper lobe CA, vulvar malignancies, sleep apnea, GERD, hepatic stenosis LATEX ALLERGY?: No Surgical History: Cholecystectomy, Hysterectomy Surgical History Comments:: limited vulvectomy Medications: see chart Subjective Information/ Patient Comments:: Pt is SOA with activity. Pt would benefit from a Rolling Walker and therapy. - Level of function Abilities prior to this admission: Pt was independent with ADLS. Pt was walking independently. Current Level of Function: Partially Dependent Current Equipment Used at Home: Nebs and O2, Pain Assessment - Pain Pain Score: 0 Interventions - Objective Patient Orientation: Person, Place, Time, Situation Current Interventions: IV's, Oxygen Observation: Pt very short of breath with standing and functional transfers. Interventions - ROM Right Upper Extremity AROM: WFL's Left Upper Extremity AROM: WFL's - Strength Right Upper Extremity Strength: Mild Weakness Left Upper Extremity Strength: Mild Weakness - Sensation Right Upper Extremity Sensation: Intact/Normal Left Upper Extremity Sensation: Intact/Normal Balance - Sitting Balance Static Sitting Balance: Fair Dynamic Sitting Balance: Fair - Standing Balance Static Standing Balance: Fair Dynamic Standing Balance: Fair ADL Skills - Self Feeding Self Feeding: Independent - Grooming Grooming: Supervision - Bathing Bathing UE: Min Assist Bathing LE: Min Assist - Dressing Dressing UE: CGA, Min Assist Dressing LE: Min Assist - Toilet Management Toileting Management: Min Assist Functional Mobility - Bed Mobility Rolling R/L: Independent Scooting: Independent Supine to Sit: Independent Sit to Supine: Independent - Transfers Sit to Stand: CGA Stand to Sit: CGA Stand Pivot Transfers: CGA - Ambulation Weight Bearing Status: FWB Assistance needed with Ambulation: CGA - Safety Awareness Safety Awareness: Good Additional Treatment Performed - Time with patient Total treatment time: 20 Activities Patient Interests:: Reading Books/Magazines, Watching Television, Puzzles/Games Patient Education Patient Education: Education of diagnosis, Home Exercise Program, Education of Plan of Care Teaching Recipient: Patient Teaching Methods: Discussion Assessment Problem List:: Decreased level of function, Requires training/education, Decreased safety/Risk of falls, Weakness Rehab Potential: Good Further Therapy Indicated?: Yes Evaluation Complexity: HISTORY: Medium, EXAM OF BODY SYSTEMS: Medium, CLINICAL DECISION MAKING: Medium Short Term Goals - Goals GOAL 1: Patient to increase activity tolerance in standing to 10 min. w/ rest PRN Goal to be met by: 01/03/18 GOAL 2: Pt to increase BUE strength to 4/5 to increase I with ADLS. Goal to be met by: 01/03/18 GOAL 3: Pt to be CGA with dressing using AE PRN. Goal to be met by: 01/03/18 Hearing Health Technician Goals GOAL 1: Pt to tolerate standing activity for 20-25 minutes w/rests PRN. Goal to be met by: 01/10/18 GOAL 2: Pt to increase BUE strength to 4+/5 to increase I of ADLS. Goal to be met by: 01/10/18 GOAL 3: Pt to be independent with home exercise program Goal to be met by: 01/10/18 Plan Plan of Care: Therapeutic EX, Neuromuscular Re-Educ, Therapeutic Activity, Self- Care/Home Management Frequency of Treatment: 1-2 X day, as tolerated Duration of Treatment: 2 Weeks Anticipated Discharge Destination: Home Has the Physician been added for Co-signature?: Yes
[2017-12-27] MEDS: D5%-NS-KCL 20 MEQ/L IV SOL 1,000 ML IV SCH (18:19)
[2017-12-28] MEDS: D5%-NS-KCL 20 MEQ/L IV SOL 1,000 ML IV SCH (03:45)
[2017-12-28] MEDS: DUONEB NEB SCH ×4 (05:07→20:55)
[2017-12-28] MEDS: SOLU-CORTEF 250 MG IVP SCH ×3 (05:38→17:45)
[2017-12-28] MEDS: PROTONIX PO SCH (06:02)
[2017-12-28] MEDS: NYSTATIN ORAL SUSP PO SCH ×4 (06:02→20:36)
[2017-12-28] MEDS: ALDACTONE PO SCH (10:04)
[2017-12-28] MEDS: CARDIZEM PO SCH ×2 (10:04→20:37)
[2017-12-28] MEDS: COLACE PO SCH ×2 (10:04→20:37)
[2017-12-28] MEDS: NON-FORMULARY MEDICATION (Fluticasone/Umeclidin/Vilanter [Trelegy Ellipta 100-62.5-25] 1 E IH SCH (10:05)
[2017-12-28] MEDS: COZAAR PO SCH (10:05)
[2017-12-28] MEDS: HYDROCHLOROTHIAZIDE PO SCH (10:06)
[2017-12-28] MEDS: K-DUR PO SCH (10:06)
[2017-12-28] MEDS: MUCINEX PO SCH ×2 (10:07→20:37)
[2017-12-28] MEDS: LOVENOX SUBCUT SCH (10:08)
[2017-12-28] MEDS: TUSSIONEX PO SCH ×2 (10:08→20:36)
[2017-12-28] MEDS: GENTAMICIN SULFATE 70 MG in SODIUM CHLORIDE 50 ML IV SCH ×2 (16:53→20:36)
[2017-12-29] MEDS: SOLU-CORTEF 250 MG IVP SCH ×5 (01:02→23:13)
[2017-12-29] MEDS: DUONEB NEB SCH ×4 (05:25→21:10)
[2017-12-29] MEDS: PROTONIX PO SCH (06:04)
[2017-12-29] MEDS: NYSTATIN ORAL SUSP PO SCH ×4 (06:04→20:16)
[2017-12-29] MEDS ORDERED: D5%-1/2NS-KCL 40 MEQ/L IV SOL 1,000 ML IV SCH (07:30)
[2017-12-29] MEDS: CARDIZEM PO SCH ×2 (08:49→20:16)
[2017-12-29] MEDS: COLACE PO SCH ×2 (08:50→20:16)
[2017-12-29] MEDS: COZAAR PO SCH (08:50)
[2017-12-29] MEDS: NON-FORMULARY MEDICATION (Fluticasone/Umeclidin/Vilanter [Trelegy Ellipta 100-62.5-25] 1 E IH SCH (08:51)
[2017-12-29] MEDS: GENTAMICIN SULFATE 70 MG in SODIUM CHLORIDE 50 ML IV SCH ×2 (08:52→20:15)
[2017-12-29] MEDS: HYDROCHLOROTHIAZIDE PO SCH (08:53)
[2017-12-29] MEDS: LOVENOX SUBCUT SCH (08:54)
[2017-12-29] MEDS: K-DUR PO SCH ×3 (08:54→16:37)
[2017-12-29] MEDS: MUCINEX PO SCH ×2 (08:57→20:25)
[2017-12-29] MEDS: TUSSIONEX PO SCH ×2 (08:58→20:15)
--- NOTE | 2017-12-29 11:04 | HP ---
CHIEF COMPLAINT: Shortness of breath on exertion, cough and continued antibiotic IV therapy. HISTORY OF PRESENT ILLNESS: This patient was admitted 12/19/17 because of increasing shortness of breath. The patient had inspiratory, plus expiratory wheezing with a markedly depressed breath sounds. Heart was normal sinus rhythm. The chest CT without contrast showed no acute pulmonary process, but the patient had a severe emphysema. The patient's culture of the sputum showed two bacterial populations, Klebsiella Oxytoca and Pseudomonas Aeruginosa. The patient was initiated on Moxifloxacin because of the Klebsiella Oxytoca. The second sputum culture did show Pseudomonas and sensitive to Cefepime. The Klebsiella also was sensitive to Cefepime. This patient was then given 2 grams of Cefepime IV every 8 hours. The patient had improved, but needed continued IV medication for the bacterial growth. She still has shortness of breath with exertion, but somewhat better than on admission or the next few days of admission. The patient was then discharged from acute care to [facility] for the above purpose. Please refer to the acute admission. Past family history, as well as social history, refer to the acute admission. MEDICATIONS FROM ACUTE CARE TO TRANSITIONAL: Are the following: Albuterol sulfate 0.083%/3 cc per nebulization every 2 hours prn Albuterol sulfate HFA two puffs every 6 hours prn for wheezing, rescue inhaler DuoNeb one vial nebulizer four times daily Tussionex one teaspoon twice a day Diltiazem 60 mg every 12 hours Docusate sodium 100 mg twice a day Lovenox 40 subcutaneously daily Avelox 400 mg p.o. daily Cefepime 2 grams IV every 8 hours Mucinex 1200 mg twice a day Hydrochlorothiazide 12.5 mg daily Solu-Cortef 250 mg IV every 6 hours Losartan 100 mg daily Trelegy Ellipta 100/62.5/25 one inhalation daily Nystatin oral suspension 5 cc, swish around the mouth before meals and hs, spit or swallow. Protonix 40 mg daily KCL 20 mEq daily Aldactone 25 mg every other day ALLERGIES: Iodinated contrast, oral, plus IV dye, latex and tape. PHYSICAL EXAMINATION: GENERAL: 72 year old female admitted to Transitional from acute care for continued IV medications, antibiotics for sputum culture growing Pseudomonas , as well as Klebsiella Oxytoca. The patient's symptoms had improved, exertional dyspnea somewhat less. VITAL SIGNS: At 5:21 p.m. on 12/26/17 showed a temperature 97.6, pulse 76, blood pressure 118/72, respiratory rate 20, oxygen saturation 95 at 2 liters. HEAD: Unremarkable. FACE: Symmetrical and equal with no facial weakness. No tenderness in the frontal or maxillary sinus areas to palpation under pressure. EYES: Pupils equal/reactive to light. Conjunctivae not pale. Sclerae not icteric. MOUTH: Unremarkable. THROAT: No inflammation, tumors or exudate. NECK: No masses. No bruit. No tenderness. No rigidity. CHEST: Symmetrical with the left breast firmer from the radiation. The patient had left breast carcinoma. She also has a scar on the right side from the right upper lobectomy for carcinoma. LUNGS: Breath sounds are markedly diminished in both sides with no expiratory wheezing now, posteriorly and anteriorly. HEART: Audible and regular with good tones. No murmurs. ABDOMEN: Protuberant, soft with no remarkable tenderness. No guarding. Bowel sounds are active. EXTERNAL GENITALIA: Not examined. This patient had a vulvectomy. LOWER EXTREMITIES: Symmetrical and equal with no significant edema. No tenderness in the calf muscles. UPPER EXTREMITIES: Symmetrical and equal. ASSESSMENT: 1. CHRONIC OBSTRUCTIVE PULMONARY DISEASE, SEVERE WITH ACUTE EXACERBATION, BACTERIAL-PSEUDOMONAS AERUGINOSA AND KLEBSIELLA OXYTOCA. 2. HISTORY OF CHRONIC TOBACCO USE AND ABUSE, STOPPED 1986-THREE PACKS OF CIGARETTES A DAY 3. HISTORY OF LEFT BREAST CARCINOMA OPERATED AND TREATED WITH RADIATION 4. RIGHT UPPER LOBE CARCINOMA, STATUS POST SURGERY 5. HISTORY OF VULVA CARCINOMA, STATUS POST VULVECTOMY, LIMITED 6. HISTORY OF SLEEP APNEA, NOT USING C-PAP 7. HISTORY OF GERD 8. HISTORY OF NAYELI JEFFERY VIRUS AND CYTOMEGALY VIRUS INFECTION 9. ELEVATED BMI MTDD
--- NOTE | 2017-12-29 11:49 | CONS ---
DATE OF SERVICE: 12/27/17 CONSULT FOLLOWUP SUBJECTIVE: The patient is doing well and feeling a lot better. REVIEW OF SYSTEMS: CONSTITUTIONAL: No night sweats. No fatigue, malaise, lethargy. No fever or chills. HEENT: Eyes: No visual changes. No eye pain. No eye discharge. ENT: No runny nose. No epistaxis. No sinus pain. No sore throat. No odynophagia. No ear pain. No congestion. RESPIRATORY: Much less cough, no congestion. No hemoptysis. CARDIOVASCULAR: No angina symptoms. No CHF symptoms. No atypical chest pain for CAD. No palpitations. No shortness of breath. GASTROINTESTINAL: No abdominal pain. No nausea or vomiting. No diarrhea or constipation. No hematemesis. No hematochezia. Appetite has improved. GENITOURINARY: No urgency. No frequency. No dysuria. No hematuria. No obstructive symptoms. No discharge. No pain. No significant abnormal bleeding. MUSCULOSKELETAL: No musculoskeletal pain. No joint swelling. No arthritis. NEUROLOGICAL: No headache. No neck pain. No syncope. No seizures. No dizziness. PSYCHIATRIC: Not anxious. No depression. No suicidal thoughts. No homicidal thoughts. SKIN: No rash. No lesions. No wounds. ENDOCRINE: No unexplained weight loss. No weight gain. HEMATOLOGIC/LYMPHATIC: No anemia. No purpura. No petechiae. No prolonged or excessive bleeding. No palpable lymph nodes. PHYSICAL EXAMINATION: GENERAL: The patient is oriented to time, place and person. HEENT: Head normocephalic, atraumatic. Eyes: Extraocular muscles are intact. Pupils are equal, round and reactive to light and accommodation. Ears: No lesions. Nose appeared normal. Throat: No exudate or erythema. NECK: Supple. No JVD, no carotid bruit. No lymphadenopathy or thyromegaly. LUNGS: Decreased breath sounds with good air entry. No wheezing for the first time. Percussion note normal. Chest symmetrical. HEART: S1, S2, no S3. No murmurs. No cyanosis or clubbing. No ascites. Pulses: Dorsalis pedis and posterior tibial pulses +1 to +2 both sides. ABDOMEN: Soft. Nontender. Bowel sounds active. No CVA tenderness. No mass felt. EXTREMITIES: No edema. Full range of motion of all extremities, equal. NEUROLOGIC: No focal deficit. Cranial nerves II through XII are grossly intact. No headache, no double vision or headache. SKIN: Not dry. Intact. Turgor - normal. LYMPHATIC: No palpable lymph nodes/no lymphedema. MUSCULOSKELETAL: Normal joints with no swelling. Muscle tone is normal. ASSESSMENT: 1. Acute bronchiolitis 2. Bronchitis/COPD seems to be improving RECOMMENDATIONS: 1. Agreed with present management 2. Advised to lose weight 3. Advised to join pulmonary rehab 4. Cardiovascular status is stable with no evidence of CHF CONDITION: Stable MTDD
[2017-12-30] MEDS: DUONEB NEB SCH ×4 (05:00→20:55)
[2017-12-30] MEDS: PROTONIX PO SCH (05:43)
[2017-12-30] MEDS: SOLU-CORTEF 250 MG IVP SCH ×3 (05:43→17:44)
[2017-12-30] MEDS: NYSTATIN ORAL SUSP PO SCH ×4 (05:43→20:22)
[2017-12-30] MEDS: K-DUR PO SCH ×3 (08:37→17:42)
[2017-12-30] MEDS: NON-FORMULARY MEDICATION (Fluticasone/Umeclidin/Vilanter [Trelegy Ellipta 100-62.5-25] 1 E IH SCH (08:38)
[2017-12-30] MEDS: MUCINEX PO SCH ×2 (08:38→20:22)
[2017-12-30] MEDS: COZAAR PO SCH (08:38)
[2017-12-30] MEDS: LOVENOX SUBCUT SCH (08:39)
[2017-12-30] MEDS: HYDROCHLOROTHIAZIDE PO SCH (08:39)
[2017-12-30] MEDS: ALDACTONE PO SCH (08:39)
[2017-12-30] MEDS: CARDIZEM PO SCH ×2 (08:40→20:22)
[2017-12-30] MEDS: COLACE PO SCH ×2 (08:40→20:22)
[2017-12-30] MEDS: TUSSIONEX PO SCH ×2 (08:44→20:21)
[2017-12-30] MEDS: GENTAMICIN SULFATE 70 MG in SODIUM CHLORIDE 50 ML IV SCH (08:44)
--- NOTE | 2017-12-30 10:24 | CONS ---
DATE OF CONSULTATION: 12/24/17 REASON FOR CONSULTATION: 72-year-old white female was seen on consult for general evaluation. The patient has been hospitalized since 12/19/17 with severe chronic lung disease and acute bronchitis. HISTORY OF PRESENT ILLNESS: The patient has been sick times two weeks with shortness of breath and cough. She got better after one week then got worse again with shortness of air and cough. She reported decreased 02 saturation at home with exertion. No improvement with [id number] treatment, inhalers, nebs and 02. PAST MEDICAL HISTORY: COPD - 02 at night BIPAP Hypertension GERD History of pneumonia Hepatic steatosis Vulvar dysplasia, Stage 3 Osteoarthritis hips and lower back Radiation therapy, 2010 Breast implants PAST SURGICAL HISTORY: Bilateral cataract extraction, 2010 Right upper lobectomy, 2010 Breast left lumpectomy, 2010 (malignant) Hysterectomy, 1979 REVIEW OF SYSTEMS: CONSTITUTIONAL: Weakness, fatigue but getting better. No night sweats. No malaise, lethargy. No fever or chills. HEENT: Eyes: No visual changes. No eye pain. No eye discharge. ENT: No sinus drainage. No epistaxis. No sinus pain. No sore throat. No odynophagia. No ear pain. No congestion. RESPIRATORY: Cough mostly nonproductive now but has been productive with thick green sputum and congestion. No hemoptysis. No PND. Shortness of breath on minimal exertion. CARDIOVASCULAR: No angina symptoms. No CHF symptoms. No atypical chest pain for CAD. No palpitations. No orthopnea. GASTROINTESTINAL: Appetite improving. No abdominal pain. No nausea or vomiting. No diarrhea or constipation. No hematemesis. No hematochezia. GENITOURINARY: No dysuria. Urinary incontinence (stress) with coughing. MUSCULOSKELETAL: Osteoarthritis pain, hips and bck. NEUROLOGICAL: No headache. No neck pain. No syncope. No seizures. No dizziness. PSYCHIATRIC: Not anxious. No depression. No suicidal thoughts. No homicidal thoughts. SKIN: Warm and dry. No rash. No lesions. No wounds. ENDOCRINE: No unexplained weight loss. No weight gain. HEMATOLOGIC/LYMPHATIC: No anemia. No purpura. No petechiae. No prolonged or excessive bleeding. No palpable lymph nodes. MEDICATIONS: Protonix 40 mg p.o. daily Albuterol nebs q.i.d. Mucinex twice a day Hyzaar 100/12.5 daily Aldactone 25 every other day Cardizem 60 mg twice a day Proventil inhaler p.r.n. Umeclidinium (Noro Ellipta) ALLERGIES: IODINATED DYE, LATEX (TAPE) SOCIAL/PERSONAL/FAMILY HISTORY: The patient is , lives with . Nonsmoker - stopped in 1985.. Occasional alcohol abuse (wine). Does all activity of daily living. The patient had long hospitalization with a similar problem a couple of years ago from which she improved remarkably. PHYSICAL EXAMINATION: GENERAL: The patient is oriented to time, place and person. VITAL SIGNS: Temperature 98.6, pulse 90, respiratory rate 22, BP 130/80, pulse ox 94% 02 with 2L. Weight 167. HEENT: Head normocephalic, atraumatic. Eyes: Extraocular muscles are intact. Pupils are equal, round and reactive to light and accommodation. Ears: No lesions. Nose appeared normal. Throat: No exudate or erythema. NECK: Supple. No JVD, no carotid bruit. No lymphadenopathy or thyromegaly. LUNGS: Decreased breath sounds with mild wheeze. Percussion note normal. Chest symmetrical. HEART: S1, S2, no S3. No murmurs. No cyanosis or clubbing. No ascites. Pulses: Dorsalis pedis and posterior tibial pulses +1 both sides. ABDOMEN: Soft. Nontender. Bowel sounds active. No CVA tenderness. No mass felt. EXTREMITIES: No pedal edema. Full range of motion of all extremities, equal. NEUROLOGIC: No focal deficit. Cranial nerves II through XII are grossly intact. No headache, no double vision or headache. SKIN: Warm and dry. Intact. Turgor - normal. LYMPHATIC: No palpable lymph nodes/no lymphedema. MUSCULOSKELETAL: Normal joints with no swelling. Muscle tone is normal. LABS: Hemoglobin 11.7, hematocrit 34, WBC 1,400, normal differential. Creatinine 0.8, BUN 17, potassium 3.7. Chest CT - severe emphysema, atherosclerosis. 12/19/17 Room air ABGs 94% sat, p02 70. EKG sinus rhythm. 12/26/17 WBC 13.53, Hgb 11.8, HCT 34.4. Chemistriy - K+ 3.3, Na 133, glucose 138. Sputum culture - Pseudomonas Aeruginosa, Klebsiella oxytoca. ASSESSMENT: 1. ACUTE BRONCHITIS/PLEURITIC PAIN WITH SEVERE CHRONIC LUNG DISEASE WITH HISTORY OF SMOKING. 2. HYPERTENSION 3. COPD 4. CANCER OF LUNG 3. OBESITY WITH BMI OF 30 RECOMMENDATIONS: 1. No further recommendation for now except for counseling for pulmonary rehab done. Will advise pulmonary rehab. 2. Counseling for weight loss done. The patient needs to lose at 15 to 20 lbs of body weight. 3. Continue steroids. 4. Continue antibiotics, Avelox and Cefepime as prescribed. 5. Continue nebs treatment. 6. Anti-reflux measures already taken. 7. Continue diuretic with antihypertensive medication. 8. Chest pain from coughing, pleuritic type. Echo one year ago normal. No need for further workup. 9. Will follow. Thanks for the referral. Condition seems to be improving. The case discussed with attending and also with the . CONDITION: Stable. Thanks for the referral, will follow. KING
--- NOTE | 2017-12-30 10:36 | PN ---
DATE OF VISIT: 12/27/17 The patient did break out in a macular papular rash. This was macular on both buttocks. It has some pruritus. This patient is on two kinds of antibiotics. It was felt that this antibiotic should be discontinued and see how it does. It is hard to tell which antibiotic is causing the problem and that could not be determined in 24 hours, since the rash would probably not disappear and the challenge of one antibiotic is probably not reasonable. Both antibiotics were then discontinued. This patient still has a productive cough and so a sputum culture would be requested. LUNGS: Diminished breath sounds, but no rales or wheezing. HEART: Audible and regular with good tones. PLAN: 1. Discontinue Avelox and Cefepime. If the culture does show that both bacteria are sensitive to Gentamicin or Tobramycin, this medication will most likely be initiated tomorrow. KING
--- NOTE | 2017-12-30 10:40 | PN ---
DATE OF VISIT: 12/28/17 The rash in the abdomen and chest, as well as the buttocks are fading. There are not as red as yesterday. LUNGS: The lungs still has diminished breath sounds, but no rales or wheezing. HEART: Audible and regular with good tones. The patient will be placed on Gentamicin 70 mg IV every 12 hours. The patient' s GFR yesterday was 71. VITAL SIGNS: Not available at noon time. The oximetry saturation was fluctuating between 91 to 93 at 2 liters. MTDD
--- NOTE | 2017-12-30 11:42 | CONS ---
DATE OF SERVICE: 12/25/17 CONSULT FOLLOWUP SUBJECTIVE: 72-year-old white female hospitalized with chronic bronchitis, asthma with exacerbation. The patient seems to be improving some, still wheezing. The patient is sitting by the side of the bed. The patient is up and about. REVIEW OF SYSTEMS: CONSTITUTIONAL: No night sweats. No fatigue, malaise, lethargy. No fever or chills. HEENT: Eyes: No visual changes. No eye pain. No eye discharge. ENT: No runny nose. No epistaxis. No sinus pain. No sore throat. No odynophagia. No ear pain. No congestion. RESPIRATORY: Cough, congestion. No hemoptysis. No PND. CARDIOVASCULAR: No angina symptoms. No CHF symptoms. No atypical chest pain for CAD. No palpitations. No shortness of breath. No orthopnea. GASTROINTESTINAL: No abdominal pain. No nausea or vomiting. No diarrhea or constipation. No hematemesis. No hematochezia. GENITOURINARY: No urgency. No frequency. No dysuria. No hematuria. No obstructive symptoms. No discharge. No pain. No significant abnormal bleeding. MUSCULOSKELETAL: No musculoskeletal pain. No joint swelling. No arthritis. NEUROLOGICAL: No headache. No neck pain. No syncope. No seizures. No dizziness. PSYCHIATRIC: Not anxious. No depression. No suicidal thoughts. No homicidal thoughts. SKIN: No rash. No lesions. No wounds. ENDOCRINE: No unexplained weight loss. No weight gain. HEMATOLOGIC/LYMPHATIC: No anemia. No purpura. No petechiae. No prolonged or excessive bleeding. No palpable lymph nodes. PHYSICAL EXAMINATION: GENERAL: The patient is oriented to time, place and person. VITAL SIGNS: Temperature 98, pulse 80, respiratory rate 18, BP 156/72, pulse ox 95%. HEENT: Head normocephalic, atraumatic. Eyes: Extraocular muscles are intact. Pupils are equal, round and reactive to light and accommodation. Ears: No lesions. Nose appeared normal. Throat: No exudate or erythema. NECK: Supple. No JVD, no carotid bruit. No lymphadenopathy or thyromegaly. LUNGS: Mild expiratory wheeze. Decreased breath sounds. Percussion note normal. Chest symmetrical. HEART: S1, S2, no S3. No murmurs. No cyanosis or clubbing. No ascites. Pulses: Dorsalis pedis and posterior tibial pulses +1 to +2 both sides. ABDOMEN: Soft. Nontender. Bowel sounds active. No CVA tenderness. No mass felt. EXTREMITIES: No edema. Full range of motion of all extremities, equal. NEUROLOGIC: No focal deficit. Cranial nerves II through XII are grossly intact. No headache, no double vision or headache. SKIN: Not dry. Intact. Turgor - normal. LYMPHATIC: No palpable lymph nodes/no lymphedema. MUSCULOSKELETAL: Normal joints with no swelling. Muscle tone is normal. ASSESSMENT: 1. ACUTE BRONCHITIS WITH CHRONIC LUNG DISEASE WITH HISTORY OF ASTHMA. RECOMMENDATIONS: 1. Continue steroids/nebs/antibiotics. Condition is improving. Cardiovascular status seems to be stable. MTDD
[2017-12-30] MEDS: VANCOMYCIN 1 GM in SODIUM CHLORIDE 250 ML IV SCH ×2 (12:49→20:20)
--- NOTE | 2017-12-30 12:49 | ECHO2D ---
Date of Exam: 12/29/17 Ordering Physician: DR. FAITH SADLER Room #: [id number] Reason for Echo: SOB, RESPIRATORY FAILURE M-Mode Normal Adult Results LV Dimensions Normal Adult Results AoV Opening excursions >1.6 >1.6 LVEDD-base- 3.5-5.8 5.0 Ao root dimensions 2.0-3.7 3.3 LVESD-base- 3.1-4.6 L. Atrium dimensions 1.9-3.8 3.9 Post. Wall thickness 0.8-1.1 1.2 IV septum (thickness) 0.7-1.2 1.2 Post. Wall excursion 0.72-1.3 NORMAL Septal motion NORMAL Systolic motion R. Ventricular cavity 1.5-2.0 NORMAL LVEF 60% 65% Paradoxical septal wall motion NORMAL 2-D : 2-D M Mode Echocardiogram was performed using apical four chamber and left parasternal long and short axis views. Mitral, tricuspid and aortic valves appear to be normal. Contractility of the left ventricle seems to be normal, so is the cavity size. Left atrial cavity size and aortic root appear to be normal. There is no pericardial effusion. There is no thrombus noted in the left ventricular or left aortic cavity. No mitral valve prolapse noted. M-MODE: MV: NORMAL AV: NORMAL TV: NORMAL PV: CHAMBER SIZE: NORMAL WALL MOTION: NORMAL PERICARDIUM: NORMAL INTERPRETATION: 1. BORDERLINE LEFT VENTRICULAR HYPERTROPHY 2. NORMAL LEFT VENTRICULAR CONTRACTILITY 3. NORMAL VALVES MTDD
--- NOTE | 2017-12-30 15:36 | CONS ---
The patient has been seen 4 to 5 times. She was seen 12/26/17 [facility]
[2017-12-31] MEDS: SOLU-CORTEF 250 MG IVP SCH ×5 (00:12→23:42)
[2017-12-31] MEDS: DUONEB NEB SCH ×4 (05:02→20:36)
[2017-12-31] MEDS: NYSTATIN ORAL SUSP PO SCH ×4 (05:32→21:38)
[2017-12-31] MEDS: VANCOMYCIN 1 GM in SODIUM CHLORIDE 250 ML IV SCH ×2 (08:24→21:33)
[2017-12-31] MEDS: CARDIZEM PO SCH ×2 (08:27→21:37)
[2017-12-31] MEDS: COZAAR PO SCH (08:28)
[2017-12-31] MEDS: COLACE PO SCH ×2 (08:28→21:37)
[2017-12-31] MEDS: HYDROCHLOROTHIAZIDE PO SCH (08:28)
[2017-12-31] MEDS: K-DUR PO SCH ×3 (08:29→16:59)
[2017-12-31] MEDS: TUSSIONEX PO SCH ×2 (08:30→21:38)
[2017-12-31] MEDS: MUCINEX PO SCH ×2 (08:30→21:37)
[2017-12-31] MEDS: LOVENOX SUBCUT SCH (08:31)
[2017-12-31] MEDS: NON-FORMULARY MEDICATION (Umeclidinium Brm/Vilanterol Tr [Anoro Ellipta 62.5-25 Mcg Inh] 1 IH SCH (08:31)
[2017-12-31] MEDS: FLORASTOR PO SCH (22:41)
[2018-01-01] MEDS: DUONEB NEB SCH ×4 (05:00→20:54)
[2018-01-01] MEDS: SOLU-CORTEF 250 MG IVP SCH ×3 (05:17→17:19)
[2018-01-01] MEDS: NYSTATIN ORAL SUSP PO SCH ×4 (05:37→21:25)
[2018-01-01] MEDS: HYDROCHLOROTHIAZIDE PO SCH (08:21)
[2018-01-01] MEDS: MUCINEX PO SCH ×2 (08:21→21:25)
[2018-01-01] MEDS: K-DUR PO SCH ×3 (08:21→16:57)
[2018-01-01] MEDS: CARDIZEM PO SCH ×2 (08:22→21:26)
[2018-01-01] MEDS: COZAAR PO SCH (08:23)
[2018-01-01] MEDS: ALDACTONE PO SCH (08:23)
[2018-01-01] MEDS: FLORASTOR PO SCH ×2 (08:23→21:25)
[2018-01-01] MEDS: COLACE PO SCH ×2 (08:23→21:26)
[2018-01-01] MEDS: LOVENOX SUBCUT SCH (08:23)
[2018-01-01] MEDS: NON-FORMULARY MEDICATION (Umeclidinium Brm/Vilanterol Tr [Anoro Ellipta 62.5-25 Mcg Inh] 1 IH SCH (08:26)
[2018-01-01] MEDS: VANCOMYCIN 1 GM in SODIUM CHLORIDE 250 ML IV SCH ×2 (08:26→21:25)
[2018-01-01] MEDS: TUSSIONEX PO SCH (08:26)
[2018-01-01] MEDS ORDERED: DECADRON 4 MG/ML SDV IM STA (16:44)
[2018-01-01] MEDS: MAG-OX PO SCH ×2 (16:56→21:26)
[2018-01-01] MEDS: ZOVIRAX TP SCH ×2 (18:32→23:53)
[2018-01-01] MEDS ORDERED: ALBUTEROL 0.083% NEB NEB PRN (23:33)
[2018-01-02] MEDS: DUONEB NEB SCH ×4 (05:10→18:21)
[2018-01-02] MEDS: NYSTATIN ORAL SUSP PO SCH ×4 (05:52→20:34)
[2018-01-02] MEDS: ZOVIRAX TP SCH ×5 (06:02→20:35)
[2018-01-02] MEDS: COZAAR PO SCH (08:52)
[2018-01-02] MEDS: CARDIZEM PO SCH ×2 (08:52→20:33)
[2018-01-02] MEDS: COLACE PO SCH ×2 (08:52→20:34)
[2018-01-02] MEDS: HYDROCHLOROTHIAZIDE PO SCH (08:54)
[2018-01-02] MEDS: FLORASTOR PO SCH ×2 (08:54→20:34)
[2018-01-02] MEDS: K-DUR PO SCH ×3 (08:55→16:46)
[2018-01-02] MEDS: MAG-OX PO SCH (08:57)
[2018-01-02] MEDS: MUCINEX PO SCH ×2 (08:57→20:34)
--- NOTE | 2018-01-02 08:57 | PN ---
DATE OF VISIT: 12/29/17 The patient, today, is alert, responsive and seemingly feeling some better. She is not cyanotic. VITAL SIGNS: Temperature 97.8., pulse 73, blood pressure 141/62. Respiratory rate 20, oxygen saturation 96 at 3 liters. I am not sure why she was given 3. LUNGS: Some few wheeze at the left lower base. Both breath sounds are diminished, right and left. HEART: Normal sinus rhythm. WBC is 12,470, potassium is down to 2.5 and chloride 87. CO2 is higher, now 43 from 32. Blood sugar 137, AST 39, slightly above 37. The patient had an echocardiogram done by Dr. Gooden. I do not have the report on the echocardiogram. [facility]
[2018-01-02] MEDS ORDERED: DECADRON 4 MG/ML SDV IM SCH (09:00)
[2018-01-02] MEDS: NON-FORMULARY MEDICATION (Umeclidinium Brm/Vilanterol Tr [Anoro Ellipta 62.5-25 Mcg Inh] 1 IH SCH (09:03)
[2018-01-02] MEDS: LOVENOX SUBCUT SCH (09:04)
--- NOTE | 2018-01-02 09:04 | PN ---
DATE OF VISIT: 12/30/17 The patient is alert and oriented times four and had ambulated. She claims that she feeling better. VITAL SIGNS: On 12/30/17 at 6 p.m. showed a temperature of 97.8, pulse 78, blood pressure 158/70, respiratory rate 18, oxygen saturation 95 at 2 liters. She only ate 25% of her dinner. She had not been eating very much. LUNGS: The lungs still has diminished breath sounds. No significant wheezing. HEART: Audible and regular. LEGS: No tenderness. The CO2 still is high. Potassium went up slightly to 2.6 after giving 20 mEq of potassium three times a day, plus IV fluids with 40 mEq of potassium. Her E GFR is normal. Calcium normal at 8.6. CO2 today is 43. I advised her to take several deep breaths several times a day and blow is slowly. CONDITION: Stable and maybe better. MTDD
--- NOTE | 2018-01-02 09:12 | PN ---
DATE OF VISIT: 12/31/17 The patient is alert and claims to be feeling better. WBC is 12,860 and the platelet count went down to 97,000 and I don't really what happened. There was no notation whether they were clumps of platelets to reduce the count. The platelet the day before was 184,000. The potassium went down to 2.4, in spite of the oral potassium. Chloride went down to 83. This patient is now getting 40 mEq of potassium orally three times a day. The patient was seen about 9:30 a.m. She seemed to be doing better. LUNGS: The lungs still has diminished breath sounds with some wheezing on the left side, maybe questionable on the right. No rales. HEART: Audible and regular. She is listed as receiving 2 liters of nasal oxygen. WBC is about the same was yesterday at 12,860. Potassium is down to 2.4 in spite of the oral potassium. The platelet count was 97,000 for the . On the it was 184,000. The echocardiogram was read as essentially normal with left ventricular ejection fraction of 65%. This patient is now receiving Vancomycin because of the staph MRSA sputum culture. This patient had not been running any fever and probably would stop the medications. [facility]
--- NOTE | 2018-01-02 09:31 | PN ---
DATE OF VISIT: 01/01/18 The patient is alert and not dyspneic, nor tachypneic. She doesn't feel as well today as yesterday. She did not take Solu-Cortef IV since noon yesterday because she feels hot during the course of the administration of the medication and doesn't feel well. The patient is then given Decadron 4 mg IM this evening. I had not been advised about the medication that the patient refused to take. The Decadron was given and the patient did not have any problems or reactions or similar symptoms that she had with Solu-Cortef. VITAL SIGNS: At 5:32 p.m. showed a temperature of 97.7, pulse 76, blood pressure 156/71, respiratory rate 18, oxygen saturation 93 at 2 liters. LUNGS: Clear to auscultation in both sides with better air exchange. HEART: Audible and regular with good tones. The beta adrenergic medications were discontinued except the DuoNeb. The Beta adrenergic1:29 does produce hypokalemia. This patient is using Anoro Ellipta that she has from home. The oxygen is reduced to one and a half liters per minute instead of two. I told the nurse in charge, Susan, to make sure that nobody increasing that oxygen. We will probably get a Pulmicort nebulizer followed by a mouth rinse each time nebulization is done. Fasting insulin was ordered to see if there is an increased Insulin level that may also have produced the hypokalemia. Tussionex also was discontinued and the patient was advised of this. She is advised to drink as much liquid as she can and cough up the mucus as much as she can. This patient probably will be discharged soon from this facility since she is no longer having problems with wheezing. I will have to make sure that the oxygen level prior to discharge is livable, meaning above 90 at room air. [facility]
[2018-01-02] MEDS: VANCOMYCIN 1 GM in SODIUM CHLORIDE 250 ML IV SCH ×2 (09:33→20:34)
[2018-01-02] MEDS: PULMICORT 0.5 MG/2 ML NEB SCH (18:22)
[2018-01-03] MEDS: PULMICORT 0.5 MG/2 ML NEB SCH (05:15)
[2018-01-03] MEDS: DUONEB NEB SCH (05:15)
[2018-01-03 05:33] VITALS: BP 156/72; TEMP 98.1
[2018-01-03] MEDS: ZOVIRAX TP SCH ×2 (05:46→10:07)
[2018-01-03] MEDS: NYSTATIN ORAL SUSP PO SCH ×2 (05:46→10:04)
--- NOTE | 2018-01-03 09:58 | PN ---
DATE OF VISIT: 01/02/18 The patient is alert and still complains of having some reaction to the steroid. She was given 4 mg of Decadron. I decided to stop the steroid injectable. She had been on Pulmicort nebulizer at home and this patient will be given Pulmicort nebulizer to be given every 12 hours followed by thorough rinsing of the mouth after each treatment. LUNGS: Today, 01/02/18, diminished breath sounds, but no rales or wheezing. HEART: Normal sinus rhythm. The patient's CO2 has decreased from 44 to 39. The potassium now is normal at 4. It was 2.7 yesterday. The Vancomycin trough is 13.08. Liver-AST and ALT normal. The E GFR is 100. Arterial blood gases ordered for room air after without any oxygen supplemental for 2 hours. Oxygen saturation was 93, pH 7.531 , metabolic alkalosis. That might improve after the chlorides also has gotten back to normal. The chlorides are 88. The CO2 is 46.3, upper normal 45. PO2 60, way below 85. HCO3 is elevated, as well as the total CO2 at 40. This patient is given back oxygen at 1 liter per minute. She does have oxygen at home, which she uses during the night. I had talked to her again in the presence of her that she needed to lose weight and has to do that gradually and slowly. She had lost some weight, but very minimal. She is 164 pounds today, 01/02/2018. We will try to make sure that she was weighed on the same scale. If she feels better tomorrow, that this patient probably will be discharged home to be continued on the medications that she is receiving. KING
[2018-01-03] MEDS: VANCOMYCIN 1 GM in SODIUM CHLORIDE 250 ML IV SCH (10:04)
[2018-01-03] MEDS: FLORASTOR PO SCH (10:05)
[2018-01-03] MEDS: ALDACTONE PO SCH (10:05)
[2018-01-03] MEDS: HYDROCHLOROTHIAZIDE PO SCH (10:05)
[2018-01-03] MEDS: COLACE PO SCH (10:05)
[2018-01-03] MEDS: CARDIZEM PO SCH (10:05)
[2018-01-03] MEDS: COZAAR PO SCH (10:05)
[2018-01-03] MEDS: LOVENOX SUBCUT SCH (10:06)
[2018-01-03] MEDS: MUCINEX PO SCH (10:06)
[2018-01-03] MEDS: K-DUR PO SCH (10:07)
[2018-01-03] MEDS: NON-FORMULARY MEDICATION (Umeclidinium Brm/Vilanterol Tr [Anoro Ellipta 62.5-25 Mcg Inh] 1 IH SCH (10:07)
--- NOTE | 2018-01-05 09:24 | CONS ---
DATE OF SERVICE: 12/29/17 CONSULT FOLLOWUP SUBJECTIVE: The patient is feeling better and coughing much less. REVIEW OF SYSTEMS: CONSTITUTIONAL: No night sweats. No fatigue, malaise, lethargy. No fever or chills. HEENT: Eyes: No visual changes. No eye pain. No eye discharge. ENT: No runny nose. No epistaxis. No sinus pain. No sore throat. No odynophagia. No ear pain. No congestion. RESPIRATORY: No cough, no congestion. No hemoptysis. CARDIOVASCULAR: No angina symptoms. No CHF symptoms. No atypical chest pain for CAD. No palpitations. No shortness of breath. GASTROINTESTINAL: No abdominal pain. No nausea or vomiting. No diarrhea or constipation. No hematemesis. No hematochezia. GENITOURINARY: No urgency. No frequency. No dysuria. No hematuria. No obstructive symptoms. No discharge. No pain. No significant abnormal bleeding. MUSCULOSKELETAL: No musculoskeletal pain. No joint swelling. No arthritis. NEUROLOGICAL: No headache. No neck pain. No syncope. No seizures. No dizziness. PSYCHIATRIC: Not anxious. No depression. No suicidal thoughts. No homicidal thoughts. SKIN: No rash. No lesions. No wounds. ENDOCRINE: No unexplained weight loss. No weight gain. HEMATOLOGIC/LYMPHATIC: No anemia. No purpura. No petechiae. No prolonged or excessive bleeding. No palpable lymph nodes. PHYSICAL EXAMINATION: HEENT: Head normocephalic, atraumatic. Eyes: Extraocular muscles are intact. Pupils are equal, round and reactive to light and accommodation. Ears: No lesions. Nose appeared normal. Throat: No exudate or erythema. NECK: Supple. No JVD, no carotid bruit. No lymphadenopathy or thyromegaly. LUNGS: Decreased breath sounds with good air entry with mild expiratory wheeze. Percussion note normal. Chest symmetrical. HEART: S1, S2, no S3. No murmurs. No cyanosis or clubbing. No ascites. Pulses: Dorsalis pedis and posterior tibial pulses +1 to +2 both sides. ABDOMEN: Soft. Nontender. Bowel sounds active. No CVA tenderness. No mass felt. EXTREMITIES: No edema. Full range of motion of all extremities, equal. NEUROLOGIC: No focal deficit. Cranial nerves II through XII are grossly intact. No headache, no double vision or headache. SKIN: Not dry. Intact. Turgor - normal. LYMPHATIC: No palpable lymph nodes/no lymphedema. MUSCULOSKELETAL: Normal joints with no swelling. Muscle tone is normal. ASSESSMENT: 1. Chronic respiratory failure with chronic lung disease seems to be getting under control. The patient definitely has evidence of bronchiolitis with small airway disease which are infected RECOMMENDATIONS: 1. Echocardiogram was done to rule out cardiac problems. The patient has borderline LVH other normal valves, normal LV contractility CONDITION: Stable MTDD
--- NOTE | 2018-01-05 09:25 | CONS ---
Sulema Garcia was seen at least 5 times on Consult. The last time the patient was seen was on 12/29/17. [facility]
--- NOTE | 2018-01-09 13:49 | DS ---
PATIENT IDENTIFICATION: 72 year old female was seen at the office for cough. HOSPITAL COURSE: She was initially admitted 12/19/17 because of increasing shortness of breath, cough repetitive and hypoxemia with bilateral expiratory wheezing as well as the anterior chest. The patient was seen a week prior to 12/19/17. The patient was treated with steroids intervenously as well as antibiotics consisting of Ceftriaxone 2grams intervenously daily, Solu-Cortef 250mg every 6 hours, prophylactic Lovenox 40mg daily. Sputum culture did grow Klebsiella Oxytoca sensitive to Ceftriaxone and the next sputum culture did grow pseudomonas aeruginosa sensitive to Cipro and Levofloxacin. Also sensitive to Cefepime. The patient was medicated with Moxifloxacin 400mg daily as well as Cefepime 2 grams intervenously Q 8 hours. The patient continued to have wheezing and shortness of breath. The patient was discharged from acute care to transitional for continued intervenous antibiotics and steroid. The patient was then discharged 12/26/17 and admitted to transition on 12/26/17. The patient was continued essentially on the same medication. Culture done on 12/27/17 showed Staph Epidermidis of the culture this is sensitive to a host of medication. The patient was placed on Vancomycin 1 gram intervenously Q 12 hours. The Cefepime and Moxifloxacin was discontinued. The patient did complain of not feeling with Solu-Cortef and so the medication was discontinued and was given Decadron intermuscularly every 12 hours. The patient had the same problems with the Decadron and so that also was discontinued. The patient was getting shaky with the steroid injection. Chest CT on admission showed no acute processes in the lung except for the severe emphysema. A repeat CT chest showed no acute infectious process. The patient had remained afebrile during her entire transitional care hospital stay her blood pressure had fluctuated to what is acceptable normal to slightly above normal. The patient's oxygen saturation was fluctuating between 92-97 with 2 liters of oxygen. The patient's potassium was lower as low as 2.4. The medication reviewed and this was probably triggered by the Beta Agonist medication and so the DUO NEB was discontinued as well as the ProAir. The patient also was given 40meq of Potassium three times a day initially it was 20. The Potassium however did not rise to normal with a 20meq three times a day with 40meq intervenously with the fluids. On 01/02/18 however the Potassium did rise from 2.7 the day before to 4.0. The patient's EGFR were normal and was 100 on the day before discharge and 86 on the day of discharge. The Potassium level at that time was 5.4, Chloride 91, sodium 130. The patient on the day of discharge was alert and feeling good. I asked her how she feels and she put her thumbs up. She was not dyspneic or tachypneic. LUNGS: Clear to auscultation but diminished and no wheezing HEART: Audible and regular with good tones ABDOMEN: Nontender FINAL DIAGNOSES: 1. Acute exacerbation of chronic bronchitis 2. Sputum positive for Klebsiella Oxytoca, Pseudomonas aeruginosa and MRSA 3. Hypertension 4. History of chronic tobacco use and abuse stopped 1985 5. 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 History of upper lobe Adenocarcinoma treated with lobectomy 7. Vulvar malignancy treated with limited vulvectomy 8. History of sleep apnea, not using CPAP 9. History of GERD 10.History of Dinora Arredondo virus and Cytomegalovirus infection 11.Elevated BMI 29.6, This patient was advised to reduce weight and follow a progressive exercise PLAN: 1. See me a week from today 2. Use Albuterol Sulfate Nebulizer 0.083% 3cc Q 6 hours 3. Albuterol Sulfate two puffs every 6 hours as needed for wheezing 4. Diltazem 60mg twice a day 5. Fluticasone/Umeclidi/Vilanter if available or else use use an Anoro Ellipta. 6. Continue Guaifenesin 1200mg twice a day, Losartan 100-12.5mg daily, Protonix 40mg daily, Aldactone 25mg every other day and Anoro Ellipta one inhalation daily but do not use if Trelegy is available. 7. Use oxygen as needed with ambulation or at night 8. Use air purifier. The patient's has one in the bedroom now as well as one in the living room. 9. Return to the emergency room if more problems otherwise see me in one week. 10.No antibiotic was given and explained to the patient that I do believe she has enough antibiotic on board including the antibiotic that was used for the staph aureus Methacycline resistant. PROGNOSIS: Guarded. MTDD
== END 2018-01-03 14:13 | disposition home or self-care (01) | DRG 192 ==
LOC: MEDSURG A 17:12
PROVIDERS: ADMIT General Practice; ATTEND General Practice
DX: J44.1 Chronic obstructive pulmonary disease with (acute) exacerbation (principal); B96.5 Pseudomonas (aeruginosa) (mallei) (pseudomallei) as the cause of diseases classified elsewhere; B96.1 Klebsiella pneumoniae [K. pneumoniae] as the cause of diseases classified elsewhere; I10 Essential (primary) hypertension; Z87.891 Personal history of nicotine dependence; Z85.3 Personal history of malignant neoplasm of breast; Z85.118 Personal history of other malignant neoplasm of bronchus and lung; Z85.89 Personal history of malignant neoplasm of other organs and systems; G47.30 Sleep apnea, unspecified; K21.9 Gastro-esophageal reflux disease without esophagitis; Z68.29 Body mass index [BMI] 29.0-29.9, adult
CPT/HCPCS: 36415; 80053; 80069; 80170; 80202; 82803; 83525; 83735; 83880; 85007; 85025; 87070; 87186; 94640; 97802

== ENCOUNTER 2018-04-07 08:13 | Outpatient (CLI) ==
[2013-04-25 07:59] VITALS: TEMP 98
== END 2018-04-07 08:14 | disposition home or self-care (01) ==
LOC: LAB 08:13
PROVIDERS: ATTEND General Practice
DX: E88.81 Metabolic syndrome and other insulin resistance (principal); I10 Essential (primary) hypertension; Z79.899 Other long term (current) drug therapy; Z85.118 Personal history of other malignant neoplasm of bronchus and lung; Z85.3 Personal history of malignant neoplasm of breast
CPT/HCPCS: 36415; 80053; 80061; 81001; 85025

== ENCOUNTER 2018-07-10 10:28 | Outpatient (CLI) ==
[2013-04-25 07:59] VITALS: TEMP 98
== END 2018-07-10 10:29 | disposition home or self-care (01) ==
LOC: FCC-LAB 10:28
PROVIDERS: ATTEND General Practice
DX: E88.81 Metabolic syndrome and other insulin resistance (principal); I10 Essential (primary) hypertension; J44.9 Chronic obstructive pulmonary disease, unspecified; Z85.118 Personal history of other malignant neoplasm of bronchus and lung; Z85.3 Personal history of malignant neoplasm of breast; Z79.899 Other long term (current) drug therapy
CPT/HCPCS: 36415; 80053; 80061; 81001; 85025

== ENCOUNTER 2018-09-29 13:36 | Outpatient (CLI) ==
[2013-04-25 07:59] VITALS: TEMP 98
--- NOTE | 2018-09-29 17:20 | DI ---
EXAM: PA and lateral views the chest HISTORY: History breast cancer COMPARISON: 12/26/2017 CT, 09/28/2017 chest x-ray FINDINGS: The lungs are hyperexpanded. Right lung surgical clips and suture are again seen. Breast implants are again seen. Minimal left apical scarring is again seen. No focal consolidation, pleural effusion or pneumothorax is seen. The cardiomediastinal silhouette is within normal limits. There is calcified atherosclerotic plaque of the aorta. IMPRESSION: No acute cardiopulmonary findings. Postoperative changes of the right lung. Emphysematous changes.
== END 2018-09-29 13:37 | disposition home or self-care (01) ==
LOC: RAD 13:36
PROVIDERS: ATTEND Specialist
DX: Z85.118 Personal history of other malignant neoplasm of bronchus and lung (principal)

== ENCOUNTER 2018-10-04 15:20 | Inpatient (IN) ==
[2018-10-04 15:57] VITALS: BMI 31.4
[2018-10-04] MEDS ORDERED: PROAIR HFA IH PRN (16:08)
--- NOTE | 2018-10-04 17:02 | CT ---
EXAM: CT abdomen pelvis without contrast HISTORY: Abdominal pain COMPARISON: CT abdomen pelvis 09/03/2013 TECHNIQUE: Serial axial images of the abdomen pelvis were performed from the lung bases through the inferior pelvis without contrast. These were viewed in multiple planes. FINDINGS: Lung bases demonstrate moderate emphysema. Evaluation is limited due to lack of contrast. The level is unremarkable. Gallbladder has been rese cted. The adrenal glands are unremarkable. The kidneys are unremarkable. The spleen is normal. Pa ncreas is normal. The stomach is distended. The small bowel is unremarkable. The colon demonstrates thickening and inflammatory stranding in the sigmoid colon with multiple diverticuli consistent with diverticulitis. Urinary bladder is distende d. There is no free air or free fluid. There is mild atherosclerotic disease. The osseous structur es demonstrate degenerative disease of the spine. IMPRESSION: Sigmoid diverticulitis without free air or abscess.
[2018-10-04] MEDS: MUCINEX PO SCH ×2 (20:11→20:12)
[2018-10-04] MEDS ORDERED: MAXIPIME IV ONE (20:23)
[2018-10-04] MEDS ORDERED: FLAGYL 500 MG/100 ML 100 ML IV ONE (20:23)
[2018-10-04] MEDS: D5%-NS-KCL 20 MEQ/L IV SOL 1,000 ML IV SCH (20:26)
[2018-10-04] MEDS: MAXIPIME 2 GM in SODIUM CHLORIDE 100 ML IV SCH ×2 (20:26→20:40)
[2018-10-04] MEDS ORDERED: NON-FORMULARY MEDICATION (Guaifenesin [Mucinex] 1,200 MG) PO SCH (21:00)
[2018-10-04] MEDS: FLAGYL 500 MG/100 ML 500 MG in PREMIX 100 ML NS 1 BAG IV SCH ×2 (22:15→22:16)
[2018-10-05] MEDS ORDERED: FLAGYL 500 MG/100 ML 100 ML IV ONE (04:27)
[2018-10-05] MEDS ORDERED: MAXIPIME IV ONE (04:27)
[2018-10-05] MEDS ORDERED: PROTONIX ONE (04:28)
[2018-10-05] MEDS: MAXIPIME 2 GM in SODIUM CHLORIDE 100 ML IV SCH ×3 (04:33→21:24)
[2018-10-05] MEDS: PROTONIX PO SCH (05:55)
[2018-10-05] MEDS: FLAGYL 500 MG/100 ML 500 MG in PREMIX 100 ML NS 1 BAG IV SCH ×3 (05:56→20:11)
[2018-10-05] MEDS: HYDROCHLOROTHIAZIDE PO SCH (08:16)
[2018-10-05] MEDS: MUCINEX PO SCH ×2 (08:17→20:11)
[2018-10-05] MEDS: COZAAR PO SCH (08:17)
[2018-10-05] MEDS: NON-FORMULARY MEDICATION (Umeclidinium Brm/Vilanterol Tr [Anoro Ellipta 62.5-25 Mcg Inh] 1 IH SCH (08:19)
[2018-10-05] MEDS: [UNRECOGNIZED DRUG - OTHER] PO SCH ×2 (08:54→08:56)
[2018-10-05] MEDS ORDERED: NON-FORMULARY MEDICATION (Losartan/Hydrochlorothiazide [Losartan-Hctz 100-12.5 Mg Tab] 1 E PO SCH (09:00)
[2018-10-05] MEDS: D5%-NS-KCL 20 MEQ/L IV SOL 1,000 ML IV SCH (12:00)
--- NOTE | 2018-10-05 14:32 | HP ---
DATE OF SERVICE: 10/04/18 CHIEF COMPLAINT: Lower abdominal pain above the symphysis. SOURCE OF HISTORY: Patient, reliability good. HISTORY OF PRESENT ILLNESS: The patient did experience pain in the lower abdomen just above the symphysis. It began two days ago and had been increasing in intensity. The patient denied any nausea or anorexia or diarrhea at this time and no fever. The patient on examination at the office had some significant tenderness in the left lower quadrant. The patient was felt to have an acute diverticulitis, probably sigmoid. Because of the increasing pain , admission was felt necessary for IV antibiotics to be continued as an outpatient once the patient's pain has decreased in intensity. PAST PERSONAL HISTORY: The patient has chronic obstructive pulmonary disease with intermittent exacerbation requiring hospitalization. This patient also is followed by a ship mate for this problem. She had a few admission with regards to this problem. She also had left breast carcinoma treated with wide excision with radiation. She also had right upper lobe carcinoma resected. She had a limited lobectomy for carcinoma done in [place], [place] in 2000. Cataract extraction 2010, history of pneumonitis several times in the past, hypertension , GERD, chronic tobacco use and stopped in 1985, persistent elevated BMI and total abdominal hysterectomy 1979. The patient had bilateral breast implant. FAMILY HISTORY: Brother had colon carcinoma, liver and lung. Father had colon and bladder carcinoma. Family history of myocardial infarction. Some members of the maternal side of the family had cirrhosis of the liver. SOCIAL HISTORY: The patient is and resides with her . She stopped smoking in 1985. 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 MEDICATIONS: Prior to this admission Protonix 40 mg daily, Mucinex 1200 mg twice a day, ProAir two puffs every 6 hours prn, Anoro Ellipta 62.5/25 mcg, one inhalation daily, Losartan/ Hydrochlorothiazide 100/12.5 mg daily, Aldactone 25 mg daily, Over the counter medications. ALLERGIES: Azithromycin, Iodine contrast, oral and IV, Latex, (adhesive). REVIEW OF SYSTEMS: CONSTITUTIONAL: The patient denied any fever or chills or fatigue. GATE PERSON: No headaches and no ataxia. No syncopal episodes or seizure disorder. VISUAL: Denies blurred vision, double or loss of vision. AUDITORY: Hearing is adequate. Denies any tinnitus, pain or drainage. RESPIRATORY: The patient had no cough, no shortness of breath with usual exertion and no hemoptysis. This patient is known to have chronic obstructive lung disease, as well as most likely asthma. She is being followed by a ship mate. CARDIOVASCULAR: Denies any chest tightness or chest pain. GASTROINTESTINAL: No nausea, anorexia or dysphagia. This patient does have abdominal pain aggravated by motion or bending over. No diarrhea. GENITOURINARY: Denies any pain on urination. No urgency or frequency. MUSCULOSKELETAL: No significant joint pains. ENDOCRINE: Elevated BMI, but no polydipsia or polyuria. INTEGUMENT: Denies any rash or pruritus or ecchymosis. HEMATOLOGIC: Negative. PSYCHIATRIC: Affect is normal and cheerful. PHYSICAL EXAMINATION: GENERAL: We have a 73 year old female admitted to the hospital because of lower abdominal pain with marked tenderness in the left lower quadrant. The bowel sounds were active. The pain began some two days ago and persisted with increasing intensity. VITAL SIGNS: On admission showed a temperature 98.1, pulse 97, blood pressure 148/61, respiratory rate 20, oxygen saturation 98 at room air, 5'3", 177 pounds and 13 ounces, BMI 31.5. HEAD: Unremarkable. Scalp with no active dermatitis. Face symmetrical and equal with no facial weakness. The patient denies any tenderness in the frontal or maxillary sinus areas to palpation under pressure. EYES: Pupils equal/reactive to light, round. Conjunctivae not pale. Sclerae not icteric. MOUTH: Unremarkable. THROAT: No inflammation, tumors or exudates. NECK: No masses. No bruit. No tenderness. No rigidity. CHEST: Essentially symmetrical and equal with good expansion. LUNGS: Breath sounds are slightly diminished on both sides. No rales or wheezing. HEART: Audible and regular with good tones. No murmurs. ABDOMEN: Protuberant, soft with marked tenderness in the left lower quadrant, much less on the right. The bowel sounds are active. EXTERNAL GENITALIA: Not examined. RECTAL AND PELVIC: Not performed. LOWER EXTREMITIES: Symmetrical and equal with no significant edema. UPPER EXTREMITIES: Symmetrical and equal. ASSESSMENT: 1. SIGMOID DIVERTICULITIS 2. CHRONIC OBSTRUCTIVE PULMONARY DISEASE ON MEDICATION 3. GERD 4. HYPERTENSION 5. ELEVATED BMI TIME SPENT: GREATER THAN 65 MINUTES MTDD
[2018-10-06] MEDS: FLAGYL 500 MG/100 ML 500 MG in PREMIX 100 ML NS 1 BAG IV SCH ×2 (05:10→12:08)
[2018-10-06] MEDS: PROTONIX PO SCH (05:42)
[2018-10-06] MEDS: MAXIPIME 2 GM in SODIUM CHLORIDE 100 ML IV SCH ×2 (06:27→14:19)
[2018-10-06] MEDS ORDERED: ALDACTONE PO SCH (09:00)
[2018-10-06] MEDS: [UNRECOGNIZED DRUG - OTHER] PO SCH ×2 (09:21)
[2018-10-06] MEDS: NON-FORMULARY MEDICATION (Umeclidinium Brm/Vilanterol Tr [Anoro Ellipta 62.5-25 Mcg Inh] 1 IH SCH (09:21)
[2018-10-06] MEDS: COZAAR PO SCH (09:24)
[2018-10-06] MEDS: HYDROCHLOROTHIAZIDE PO SCH (09:24)
[2018-10-06] MEDS: MUCINEX PO SCH (09:24)
--- NOTE | 2018-10-06 13:49 | PN ---
DATE OF SERVICE: 10/05/18 SUBJECTIVE: The patient is alert, oriented times four, not dyspneic or tachypneic. She is feeling better. She doesn't have as much pain when she moves. She had significant pain with changes of position when she was at the office. The lungs have diminished breath sounds but no rales. Heart is audible with good tones. The abdomen is protuberant and the tenderness in the left lower quadrant is less. CBC today now has a normal WBC of 6,410. It was 11,180 yesterday. Sodium and chloride also had improved. GFR did increase to 92 from 76. Sugar is 98.7 from 124.5 yesterday. Vital signs at 6 p.m. today showed a temperature of 98, pulse 72, blood pressure 122/59, respiratory rate 18, oxygen saturation 100 on 2L. The patient does use oxygen at night. She told me she was quite cold this afternoon and used so many blankets. I told her to avoid being chilly while in the room and to ask for more blankets if needed. Will order a fasting insulin as well as plus C-peptide level fasting. The IV will be discontinued. MATTHIASD
[2018-10-06 13:59] VITALS: BP 124/70; TEMP 98.6
--- NOTE | 2018-10-09 11:41 | DS ---
DATE OF SERVICE: 10/06/18 PATIENT IDENTIFICATION: 73 year old female was seen initially in the office because of lower abdominal pain aggravated by movement since about two days prior to presentation. The patient had not had any fever or diarrhea or pain on urination. The patient on examination, however, had a markedly tender left lower quadrant with no palpable mass. The bowel sounds were active. The lungs were clear to auscultation, but the breath sounds were diminished. The heart with normal sinus rhythm. The patient was felt to have an acute diverticulitis, most likely sigmoid and this was confirmed by the CT scan of the abdomen and pelvis without contrast. HOSPITAL COURSE: Initial CBC showed a slightly elevated WBC 11,180, slightly elevated neutrophils 8.4, chemistry showed slightly lower sodium and chloride, which probably is chronic, as well as potassium. The E GFR was 76 with a BUN of 11.8, creatinine 0.75. Nonfasting blood sugar on admission 124.5 mg %. The patient is not diabetic. The fasting insulin is 20.4, within normal and the C- Peptide is 1.6, normal is 1.1 to 4.4. BNP, Pro BNP was normal at 84.3. Urinalysis slightly abnormal, but asymptomatic. The patient was treated with Flagyl 500 mg IV every 8 hours and Cefepime 2 grams IV every 8 hours. The patient on the following day, 10/05/2018, still had some pain, but no longer aggravated by movement. Palpation revealed much less tenderness in the left lower quadrant done the day before. The bowel sounds were active. The lungs remained clear to auscultation, although diminished breath sounds. Lower extremities with no tenderness in the calf muscles. The patient had been more active and mobile. Repeat CBC on 10/05/2018 now shows a normal WBC 6,410 from 11,180. The hemoglobin is down slightly probably due to hydration. The sodium , potassium and chlorides are now close to normal, if not normal. Blood sugar fasting was normal at 98.7. The patient was feeling better and was given a regular diet on the morning of . The patient did eat about 25% of the dinner. The patient at the time fo discharge was alert, ambulatory with movement of all extremities and no significant pain. VITAL SIGNS: Temperature 98.6, pulse 86, blood pressure 124/70, respiratory rate 18, oxygen saturation 99 at room air. LUNGS: Diminished breath sounds. No rales or wheezing. HEART: Normal sinus rhythm. ABDOMEN: Protuberant with minimal tenderness in the left lower quadrant. It required a difficulty for patient to illicit some tenderness. The patient is then discharged today with the following prescriptions: 1. Flagyl 500 mg tablet #21, one three times a day. 2. Omnicef 300 mg capsule #14, one twice a day. 3. Resume previous medications. 4. Do not eat any salad for now. Eat vegetables, but fully cooked. 5. See me 10/10/2018 or 10/11/2018. Please call the office for time. 6. The patient was further advised to see me sooner than 10/10 or 10/11 if she has any concerns. FINAL DIAGNOSES: 1. ACUTE SIGMOID DIVERTICULITIS, IMPROVED 2. CHRONIC OBSTRUCTIVE PULMONARY DISEASE, MODERATELY SEVERE 3. HISTORY OF GERD ON MEDICATION 4. HISTORY OF HYPERTENSION, CONTROLLED 5. ELEVATED BMI PROGNOSIS: Guarded. TIME SPENT: GREATER THAN 30 MINUTES MTDD
--- NOTE | 2018-10-09 12:59 | PN ---
DATE OF VISIT: 10/04/18 The patient is seen tonight at 7:40 p.m. in her room. The patient is alert and cheerful. I did tell her that the CT scan of the abdomen does show sigmoid diverticulitis. She will be given two kinds of antibiotics consisting of Cefepime 2 grams every 8 hours and Flagyl 500 mg every 8 hours. Once the pain has subsided and the tenderness is less, that she would most likely be sent home with an oral medication. The anterior tibials are present, but the posterior tibials could not be found. There is no tenderness in the calf muscles. The CBC showed minimal leukocytosis. The sodium and chlorides were lower. This patient is given a Dextrose 5% in normal saline with 20 KCL, plus MVI to run at 83 cc per hour. Procalcitonin is less than 0.05. The NT Pro BNP is 84.3. The E GFR is 76. We will repeat the CBC and CMP tomorrow. Her urinalysis is normal. MATTHIASD
== END 2018-10-06 18:15 | disposition home or self-care (01) | DRG 392 ==
LOC: MEDSURG B 15:20
PROVIDERS: ADMIT General Practice; ATTEND General Practice
DX: K57.92 Diverticulitis of intestine, part unspecified, without perforation or abscess without bleeding (principal); K21.9 Gastro-esophageal reflux disease without esophagitis; J44.9 Chronic obstructive pulmonary disease, unspecified; I10 Essential (primary) hypertension; Z68.31 Body mass index [BMI] 31.0-31.9, adult
CPT/HCPCS: 36415; 80053; 81001; 83525; 83880; 84145; 84681; 85025; 87040; 87086; 97802

== ENCOUNTER 2019-03-05 07:56 | Outpatient (CLI) ==
[2013-04-25 07:59] VITALS: TEMP 98
[2018-11-20 15:22] VITALS: BMI 31.6
== END 2019-03-05 07:57 | disposition home or self-care (01) ==
LOC: LAB 07:56
PROVIDERS: ATTEND General Practice
DX: E88.81 Metabolic syndrome and other insulin resistance (principal); I10 Essential (primary) hypertension; J44.9 Chronic obstructive pulmonary disease, unspecified; Z85.118 Personal history of other malignant neoplasm of bronchus and lung; Z79.899 Other long term (current) drug therapy
CPT/HCPCS: 36415; 80053; 80061; 81001; 85025

== ENCOUNTER 2019-03-20 09:47 | Outpatient (CLI) ==
[2013-04-25 07:59] VITALS: TEMP 98
[2018-11-20 15:22] VITALS: BMI 31.6
--- NOTE | 2019-03-20 10:45 | DI ---
EXAM: Two views of the chest. History: Chronic obstructive pulmonary disease Comparison: Chest radiograph 11/21/2018 Findings: Heart size is normal.. No focal consolidation. No appreciable pleural fluid and no pneum othorax. Atherosclerotic vascular calcifications. No acute osseous abnormalities. Postsurgical livan nges within the right upper lung again noted. Calcified left breast implant shell. Impression: No acute cardiopulmonary process. Chronic obstructive pulmonary disease. No change com pared to the prior study
--- NOTE | 2019-03-20 10:50 | DEXA ---
EXAM: Bone densitometry. History: Postmenopausal. Findings: Evaluation of the lumbar spine reveals a total bone mineral density of 0.896 grams per centimeter squ ared with T-score of negative 2.4. Evaluation of the left hip reveals a total bone mineral density of 0.800 grams per centimeter squared with T-score of negative 1.6. Evaluation of the right hip reveals a total bone mineral density of 0.727 grams per centimeter square d with T-score of negative 2.2. FRAX: 10-year probability for major osteoporotic fracture is 18.6% and 6.5% for hip fracture. Impression: 1. Osteopenia of the lumbar spine. 2. Osteopenia of bilateral hips
== END 2019-03-20 09:48 | disposition home or self-care (01) ==
LOC: RAD 09:47
PROVIDERS: ATTEND Specialist
DX: Z78.0 Asymptomatic menopausal state (principal); J44.9 Chronic obstructive pulmonary disease, unspecified

== ENCOUNTER 2019-07-21 14:34 | Emergency (ER) ==
[2019-07-21 14:43] VITALS: BP 157/119; TEMP 98; BMI 30.5
--- NOTE | 2019-07-21 16:27 | CT ---
Exam: CT of the chest without intravenous contrast. Comparison: Chest x-ray performed 03/20/2019. Reason for exam: Hemoptysis. Chest pain, history lung and breast cancer, hip surgery 1 week ago. R eported allergy to IV dye FINDINGS: Marked emphysematous disease is seen throughout the lung parenchyma. Bibasilar atelectasi s/pneumonia. The heart is not enlarged. Operative changes are seen after breast implantation surgery. Atherosclerotic disease is seen within the aorta and distal arterial vasculature. Diverticular disease is seen within the partially imaged colon without surrounding inflammatory torrez e. No suspicious appearing osteoblastic or osteolytic lesion. Similar appearing nodularity is seen lisa cent to the right breast implant on axial image number 25 likely vascular Impression: 1. Bibasilar atelectasis/pneumonia in the setting of marked chronic emphysematous disease. 2. Similar appearing operative changes after bilateral breast implant surgery.
--- NOTE | 2019-07-21 17:41 | ED.PDOC ---
General ED Provider: Dr. NORM GERMAIN Chief Complaint: Cough Stated Complaint: hemopatsis onset this afternoon. pt has been on the lovenox after a left hip operation Time Seen by Physician: 14:40 Mode of Arrival: Ambulance Information Source: Patient Exam Limitations: No limitations [facility] T[facility] Documentation Reviewed and Agree: Yes Does patient meet sepsis criteria?: No System Inflammatory Response Syndrome: Not Applicable Sepsis Protocol: For patient's 13 years and over: Temp is 96.8 and below OR 101 and greater Pulse >90 BPM Resp >20/minute Acutely Altered Mental Status Are patient's symptoms suggestive of a new infection, such as: -Pneumonia -Skin, Soft Tissue -Endocarditis -UTI -Bone, Joint Infection -Implantable Device -Acute Abdominal Infection -Wound Infection -Meningitis -Blood Stream Catheter Infection -Unknown Hematological Complaint Exam - Sickle Cell Crisis Complaint/Exam Patient Complains of: Reports: Unknown (hemoptasis). Denies: Pain, Fever, SS Disease, SC Disease, Sickle Beta-Thalassemia Onset/Duration: today 3 episodes mild suputm tinged blood Symptoms Are: Resolved Timing: Intermittent Episodes Lasting: Minutes Initial Severity: Mild Current Severity: Mild Location: Present: Chest Aggravating: Reports: None (coughing none were spontanous adelaida or brisk bleeding.) Alleviating: Reports: None (spontanous) Associated Signs and Symptoms: Reports: Cough. Denies: Fever, Short of air, Chest pain, Lethargy, Weakness, Confusion, Nausea, Vomiting, Joint pain, Extremity pain Current Antibiotics: No Current Analgesics: No Related Surgical History: None Complaint-Specific Findings: Absent: Icterus, Jaundice, Joint swelling, Pallor Differential Diagnoses: Other (hemoptasis due to factor Xa inhibitor or pulmonary embolism, pneumonia) Review of Systems - Review Of Systems Constitutional: Reports: No symptoms Eyes: Reports: No symptoms Ears, Nose, Mouth, Throat: Reports: No symptoms Respiratory: Reports: Other (hemmoptasis) Cardiac: Reports: No symptoms GI: Reports: No symptoms : Reports: No symptoms Musculoskeletal: Reports: No symptoms Skin: Reports: No symptoms Neurological: Reports: No symptoms Endocrine: Reports: No symptoms Hematologic/Lymphatic: Reports: No symptoms All Other Systems: Reviewed and Negative Past Medical History - Past Medical History Previously Healthy: No Endocrine: Reports: None Cardiovascular: Reports: Hypertension Respiratory: Reports: COPD Hematological: Reports: None Gastrointestinal: Reports: None Genitourinary: Reports: None Neuro/Psych: Reports: None Musculoskeletal: Reports: None Cancer: Reports: None Last Menstrual Period: hysterectomy - Surgical History General Surgical History: Reports: Hysterectomy - Family History Family History: Reports: Unknown - Social History Smoking Status: Former smoker Hx Substance Use: No Alcohol Screening: Occasionally Physical Exam - Physical Exam Appearance: Well-appearing, No pain distress, Well-nourished Eyes: LAURIE, EOMI, Conjunctiva clear ENT: Ears normal, Nose normal, Oropharynx normal Respiratory: Airway patent, Breath sounds clear, Breath sounds equal, Respirations nonlabored Cardiovascular: RRR, Pulses normal, No rub, No murmur GI/: Soft, Nontender, No masses, Bowel sounds normal, No Organomegaly Musculoskeletal: Normal strength, ROM intact, No edema, No calf tenderness Skin: Warm, Dry, Normal color Neurological: Sensation intact, Motor intact, Reflexes intact, Cranial nerves intact, Alert, Oriented Psychiatric: Affect appropriate, Mood appropriate Interpretation - Radiology Interpretation Radiology Interpretation By: Radiologist Radiology Results: No acute changes Exam Interpreted: CT Scan (bibasilar infit, atlectasis) - Kiln Setter Rate: Normal Rhythm: Sinus Ectopy: None - EKG Interpretation Rate: Normal Rhythm: Sinus Ectopy: None Mora: NL ST Segment: Normal Physician Notification - Case Discussed Physician Notified: brittney SOSA Time of Notification: 18:20 Critical Care Note - Critical Care Note Total Time (mins): 0 Course - Course Hematology/Chemistry: 07/21/19 15:15 07/21/19 15:15 Orders, Labs, Meds: Lab Review 07/21/19 07/21/19 07/21/19 15:15 15:15 15:15 WBC 4.64 RBC 3.17 L Hgb 10.1 L Hct 30.1 L MCV 95.0 MCH 31.9 H MCHC 33.6 RDW Coeff of Kizzy 13.0 Plt Count 193 Immature Gran % (Auto) 0.9 Neut % (Auto) 59.1 Lymph % (Auto) 22.2 [place] % (Auto) 13.1 H Eos % (Auto) 4.1 Baso % (Auto) 0.6 Immature Gran # (Auto) 0.0 Neut # (Auto) 2.7 Lymph # (Auto) 1.0 [place] # (Auto) 0.6 Eos # (Auto) 0.2 Baso # (Auto) 0.0 PT 10.4 INR 1.06 APTT 28.1 Sodium 133.0 L Potassium 4.15 Chloride 97.7 L Carbon Dioxide 29.6 Anion Gap 9.85 BUN 8.2 Creatinine 0.55 L Estimated GFR (MDRD) 108.00 BUN/Creatinine Ratio 14.90 Glucose 103.6 Calcium 9.69 Total Bilirubin 0.61 AST 28.1 ALT 15.4 Alkaline Phosphatase 63.4 Total Creatine Kinase 67.8 Troponin I < 0.012 Total Protein 6.80 Albumin 3.91 Globulin 2.89 Albumin/Globulin Ratio 1.35 Orders Category Date Time Status EKG-(ED ONLY) Stat CARDIO 07/21/19 15:09 Completed NPO REMINDER: IMAGING ONCE CARE 07/21/19 15:02 Completed CBC W/ AUTO DIFF Stat LAB 07/21/19 15:15 Completed COMPREHENSIVE METABOLIC PANEL Stat LAB 07/21/19 15:15 Completed CREATINE KINASE Stat LAB 07/21/19 15:15 Completed PARTIAL THROMBOPLASTIN TIME Stat LAB 07/21/19 15:15 Completed PT WITH INR Stat LAB 07/21/19 15:15 Completed TROPONIN I Stat LAB 07/21/19 15:[address] CHEST W/O CONTRAST Stat RADS 07/21/19 15:08 Completed Vital Signs: Temp Pulse Resp BP Pulse Ox 07/21/19 14:35 98 F 74 24 157/119 H 97 Departure - Departure Time of Disposition: 18:20 Disposition: TSF SHORT-TRM HOSP Discharge Problem: Cough, Cough with hemoptysis Anemia Qualifiers: Anemia type: unspecified type Qualified Code(s): D64.9 - Anemia, unspecified Instructions: Hemoptysis (ED) Condition: Good Pt referred to PMD for follow-up: Yes IPMP verified?: No Additional Instructions: Please call your Family Physician as soon as possible to schedule a follow-up appointment. Allergies/Adverse Reactions: Allergies azithromycin [From Zithromax Z-Jhonatan] Allergy (Mild, Verified 07/21/19 14:46) Nausea Iodinated Contrast Media [Iodinated Contrast Media - IV Dye] Allergy (Verified 07/21/19 14:46) latex Allergy (Verified 07/21/19 14:46) TAPE Adverse Reaction (Mild, Uncoded 04/25/13 07:56) Rash Home Medications: Ambulatory Orders Pantoprazole Sodium [Protonix] 40 mg PO QDAC 04/29/14 Albuterol Sulfate [Proair Hfa] 2 puff IH Q6H PRN 12/19/17 Non-Formulary Medication 1 cap PO DAILY 11/15/18 Non-Formulary Medication 1 tab PO DAILY 11/15/18 Enoxaparin Sodium [Lovenox] 30 mg SQ DAILY 07/21/19 Hydrocodone/Acetaminophen [Hydrocodon-Acetaminophen 5-325] 1 each PO Q4HR PRN Transfer Form Completed: Yes Disposition Discussed With: Patient
[2019-07-21] MEDS ORDERED: ZOFRAN 4 MG/2 ML IM STA (18:43)
[2019-07-21] MEDS ORDERED: MORPHINE 2 MG/ML SYRINGE IM STA (18:43)
== END 2019-07-21 19:03 | disposition short-term general hospital (02) ==
LOC: ED 14:34
DX: R04.2 Hemoptysis (principal); D64.9 Anemia, unspecified; I10 Essential (primary) hypertension; Z98.890 Other specified postprocedural states; Z79.899 Other long term (current) drug therapy
CPT/HCPCS: 36415; 80053; 82550; 84484; 85025; 85610; 85730; 93005; 93010; 96372; 99285

== ENCOUNTER 2019-07-21 19:07 | Outpatient (CLI) ==
[2013-04-25 07:59] VITALS: TEMP 98
[2019-07-21 14:43] VITALS: BMI 30.5
== END 2019-07-21 19:30 | disposition short-term general hospital (02) ==
LOC: AMBL 19:07
PROVIDERS: ATTEND Internal Medicine
DX: R04.2 Hemoptysis (principal); Z87.01 Personal history of pneumonia (recurrent); Z98.890 Other specified postprocedural states; S72.009D Fracture of unspecified part of neck of unspecified femur, subsequent encounter for closed fracture with routine healing

== ENCOUNTER 2020-03-19 08:09 | Observation (INO) ==
[2020-03-18] MEDS: VENTOLIN HFA (PER PUFF-WITH SPACER) IH SCH ×3 (14:09→21:41)
[2020-03-18] MEDS: LOVENOX SUBCUT SCH (14:52)
[2020-03-18] MEDS: OMNICEF PO SCH ×2 (14:52→22:38)
[2020-03-18] MEDS: DOXYCYCLINE HYCLATE PO SCH ×2 (14:52→22:38)
--- NOTE | 2020-03-18 16:01 | PCM ---
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 R/B/A to these meds d/w patient. Discussed pros and cons of steroid use both injectible and oral forms. Discussed home use of inhaler and provided education on inhaler usage today. Consider alpha 1 antitrypsin as outpatient. Yearly spirometry encouraged. Complete as Outpatient. She has had pneumonia vax at age 64. - Admit to observation - Telemetry - Up with assist, bedside commode. - Lovenox for DVT prophy (see below). - CBC/CMP in am tomorrow - ABG reviewed and appears quite good/stable. - Await COVID-19 testing. - Regular diet. - no more steroids for now Decadron given in office 8mg. - Mucinex BID - Doxy 100 mg PO BID x 5 days, cefdinir 300 mg PO BID x 5 days ordered. - Concern for Pneumonia/COVID: Hypoxia in office, SOA reported, chills reported. She has not had fever. She has been in self isolation. She has been admitted to obs in room SCU1 with strict PPE. We will await her COVID-19 testing. I will cover with dual therapy with history of lung lobectomy and breast cancer. No needed ventilator at present. Maintaining O2 sats at >92% on 2L NC. No nebs while in hospital. Since her WBC was normal, temp normal, HR/RR okay, I did not order procalc/lactate. Low risks based on Modified Wells criteria (could not use PERC rule). Low risk group: 1.3% chance of PE in an ED population based on modified wells. NO Ddimer, no CT PE protocol at this time. (ALLERGY TO CONTRAST DYE) - Urine ag s. Pneumo - Urine ag Legionella. Injections as listed below - GERD: Established/Chronic problem. Stable at present. - HTN: Chronic Essential HTN at goal. Good BP control is encouraged with Goal BP based on JNC 8 guidelines of <140/90 for this patient. HR good, exam good. Echo reviewed from 2019 and stable. No c/o today. BP is stable. Continue aldactone. K+ looked fine. Continue diltiazem. - BMI 30: Discussed the federal guidelines suggest a healthy goal BMI of 18.5- 24.9 for people 18-65 and 23-30 for people age 65 and older. Overweight is considered BMI 25-30, Obesity 30-40 and Morbid obesity is defined as >100 lb overweight or BMI >40. With a BMI above goal, it is recommended to utilize a diet/exercise program to get back into the appropriate range. Consider referral to personal investment adviser. For BMI >40 consider referral to bariatrics. If not already monitoring intake. I would recommend at least to keep a food diary. Document everything that is consumed into a food diary. Studies have shown that patients can lose up to 2x the weight by keeping track of foods. Offered handout on weight loss techniques. Apps that may be of benefit include [employer]Arm[employer] Pal, Lose it. Regular exercise encouraged. Start with walking 5-10 minutes at a pace that is difficult to carry a conversation. If chest pain/SOA stop and f/u in office. - Breast cancer Left, Lung Resection Right Upper Lobe: Contribute to seriousness of 1+2 above but not addressed directly at this time. - Diet: Regular - DVT prophy: Lovenox 40mg sub Cut. - Code Status: Full Code. NO POA, no living will per patient. She will think more fully about this. - Disposition: I excpect patient to be in hospital for obs 24-48 hours. Xanax will be used up to TID PRn for anxiety. She will get albuterol 4-6 puffs q 4 hours, continue home medication. Discussed symptoms, COPD exacerbation. Bronchodilators and steroids are most beneficial. Her CBC looked aokay, CMp looked okay, CXR had minimal findings. In total >70 minutes spent with patient admission/discussion today.
[2020-03-18] MEDS: FLOVENT HFA 220 MCG IH SCH (22:37)
[2020-03-18] MEDS: CARDIZEM PO SCH (22:37)
[2020-03-19] MEDS: VENTOLIN HFA (PER PUFF-WITH SPACER) IH SCH ×3 (01:17→10:06)
[2020-03-19 06:10] LABS: HEMATOCRIT 38.3 % (37.0-47.0)
[2020-03-19 06:19] VITALS: BP 146/73; TEMP 97.8
[~2020-03-19 08:09] MED LIST: ANORO ELLIPTA 62.5-25 MCG INH IH SCH; MIRAPEX PO SCH; NON-FORMULARY MEDICATION (Doxycycline Hyclate 100 MG) PO SCH; OMNICEF PO SCH; TYLENOL PO PRN; VENTOLIN HFA (PER PUFF-WITH SPACER) IH SCH; XANAX PO PRN
--- NOTE | 2020-03-19 08:22 | PCM.DC ---
Final Diagnosis: 1. COPD Exacerbation: COVID-19 testing pending. 2. Hypoxia 3. History right upper lobectomy 4. History breast cancer left mastectomy bilateral reconstruction. 5. Chronic oxygen dependence 6. GERD: Stable 7. History of CHF: Echo 2019 normal EF 8. HTN: Chronic, up mildly with anxiety. 9. Anxiety: Chronic. Not on medications as OP. 10. BMI 30. (1) COPD exacerbation: Status: Acute Code(s): J44.1 - Chronic obstructive pulmonary disease with (acute) exacerbation SNOMED Code(s): 420461113 (2) Hypertension: Status: None SNOMED Code(s): 20721304 (3) Gastroesophageal reflux disease: Status: None SNOMED Code(s): 851124566 (4) CHF (congestive heart failure): Status: Acute Code(s): I50.9 - Heart failure, unspecified SNOMED Code(s): 21525569 (5) Dependence on supplemental oxygen: Status: Acute Code(s): Z99.81 - Dependence on supplemental oxygen SNOMED Code(s): 649245508965 Reason for Hospitalization: Hypoxia, Mild to moderate respiratory distress outpatient clinic, COVID-19 concern, pneumonia concern in light of upper lobectomy historically, chronic COPD and patient status. Prognosis at Discharge: Improved: Patient is at or near status of ~1 week ago. She ran out of O2 which exacerbated symptoms acutely yesterday. observation overnight showed normal tele, normal vitals to mild HTN, and RR/O2 stable when on Oxygen/appropriate pulmonary medications. Condition at Discharge: Improved/Stable. Medications at Discharge: Ambulatory Orders Medication Instructions Recorded albuterol sulfate [ProAir HFA] 2 puff INHALATION Q6H PRN 12/19/17 Flovent HFA 12 g INHALATION BID #1 inha 11/29/18 diltiazem HCl 60 mg PO BID #180 tab-cap 07/10/19 spironolactone [Aldactone] 25 mg PO EVERY OTHER DAY #45 tab 08/15/19 umeclidinium 62.5 mcg-vilanterol 1 ea INHALATION DAILY #1 inha 10/29/19 25 mcg/actuation powdr for inhalation pramipexole 0.125 mg tablet 0.125 mg PO BEDTIME 90 Days #90 mg 03/10/20 Biotin Plus Keratin 1 tab PO DAILY 03/18/20 Calcium 600 + D(3) 1 cap PO DAILY 03/18/20 Mucinex 1,200 mg PO BID 03/18/20 albuterol sulfate 2.5 mg IH Q4-6H PRN #90 ml 03/18/20 vitamin E 400 unit PO DAILY 03/18/20 zinc 50 mg PO DAILY 03/18/20 cefdinir 300 mg PO BID #9 cap 03/19/20 doxycycline hyclate 100 mg PO BID 4 Days #9 cap 03/19/20 Lab/Diagnostics: Laboratory Results - last 24 hr 03/18/20 03/18/20 03/19/20 13:50 17:10 06:00 WBC 4.88 RBC 4.21 Hgb 13.2 Hct 38.3 MCV 91.0 MCH 31.4 H MCHC 34.5 RDW Coeff of Kizzy 12.9 Plt Count 266 Immature Gran % (Auto) 0.6 Neut % (Auto) 73.8 Lymph % (Auto) 19.3 Gaston % (Auto) 5.9 Eos % (Auto) 0.0 Baso % (Auto) 0.4 Immature Gran # (Auto) 0.0 Neut # (Auto) 3.6 Lymph # (Auto) 0.9 Gaston # (Auto) 0.3 L Eos # (Auto) 0.0 Baso # (Auto) 0.0 Puncture Site R brach O2 Saturation 95.0 ABG pH 7.393 ABG pCO2 39.8 ABG pO2 75.0 L ABG HCO3 24.2 ABG Total CO2 25 ABG Base Excess -1 Keenan Test + O2 Delivery Device Nc Oxygen Liter Flow 2.00 Sodium Potassium Chloride Carbon Dioxide Anion Gap BUN Creatinine Estimated GFR (MDRD) BUN/Creatinine Ratio Glucose Calcium Total Bilirubin AST ALT Alkaline Phosphatase Total Protein Albumin Globulin Albumin/Globulin Ratio Miscellaneous Test 03/19/20 06:00 WBC RBC Hgb Hct MCV MCH MCHC RDW Coeff of Kizzy Plt Count Immature Gran % (Auto) Neut % (Auto) Lymph % (Auto) Gaston % (Auto) Eos % (Auto) Baso % (Auto) Immature Gran # (Auto) Neut # (Auto) Lymph # (Auto) Gaston # (Auto) Eos # (Auto) Baso # (Auto) Puncture Site O2 Saturation ABG pH ABG pCO2 ABG pO2 ABG HCO3 ABG Total CO2 ABG Base Excess Keenan Test O2 Delivery Device Oxygen Liter Flow Sodium 138.5 Potassium 4.17 Chloride 100.3 Carbon Dioxide 26.4 Anion Gap 15.97 BUN 11.1 Creatinine 0.57 L Estimated GFR (MDRD) 103.00 BUN/Creatinine Ratio 19.47 Glucose 135.0 H Calcium 9.90 Total Bilirubin 0.40 AST 41.6 H ALT 18.3 Alkaline Phosphatase 83.9 Total Protein 7.56 Albumin 4.28 Globulin 3.28 Albumin/Globulin Ratio 1.30 Miscellaneous Test CXR: Hyper inflation. No e/o Pneumonia. Education Provided to Patient and Family: - COPD - Tobacco/Dust/Chemical avoidance - Inhaler use - Antibiotic use (doxy particularly) - When to return to clinic vs ED. Follow-ups: 1. PRECIOUS Landers 0900 03/21/20. Discharge Disposition: Home Hospital Course: 74 year old CF presented to outpatient clinic 03/18/20 with 1 week worsening SOA, cough, sputum production, KAPLAN, Orthopnea. Known anxiety, history of CHF (2019 EF normal), chronic COPD on triple therapy (ANORO, Flovent HFA) and inhaled DELFIN. She has chronic O2 needs, using concentrator and tank. Ran out of O2 and presented hypoxic to clinic mildly tachypnic, afebrile, mildly hypertensive, normal HR. She was started on o2 given neb (which we quickly stopped due to COVID-19 recommendations) and PRECIOUS Landers and I discussed the patient status. We discussed outpatient CBC/CMP/CRP, CXR and Flu/COVID-19 testing as reasonable with PORT score/CURB65 supporting outpatient therapy. Patient was anxious/nervous and worried about her respirations and I agreed to observation admission to monitor her status overnight. She was started on doxy 100 BID/Cefdinir 300 BID to complete 5 day course to cover COPD exacerbation w/ possbility of pneumonia based on clinic appearance. Her outpatient labs returned COVID-19 pending. UA for legionella and S. Pneumo ordered/pending. No blood cultures ordered based on status of patient as well as no Procalc/lactate as she did not meet SIRS criteria. ABG ordered reviewed and Non-Gap Metabolic Acidosis. Primary Metabolic Acidosis, with: Appropriately Compensated by Respiratory Alkalosis. WBC 9.38, Hgb 13.4, plt 270, hct 40.5. ABG completed and O2 95%, pH 7.393, Co2 39.8, PO2 75, hc03 24.2, base excess -1, allens test +, NC 2 L. CMP showed sodium 137. K+ 4.32. Cl 99.6, bun 9.9, cr 0.59, gluocse 105.2, calcium normal at 9.76, AST 30.3 NL, ALT 14.6 NL. Alk phos NL 93. Alb normal 4.55. CXR completed: IMPRESSION: 1. No acute cardiopulmonary process. 2. Hyperinflated lungs suggest chronic obstructive pulmonary disease. She was admitted to observation, lovenox 40mg subcutaneous used for prevention. Low risk for DVT/PE based on modified wells criteria. Doxy 100 BID started w/ instruction to drink plenty of water, Cefdinir 300mg started BID, albuterol 4 puffs q 4 hours, continue anoro, continue flovent, continue mucinex/home meds. Xanax 0.25mg TID PRN for anxiety ordered. She was placed on telemetry. Overnight she did quite well. Reviewed nursing narratives and appreciate the care of nursing/RT. She had several short naps through the night and was up by 6 am fully AAOx3. She had decreased cough starting around 0200 and this continued unto this am. Resting vitals looked good. Tele throughout the night looked good with HR 70's-90's. Pulse ox 91-98 on 2L. SOA is better this am especially at rest. She still has some SOA/KAPLAN with ambulation but reports that this is normal for her. Am labs today showed WBC 4.88, Hgb 13.2, plt 266. CMP 138.5, K+ 4.15, CL 100.3, Cr 0.57, glucose 135, Calcium 9.9, AST 41.6. BP this am was 146/73, which is tolerable for patient w/ goal of <150/90. She slept well through night, tele reviewed throughout night, no arrhythmias. I talked with her this am, she is ready to go home. Breathing is better, she is less anxious as she was monitored overnight. We discussed pending COVID-19 testing, will call w/ update. When urine sent for legionella/S. Pneumonia will update. Discussed f/u with patient this tuesday. Discussed abx use 1 tonight then BID x 4 days. Discussed both abx. Discussed R/B/A to the abx, SE of doxy and to take on empty stomach, drink with full 12 oz water due to risks to esophagus. She has increased aeration all lung womack, coarse sounds increased, wheezing increased. She has opened up areas that were likely atelectatic/tight and she is breathing better today. She has reached point of maximal hospital benefit and will be d/c home with this am. She had no further questions, she agreed she felt ready for d/c and we discussed her f/u. Day of Discharge physical exam. Vital Signs - 24 hr 03/18/20 13:20 03/18/20 16:01 03/18/20 17:29 Temperature 98.1 F 98.1 F 97.6 F Pulse Rate 84 84 94 H Respiratory Rate 20 20 22 Blood Pressure 138/70 O2 Sat by Pulse Oximetry 98 98 95 03/18/20 20:00 03/18/20 22:00 03/19/20 00:00 Temperature 97.0 F L 97.2 F L Pulse Rate 98 H 81 Respiratory Rate 20 18 18 Blood Pressure 127/72 130/72 O2 Sat by Pulse Oximetry 96 96 03/19/20 06:00 Temperature 97.8 F Pulse Rate 86 Respiratory Rate 20 Blood Pressure 146/73 H O2 Sat by Pulse Oximetry 97 Constitutional: Appearance-No acute distress, sitting bedside, this am no respiratory distress, still w/ pursed lip breathing. Orientation- Oriented x 3, alert Gait-Not assessed. Build and Nutrition-[obese BMI 30] General- Patient is pleasant and cooperative with the interview and exam. Awake/alert and oriented x 3. Talks in full sentences, NC in place. ENMT: Nose and sinus- NC in place. External appearance normal and midline. Nares- bilateral quiet airflow, no discharge. Nasal mucosa- No bleeding noted and no ulcerations observed. Erythematous. Turbinates boggy, clear drainage. Lips- normal color, moist without cracks/lesions Oral Cavity/Palate- hard/soft palate intact without lesions, oral mucosa pink and moist. Tongue normal midline. Oropharynx- mild pharyngeal erythema, post nasal drainage. Uvula midline. No post nasal drip. No exudate. Salivary glands- Non tender to pal pation CHEST/LUNG: Inspection- Breasts surgically repaired/augmented. Stable effort RR 20. No distress, pursed lip breathing +, no use of accessory muscles. She has no tenderness along the bilateral ribs. Auscultation- Breath sounds diminished throughout all lung womack appears chronic but more aeration today. Increased Coarse sounds throughout, tracheal sounds, bronchial sounds overlying sternum, Bronchovessicular sounds between scapulae posteriorly, vessicular breath sounds heard throughout periphery. She has decreased aeration along the RUL she has had lobectomy. Bilaterally LL coarse sounds increased, rhonchi. Adventitious sounds- wheezes throughout, increased today. coarse sounds increased. Improved aeration, improved oxygenation. CARDIOVASCULAR: Normal PMI, No palpable thrill Auscultation- Regular rate and rhythm. No murmur noted in sitting, supine positions. Extremities- no digital clubbing, cyanosis, edema, increased warmth. ABDOMEN: Inspection- normal and no visible pulsations. Normal contour. Auscultation- Bowel sounds normal, no abdominal bruits. Palpation/Percussion- soft, non-tender, no rebound tenderness, no rigidity (guarding), no jar tenderness, no masses. Liver-no hepatomegaly, Spleen no splenomegaly, Hernias- none. Rectal not examined. Peripheral Vascular: Upper extremity Left- Normal temperature with pink nailbeds and no ulcerations. Upper extremity Right- Normal temperature with pink nailbeds and no ulcerations. Lower extremity- Normal temperature with pink nail beds and no ulcerations. DP pulses 2+ bilaterally. Pedal hair intact. Normal capillary refill. Edema- No edema. Musculoskeletal: Generalized-No generalized swelling or edema of extremities, no digital clubbing or cyanosis, neurovascularly intact all four extremities. Neurological: General- Moves all 4 extremities symmetrically. Symmetrical face and body posture. Neuropsych: Oriented- Person, place, time. (AAOx3), Mood/affect- normal and congruent. Able to articulate well. Speech-Normal speech, normal rate, normal tone, normal use of language, volume and coherence. Thought content- normal Judgment/insight- Appropriate. Knowledge- Age appropriate fund of knowledge, Plan: 1. D/C Home today. 2. I will follow up on COVID-19 testing. 3. Continue to use Albuterol inhaler x 1 week 4 puffs every 4 hours then resume 2 puffs q 4HR as needed 4. Continue to use ANORO as directed 5. Continue to use Flovent HFA twice daily. 6. Continue to use mucinex twice daily. 7. Antibiotics: Cefdinir 300mg take 1 tonight and then starting tomorrow twice daily until gone. Doxycycline 100mg take 1 tonight and then starting tomorrow twice daily until gone. 8. Avoid tobacco products of all kind active/passive and avoid chemical exposures/dust as able. 9. Recommend to use Mask when in public. 10. COVID-19 isolation per local recommendations. 11. Follow up in office 9 am on tuesday. 12. Good hand washing.
[2020-03-19] MEDS ORDERED: ANORO ELLIPTA 62.5-25 MCG INH IH SCH (09:00)
[2020-03-19] MEDS: LOVENOX SUBCUT SCH (09:05)
[2020-03-19] MEDS: FLOVENT HFA 220 MCG IH SCH (09:05)
[2020-03-19] MEDS: CARDIZEM PO SCH (09:06)
[2020-03-19] MEDS: DOXYCYCLINE HYCLATE PO SCH (09:06)
[2020-03-19] MEDS: OMNICEF PO SCH (09:06)
[2020-03-20] MEDS ORDERED: ALDACTONE PO SCH (09:00)
== END 2020-03-19 10:02 | disposition home or self-care (01) ==
LOC: SCU → UNDODISOB 08:09
PROVIDERS: ADMIT Family Medicine; ATTEND Family Medicine
DX: M54.9 Dorsalgia, unspecified; M25.552 Pain in left hip; J18.9 Pneumonia, unspecified organism; R07.9 Chest pain, unspecified; I50.9 Heart failure, unspecified; R53.1 Weakness; R06.03 Acute respiratory distress; E11.9 Type 2 diabetes mellitus without complications; R09.02 Hypoxemia; K21.9 Gastro-esophageal reflux disease without esophagitis; Z99.81 Dependence on supplemental oxygen; Z90.2 Acquired absence of lung [part of]; J44.0 Chronic obstructive pulmonary disease with (acute) lower respiratory infection; R51 Headache; Z85.3 Personal history of malignant neoplasm of breast; R53.83 Other fatigue; J44.1 Chronic obstructive pulmonary disease with (acute) exacerbation; F41.9 Anxiety disorder, unspecified; Z85.118 Personal history of other malignant neoplasm of bronchus and lung; Z68.30 Body mass index [BMI] 30.0-30.9, adult; Z96.642 Presence of left artificial hip joint; I10 Essential (primary) hypertension; Z79.899 Other long term (current) drug therapy; Z03.818 Encounter for observation for suspected exposure to other biological agents ruled out; R06.02 Shortness of breath